=== PATIENT | female | born 1935 | race Caucasian/White ===

== ENCOUNTER 2017-03-23 17:10 | Inpatient (IN) ==
[2017-03-23] MEDS ORDERED: SODIUM CHLORIDE 0.9% 500 ML IV STA (17:29)
[2017-03-23 18:14] LABS: Basophils % 0.4 % (0.0-0.8); Hematocrit 25.7 VOL% (35.7-47.0); Hemoglobin 7.5 GM/DL (12.0-16.0); Immature Granulocytes % 0.4 %; Immature Granulocytes Absolute 0.02 #; Lymphocytes # 0.7 10*3/uL (1.4-4.0); Lymphocytes % 14.5 % (21.3-54.2); Mean Corpuscular HGB Conc 29.2 GM/DL (32-36); Mean Corpuscular Hemoglobin 21 PG (27-34); Mean Corpuscular Volume 70.8 FL (87-102); Mean Platelet Volume 10.4 FL (9.6-12.0); Monocytes # 0.3 10*3/uL (0.11-0.8); Monocytes % 6.7 % (1.7-12.7); Neutrophils # 3.7 10*3/uL (1.4-7.4); Platelet Count 285 T/CUMM (130-400); Red Blood Count 3.63 MC/CUMM (3.8-5.5); Red Cell Distribution Width 17.3 % (9.3-17.3); White Blood Count 4.8 T/CUMM (4-12)
[2017-03-23] MEDS ORDERED: SODIUM CHLORIDE 0.9% 1,000 ML IV PRN (18:24)
[2017-03-23 18:33] LABS: Alanine Aminotransferase 23 U/L (13-56); Albumin 3.9 G/DL (3.4-5.0); Alkaline Phosphatase 86 U/L (45-117); Aspartate Amino Transferase 28 U/L (0-37); Blood Urea Nitrogen 17 MG/DL (7-18); Calcium 9.6 MG/DL (8.5-10.1); Glucose 152 MG/DL (74-106); Osmolality,Calculated 270.4 MOS/KG (273-304); Potassium 3.8 MMOL/L (3.5-5.1); Sodium 133 MMOL/L (136-145); Total Protein 7.3 G/DL (6.4-8.3); Troponin I Only < 0.015 NG/ML (0.00-0.045)
[2017-03-23 18:35] LABS: INR 1.1; PT Patient Result 11.9 SECS
[2017-03-23] MEDS ORDERED: LABETALOL 20 MG/4 ML SYRINGE IV PRN (19:30)
[2017-03-23] MEDS ORDERED: DEXTROSE 50% 25 GM/50 ML VIAL IV PRN ×2 (19:30)
[2017-03-23] MEDS ORDERED: GLUCAGON 1 MG VIAL IM PRN ×2 (19:30)
[2017-03-23 20:29] LABS: Risk Ratio 4.37
[2017-03-23] MEDS: INSULIN REGULAR 100 UNIT/ML SUBCUT SCH (23:02)
[2017-03-23] MEDS: ACETAMINOPHEN 325 MG TABLET PO PRN (23:18)
[2017-03-23] MEDS: ZALEPLON 5 MG CAPSULE PO SCH (23:20)
[2017-03-24 06:01] LABS: Basophils % 0.7 % (0.0-0.8); Eosinophils % 0.3 % (0.00-10.9); Hematocrit 29.3 VOL% (35.7-47.0); Immature Granulocytes % 0.3 %; Immature Granulocytes Absolute 0.02 #; Lymphocytes # 1.7 10*3/uL (1.4-4.0); Lymphocytes % 28.1 % (21.3-54.2); Mean Corpuscular HGB Conc 30.7 GM/DL (32-36); Mean Corpuscular Hemoglobin 22 PG (27-34); Mean Corpuscular Volume 71.5 FL (87-102); Mean Platelet Volume 10.9 FL (9.6-12.0); Monocytes # 0.5 10*3/uL (0.11-0.8); Monocytes % 7.5 % (1.7-12.7); Neutrophils # 3.8 10*3/uL (1.4-7.4); Neutrophils % 63.1 % (38.7-73.9); Platelet Count 286 T/CUMM (130-400); Red Cell Distribution Width 18.5 % (9.3-17.3)
[2017-03-24 06:33] LABS: Albumin 3.6 G/DL (3.4-5.0); Bilirubin,Total 1.7 MG/DL (0.2-1.0); Calcium 9.3 MG/DL (8.5-10.1); Osmolality,Calculated 274.7 MOS/KG (273-304); Potassium 3.2 MMOL/L (3.5-5.1); Total Protein 7.2 G/DL (6.4-8.3)
[2017-03-24 06:50] LABS: Apearance,Urine Slightly Hazy (Clear); Bacteria,Urine Many /HPF (Few); Bilirubin,Urine Negative (Negative); Blood, Urine Small mg/dL (Negative); Glucose,Urine (UA) Negative (Negative); Ketones,Urine 5 mg/dL (Negative); Mucus,Urine Occasional /LPF (Occasional); Nitrite,Urine Positive (Negative); Protein,Urine 30 MG/DL; RBC,Urine 4 /HPF (0-4); Squamous Epithelial Cell,Urine Occasional /HPF (0-10); Urine Color Yellow (Yellow); Urine Specific Gravity 1.008 (1.001-1.035); Urine Urobilinogen < 2.0 EU/DL (0.2-1.0); WBC,Urine 16 /HPF (0-6)
[2017-03-24] MEDS ORDERED: INSULIN NPH/REGULAR 70/30 100 UNIT/ML SUBCUT PRN (07:22)
[2017-03-24] MEDS ORDERED: POTASSIUM CHLORIDE 20 MEQ TABLET PO ONE (07:25)
[2017-03-24] MEDS: NORTRIPTYLINE 25 MG CAPSULE PO SCH ×2 (08:51→20:51)
[2017-03-24] MEDS: PARoxetine 20 MG TABLET PO SCH (08:51)
[2017-03-24] MEDS: CIPROFLOXACIN 500 MG TABLET PO SCH ×2 (08:51→20:51)
[2017-03-24] MEDS: ASPIRIN EC 81 MG TABLET PO SCH (08:51)
[2017-03-24] MEDS: METOPROLOL TARTRATE 50 MG TABLET PO SCH ×2 (08:51→20:51)
[2017-03-24] MEDS: LISINOPRIL 2.5 MG TABLET PO SCH (08:52)
[2017-03-24] MEDS: INSULIN REGULAR 100 UNIT/ML SUBCUT SCH ×4 (08:52→21:12)
[2017-03-24] MEDS: POTASSIUM CHLORIDE 20 MEQ TABLET PO SCH (17:57)
[2017-03-24] MEDS: INSULIN NPH/REGULAR 70/30 100 UNIT/ML SUBCUT SCH (17:57)
[2017-03-24] MEDS: ONDANSETRON 4 MG/2 ML VIAL IV PRN (18:52)
[2017-03-24] MEDS: ATORVASTATIN 40 MG TABLET PO SCH (20:51)
[2017-03-24] MEDS: ZALEPLON 5 MG CAPSULE PO SCH (20:52)
[2017-03-25] MEDS: ACETAMINOPHEN 325 MG TABLET PO PRN ×2 (03:31→17:53)
[2017-03-25] MEDS: hydrALAZINE 20 MG/1 ML VIAL IV PRN (05:29)
[2017-03-25 06:32] LABS: Basophils # 0.1 10*3/uL (0.0-0.2); Basophils % 0.8 % (0.0-0.8); Eosinophils # 0.2 10*3/uL (0.0-0.87); Eosinophils % 2.2 % (0.00-10.9); Hematocrit 30.3 VOL% (35.7-47.0); Hemoglobin 9.2 GM/DL (12.0-16.0); Immature Granulocytes % 0.4 %; Immature Granulocytes Absolute 0.03 #; Lymphocytes # 1.9 10*3/uL (1.4-4.0); Lymphocytes % 25.5 % (21.3-54.2); Mean Corpuscular HGB Conc 30.4 GM/DL (32-36); Mean Corpuscular Hemoglobin 21 PG (27-34); Mean Corpuscular Volume 70.5 FL (87-102); Mean Platelet Volume 10.4 FL (9.6-12.0); Monocytes # 0.6 10*3/uL (0.11-0.8); Monocytes % 8.1 % (1.7-12.7); Neutrophils # 4.7 10*3/uL (1.4-7.4); Platelet Count 286 T/CUMM (130-400); Red Cell Distribution Width 18.8 % (9.3-17.3); White Blood Count 7.4 T/CUMM (4-12)
[2017-03-25 06:59] LABS: Calcium 9.3 MG/DL (8.5-10.1); Magnesium 1.9 MG/DL (1.8-2.4); Potassium 3.4 MMOL/L (3.5-5.1)
[2017-03-25] MEDS: ONDANSETRON 4 MG/2 ML VIAL IV PRN ×2 (08:15→17:53)
[2017-03-25] MEDS: PARoxetine 20 MG TABLET PO SCH (08:17)
[2017-03-25] MEDS: NORTRIPTYLINE 25 MG CAPSULE PO SCH ×2 (08:17→21:43)
[2017-03-25] MEDS: CIPROFLOXACIN 500 MG TABLET PO SCH ×2 (08:17→21:43)
[2017-03-25] MEDS: LISINOPRIL 2.5 MG TABLET PO SCH (08:17)
[2017-03-25] MEDS: ASPIRIN EC 81 MG TABLET PO SCH (08:18)
[2017-03-25] MEDS: INSULIN REGULAR 100 UNIT/ML SUBCUT SCH ×4 (08:18→21:43)
[2017-03-25] MEDS: METOPROLOL TARTRATE 50 MG TABLET PO SCH ×2 (08:18→21:43)
[2017-03-25] MEDS: INSULIN NPH/REGULAR 70/30 100 UNIT/ML SUBCUT SCH (17:45)
[2017-03-25] MEDS: POTASSIUM CHLORIDE 20 MEQ TABLET PO SCH (17:50)
[2017-03-25] MEDS ORDERED: traMADol 50 MG TABLET PO PRN (18:25)
[2017-03-25] MEDS: ATORVASTATIN 40 MG TABLET PO SCH (21:43)
[2017-03-25] MEDS: ZALEPLON 5 MG CAPSULE PO SCH (21:43)
[2017-03-26] MEDS: ONDANSETRON 4 MG/2 ML VIAL IV PRN (09:34)
[2017-03-26] MEDS: CIPROFLOXACIN 500 MG TABLET PO SCH ×2 (09:39→22:03)
[2017-03-26] MEDS: NORTRIPTYLINE 25 MG CAPSULE PO SCH ×2 (09:39→22:03)
[2017-03-26] MEDS: ASPIRIN EC 81 MG TABLET PO SCH (09:39)
[2017-03-26] MEDS: METOPROLOL TARTRATE 50 MG TABLET PO SCH ×2 (09:39→22:02)
[2017-03-26] MEDS: LISINOPRIL 2.5 MG TABLET PO SCH (09:39)
[2017-03-26] MEDS: PARoxetine 20 MG TABLET PO SCH (09:39)
[2017-03-26] MEDS: INSULIN REGULAR 100 UNIT/ML SUBCUT SCH ×4 (09:40→22:04)
[2017-03-26] MEDS ORDERED: POTASSIUM CHLORIDE 20 MEQ TABLET PO ONE (10:51)
[2017-03-26] MEDS: MECLIZINE 25 MG TABLET PO SCH ×2 (17:13→22:02)
[2017-03-26] MEDS: INSULIN NPH/REGULAR 70/30 100 UNIT/ML SUBCUT SCH (17:14)
[2017-03-26] MEDS: POTASSIUM CHLORIDE 20 MEQ TABLET PO SCH (17:16)
[2017-03-26] MEDS: ATORVASTATIN 40 MG TABLET PO SCH (22:03)
[2017-03-26] MEDS: ZALEPLON 5 MG CAPSULE PO SCH (22:03)
[2017-03-27 06:54] LABS: Calcium 9.4 MG/DL (8.5-10.1); Magnesium 1.9 MG/DL (1.8-2.4); Potassium 4.2 MMOL/L (3.5-5.1)
[2017-03-27] MEDS: NORTRIPTYLINE 25 MG CAPSULE PO SCH ×2 (09:51→21:56)
[2017-03-27] MEDS: LISINOPRIL 2.5 MG TABLET PO SCH (09:51)
[2017-03-27] MEDS: MECLIZINE 25 MG TABLET PO SCH ×3 (09:52→21:56)
[2017-03-27] MEDS: CIPROFLOXACIN 500 MG TABLET PO SCH ×2 (09:52→21:56)
[2017-03-27] MEDS: PARoxetine 20 MG TABLET PO SCH (09:52)
[2017-03-27] MEDS: ASPIRIN EC 81 MG TABLET PO SCH (09:52)
[2017-03-27] MEDS: METOPROLOL TARTRATE 50 MG TABLET PO SCH ×2 (09:52→21:55)
[2017-03-27] MEDS: INSULIN REGULAR 100 UNIT/ML SUBCUT SCH ×4 (09:52→22:00)
[2017-03-27] MEDS: PROMETHAZINE INJ 12.5 MG in SODIUM CHLORIDE 0.9% 50 ML IV PRN (13:29)
[2017-03-27] MEDS: INSULIN NPH/REGULAR 70/30 100 UNIT/ML SUBCUT SCH (17:25)
[2017-03-27] MEDS: POTASSIUM CHLORIDE 20 MEQ TABLET PO SCH (17:26)
[2017-03-27] MEDS: ZALEPLON 5 MG CAPSULE PO SCH (21:55)
[2017-03-27] MEDS: ATORVASTATIN 40 MG TABLET PO SCH (21:56)
[2017-03-28] MEDS: INSULIN REGULAR 100 UNIT/ML SUBCUT SCH ×4 (07:13→22:19)
[2017-03-28] MEDS: NORTRIPTYLINE 25 MG CAPSULE PO SCH ×2 (08:28→22:18)
[2017-03-28] MEDS: LISINOPRIL 2.5 MG TABLET PO SCH (08:28)
[2017-03-28] MEDS: ASPIRIN EC 81 MG TABLET PO SCH (08:29)
[2017-03-28] MEDS: METOPROLOL TARTRATE 50 MG TABLET PO SCH ×2 (08:29→22:18)
[2017-03-28] MEDS: PARoxetine 20 MG TABLET PO SCH (08:29)
[2017-03-28] MEDS: MECLIZINE 25 MG TABLET PO SCH ×3 (08:29→22:16)
[2017-03-28] MEDS: CIPROFLOXACIN 500 MG TABLET PO SCH ×2 (08:29→22:17)
[2017-03-28] MEDS ORDERED: DIAZEPAM 5 MG TABLET PO ONE (10:08)
[2017-03-28] MEDS: INSULIN NPH/REGULAR 70/30 100 UNIT/ML SUBCUT SCH (16:39)
[2017-03-28] MEDS: POTASSIUM CHLORIDE 20 MEQ TABLET PO SCH (16:55)
[2017-03-28] MEDS: ZALEPLON 5 MG CAPSULE PO SCH (22:16)
[2017-03-28] MEDS: ATORVASTATIN 40 MG TABLET PO SCH (22:17)
[2017-03-29] MEDS: MORPHINE 2 MG/1 ML SYRINGE IV PRN ×5 (01:08→22:47)
[2017-03-29] MEDS: NORTRIPTYLINE 25 MG CAPSULE PO SCH ×2 (10:41→22:46)
[2017-03-29] MEDS: LISINOPRIL 2.5 MG TABLET PO SCH (10:41)
[2017-03-29] MEDS: PARoxetine 20 MG TABLET PO SCH (10:41)
[2017-03-29] MEDS: MECLIZINE 25 MG TABLET PO SCH ×3 (10:41→22:47)
[2017-03-29] MEDS: CIPROFLOXACIN 500 MG TABLET PO SCH ×2 (10:41→22:46)
[2017-03-29] MEDS: ASPIRIN EC 81 MG TABLET PO SCH (10:41)
[2017-03-29] MEDS: METOPROLOL TARTRATE 50 MG TABLET PO SCH ×2 (10:41→22:46)
[2017-03-29] MEDS: INSULIN REGULAR 100 UNIT/ML SUBCUT SCH ×3 (12:57→22:53)
[2017-03-29] MEDS: PROMETHAZINE INJ 12.5 MG in SODIUM CHLORIDE 0.9% 50 ML IV PRN ×2 (14:19→22:51)
[2017-03-29] MEDS: INSULIN NPH/REGULAR 70/30 100 UNIT/ML SUBCUT SCH (17:53)
[2017-03-29] MEDS: POTASSIUM CHLORIDE 20 MEQ TABLET PO SCH (18:08)
[2017-03-29] MEDS: ZALEPLON 5 MG CAPSULE PO SCH (22:45)
[2017-03-29] MEDS: ATORVASTATIN 40 MG TABLET PO SCH (22:46)
[2017-03-30] MEDS: MORPHINE 2 MG/1 ML SYRINGE IV PRN ×3 (04:01→21:12)
[2017-03-30] MEDS: MECLIZINE 25 MG TABLET PO SCH ×3 (09:10→21:16)
[2017-03-30] MEDS: PARoxetine 20 MG TABLET PO SCH (09:10)
[2017-03-30] MEDS: LISINOPRIL 2.5 MG TABLET PO SCH (09:10)
[2017-03-30] MEDS: CIPROFLOXACIN 500 MG TABLET PO SCH ×2 (09:10→21:16)
[2017-03-30] MEDS: METOPROLOL TARTRATE 50 MG TABLET PO SCH ×2 (09:10→21:16)
[2017-03-30] MEDS: NORTRIPTYLINE 25 MG CAPSULE PO SCH ×2 (09:10→21:16)
[2017-03-30] MEDS: INSULIN REGULAR 100 UNIT/ML SUBCUT SCH ×4 (09:10→21:18)
[2017-03-30] MEDS: ASPIRIN EC 81 MG TABLET PO SCH (09:10)
[2017-03-30] MEDS: PROMETHAZINE INJ 12.5 MG in SODIUM CHLORIDE 0.9% 50 ML IV PRN (15:14)
[2017-03-30] MEDS: POTASSIUM CHLORIDE 20 MEQ TABLET PO SCH (16:42)
[2017-03-30] MEDS: INSULIN NPH/REGULAR 70/30 100 UNIT/ML SUBCUT SCH (16:44)
[2017-03-30] MEDS: ATORVASTATIN 40 MG TABLET PO SCH (21:16)
[2017-03-30] MEDS: ZALEPLON 5 MG CAPSULE PO SCH (21:16)
[2017-03-31] MEDS: MORPHINE 2 MG/1 ML SYRINGE IV PRN ×4 (00:40→22:44)
[2017-03-31] MEDS: hydrALAZINE 20 MG/1 ML VIAL IV PRN (06:17)
[2017-03-31] MEDS: MECLIZINE 25 MG TABLET PO SCH ×3 (09:51→22:00)
[2017-03-31] MEDS: LISINOPRIL 5 MG TABLET PO SCH (09:51)
[2017-03-31] MEDS: ASPIRIN EC 81 MG TABLET PO SCH (09:52)
[2017-03-31] MEDS: NORTRIPTYLINE 25 MG CAPSULE PO SCH ×2 (09:52→22:00)
[2017-03-31] MEDS: PARoxetine 20 MG TABLET PO SCH (09:52)
[2017-03-31] MEDS: METOPROLOL TARTRATE 50 MG TABLET PO SCH ×2 (09:52→22:00)
[2017-03-31] MEDS: INSULIN REGULAR 100 UNIT/ML SUBCUT SCH ×3 (09:52→22:02)
[2017-03-31] MEDS: PROCHLORPERAZINE 5 MG TABLET PO SCH ×2 (10:02→22:00)
[2017-03-31] MEDS: POTASSIUM CHLORIDE 20 MEQ TABLET PO SCH (17:30)
[2017-03-31] MEDS: ATORVASTATIN 40 MG TABLET PO SCH (22:00)
[2017-04-01 05:56] LABS: Calcium 9.3 MG/DL (8.5-10.1); Osmolality,Calculated 275.8 MOS/KG (273-304); Potassium 4.3 MMOL/L (3.5-5.1)
[2017-04-01] MEDS: hydrALAZINE 20 MG/1 ML VIAL IV PRN (09:12)
[2017-04-01] MEDS: PARoxetine 20 MG TABLET PO SCH (09:16)
[2017-04-01] MEDS: METOPROLOL TARTRATE 50 MG TABLET PO SCH ×2 (09:16→20:49)
[2017-04-01] MEDS: NORTRIPTYLINE 25 MG CAPSULE PO SCH ×2 (09:16→20:50)
[2017-04-01] MEDS: ASPIRIN EC 81 MG TABLET PO SCH (09:16)
[2017-04-01] MEDS: MECLIZINE 25 MG TABLET PO SCH ×3 (09:16→20:50)
[2017-04-01] MEDS: LISINOPRIL 5 MG TABLET PO SCH (09:16)
[2017-04-01] MEDS: INSULIN REGULAR 100 UNIT/ML SUBCUT SCH ×4 (09:16→21:04)
[2017-04-01] MEDS: PROCHLORPERAZINE 5 MG TABLET PO SCH ×2 (09:19→20:50)
[2017-04-01] MEDS: MORPHINE 2 MG/1 ML SYRINGE IV PRN ×2 (14:34→20:59)
[2017-04-01] MEDS: POTASSIUM CHLORIDE 20 MEQ TABLET PO SCH (17:59)
[2017-04-01] MEDS: ATORVASTATIN 40 MG TABLET PO SCH (20:50)
[2017-04-02] MEDS: MORPHINE 2 MG/1 ML SYRINGE IV PRN ×4 (04:20→16:53)
[2017-04-02] MEDS: INSULIN REGULAR 100 UNIT/ML SUBCUT SCH ×4 (08:15→20:34)
[2017-04-02] MEDS: MECLIZINE 25 MG TABLET PO SCH ×3 (10:22→20:34)
[2017-04-02] MEDS: ASPIRIN EC 81 MG TABLET PO SCH (10:22)
[2017-04-02] MEDS: PARoxetine 20 MG TABLET PO SCH (10:23)
[2017-04-02] MEDS: METOPROLOL TARTRATE 50 MG TABLET PO SCH ×2 (10:23→20:34)
[2017-04-02] MEDS: LISINOPRIL 5 MG TABLET PO SCH (10:23)
[2017-04-02] MEDS: NORTRIPTYLINE 25 MG CAPSULE PO SCH ×2 (10:23→20:34)
[2017-04-02] MEDS: PROCHLORPERAZINE 5 MG TABLET PO SCH ×2 (10:23→20:34)
[2017-04-02] MEDS: POTASSIUM CHLORIDE 20 MEQ TABLET PO SCH (16:54)
[2017-04-02] MEDS: ZALEPLON 5 MG CAPSULE PO SCH (20:34)
[2017-04-02] MEDS: ATORVASTATIN 40 MG TABLET PO SCH (20:34)
[2017-04-03] MEDS: MORPHINE 2 MG/1 ML SYRINGE IV PRN ×5 (02:48→21:01)
[2017-04-03] MEDS: INSULIN REGULAR 100 UNIT/ML SUBCUT SCH ×4 (08:00→21:11)
[2017-04-03] MEDS: PROCHLORPERAZINE 5 MG TABLET PO SCH ×2 (08:18→21:01)
[2017-04-03] MEDS: MECLIZINE 25 MG TABLET PO SCH ×3 (08:18→21:00)
[2017-04-03] MEDS: ASPIRIN EC 81 MG TABLET PO SCH (08:18)
[2017-04-03] MEDS: METOPROLOL TARTRATE 50 MG TABLET PO SCH ×2 (08:19→21:00)
[2017-04-03] MEDS: NORTRIPTYLINE 25 MG CAPSULE PO SCH ×2 (08:19→21:00)
[2017-04-03] MEDS: LISINOPRIL 5 MG TABLET PO SCH (08:20)
[2017-04-03] MEDS: PARoxetine 20 MG TABLET PO SCH (08:20)
[2017-04-03] MEDS: POTASSIUM CHLORIDE 20 MEQ TABLET PO SCH (16:31)
[2017-04-03] MEDS: ZALEPLON 5 MG CAPSULE PO SCH (21:00)
[2017-04-03] MEDS: ATORVASTATIN 40 MG TABLET PO SCH (21:00)
[2017-04-04] MEDS: INSULIN REGULAR 100 UNIT/ML SUBCUT SCH ×2 (07:57→11:41)
[2017-04-04] MEDS: ASPIRIN EC 81 MG TABLET PO SCH (08:33)
[2017-04-04] MEDS: METOPROLOL TARTRATE 50 MG TABLET PO SCH (08:33)
[2017-04-04] MEDS: MECLIZINE 25 MG TABLET PO SCH (08:33)
[2017-04-04] MEDS: PARoxetine 20 MG TABLET PO SCH (08:33)
[2017-04-04] MEDS: LISINOPRIL 5 MG TABLET PO SCH (08:33)
[2017-04-04] MEDS: NORTRIPTYLINE 25 MG CAPSULE PO SCH (08:33)
[2017-04-04] MEDS: MORPHINE 2 MG/1 ML SYRINGE IV PRN (08:39)
[2017-04-04] MEDS: PROCHLORPERAZINE 5 MG TABLET PO SCH (08:39)
[2017-04-04 12:07] VITALS: BP 141/88
== END 2017-04-04 14:00 | DRG 65 ==
LOC: EDBD → EDUNIT# → N.ED 17:10 → SUATTDRO 19:30 → N.EDINP 19:30 → N.2E 20:45
PROVIDERS: ADMIT Family Medicine; ATTEND Internal Medicine

== ENCOUNTER 2017-04-11 12:00 | Observation (INO) ==
[2017-04-11 12:57] LABS: Basophils % 0.8 % (0.0-0.8); Eosinophils # 0.1 10*3/uL (0.0-0.87); Eosinophils % 2.4 % (0.00-10.9); Hematocrit 27.6 VOL% (35.7-47.0); Hemoglobin 8.1 GM/DL (12.0-16.0); Immature Granulocytes % 0.4 %; Immature Granulocytes Absolute 0.02 #; Lymphocytes # 1.3 10*3/uL (1.4-4.0); Lymphocytes % 26.2 % (21.3-54.2); Mean Corpuscular HGB Conc 29.3 GM/DL (32-36); Mean Corpuscular Hemoglobin 22 PG (27-34); Mean Corpuscular Volume 74.8 FL (87-102); Monocytes # 0.3 10*3/uL (0.11-0.8); Neutrophils # 3.2 10*3/uL (1.4-7.4); Neutrophils % 64.2 % (38.7-73.9); Platelet Count 348 T/CUMM (130-400); Red Blood Count 3.69 MC/CUMM (3.8-5.5); Red Cell Distribution Width 21.7 % (9.3-17.3)
[2017-04-11 13:13] LABS: PT Patient Result 10.9 SECS; Partial Thromboplastin Time 26.5 SECS (0-40)
[2017-04-11 13:18] LABS: Albumin 3.4 G/DL (3.4-5.0); Bilirubin,Total 0.4 MG/DL (0.2-1.0); Calcium 9.4 MG/DL (8.5-10.1); Osmolality,Calculated 273.1 MOS/KG (273-304); Potassium 5.2 MMOL/L (3.5-5.1); Total Protein 6.6 G/DL (6.4-8.3)
[2017-04-11] MEDS ORDERED: DOCUSATE SODIUM 100 MG CAPSULE PO PRN (14:23)
[2017-04-11] MEDS ORDERED: diphenhydrAMINE CAP 25 MG CAPSULE PO PRN (14:23)
[2017-04-11] MEDS ORDERED: guaiFENesin/DM ER 600-30 MG TABLET PO PRN (14:23)
[2017-04-11] MEDS ORDERED: ONDANSETRON 4 MG/2 ML VIAL IV PRN (14:23)
[2017-04-11] MEDS ORDERED: GLUCAGON 1 MG VIAL IM PRN (14:58)
[2017-04-11] MEDS ORDERED: DEXTROSE 50% 25 GM/50 ML VIAL IV PRN (14:58)
[2017-04-11] MEDS: PROCHLORPERAZINE 10 MG TABLET PO SCH ×2 (15:50→22:56)
[2017-04-11] MEDS: METOPROLOL TARTRATE 50 MG TABLET PO SCH ×2 (15:51→22:56)
[2017-04-11] MEDS: ASPIRIN EC 81 MG TABLET PO SCH (15:51)
[2017-04-11] MEDS: LISINOPRIL 5 MG TABLET PO SCH (15:51)
[2017-04-11] MEDS: MECLIZINE 25 MG TABLET PO SCH ×2 (15:51→22:57)
[2017-04-11] MEDS: NORTRIPTYLINE 25 MG CAPSULE PO SCH ×2 (15:51→22:57)
[2017-04-11] MEDS: PANTOPRAZOLE 40 MG TABLET PO SCH (15:51)
[2017-04-11] MEDS: INSULIN LISPRO 100 UNIT/ML SUBCUT SCH (16:29)
[2017-04-11] MEDS: POTASSIUM CHLORIDE 20 MEQ TABLET PO SCH (16:48)
[2017-04-11 16:51] LABS: Troponin I Only < 0.015 NG/ML (0.00-0.045)
[2017-04-11 19:06] LABS: Troponin I Only < 0.015 NG/ML (0.00-0.045)
[2017-04-11] MEDS: ZALEPLON 5 MG CAPSULE PO SCH (22:57)
[2017-04-11] MEDS: ATORVASTATIN 40 MG TABLET PO SCH (22:57)
[2017-04-11] MEDS: ACETAMINOPHEN 325 MG TABLET PO PRN (23:02)
[2017-04-12] MEDS: ACETAMINOPHEN 325 MG TABLET PO PRN (04:14)
[2017-04-12 05:26] LABS: Basophils % 0.6 % (0.0-0.8); Eosinophils # 0.1 10*3/uL (0.0-0.87); Hematocrit 27.7 VOL% (35.7-47.0); Hemoglobin 8.1 GM/DL (12.0-16.0); Immature Granulocytes % 0.4 %; Immature Granulocytes Absolute 0.03 #; Lymphocytes # 1.6 10*3/uL (1.4-4.0); Mean Corpuscular HGB Conc 29.2 GM/DL (32-36); Mean Corpuscular Hemoglobin 22 PG (27-34); Mean Corpuscular Volume 73.7 FL (87-102); Mean Platelet Volume 10.2 FL (9.6-12.0); Monocytes # 0.5 10*3/uL (0.11-0.8); Monocytes % 6.9 % (1.7-12.7); Neutrophils # 4.7 10*3/uL (1.4-7.4); Neutrophils % 67.1 % (38.7-73.9); Platelet Count 331 T/CUMM (130-400); Red Blood Count 3.76 MC/CUMM (3.8-5.5); Red Cell Distribution Width 21.8 % (9.3-17.3)
[2017-04-12 05:55] LABS: Calcium 9.4 MG/DL (8.5-10.1); Magnesium 1.9 MG/DL (1.8-2.4); Osmolality,Calculated 278.7 MOS/KG (273-304); Potassium 4.1 MMOL/L (3.5-5.1)
[2017-04-12] MEDS: INSULIN LISPRO 100 UNIT/ML SUBCUT SCH ×2 (08:13→16:02)
[2017-04-12] MEDS: METOPROLOL TARTRATE 50 MG TABLET PO SCH ×2 (09:15→20:58)
[2017-04-12] MEDS: NORTRIPTYLINE 25 MG CAPSULE PO SCH ×2 (09:15→20:58)
[2017-04-12] MEDS: PROCHLORPERAZINE 10 MG TABLET PO SCH ×2 (09:15→20:58)
[2017-04-12] MEDS: MECLIZINE 25 MG TABLET PO SCH ×3 (09:15→20:58)
[2017-04-12] MEDS: PARoxetine 20 MG TABLET PO SCH (09:16)
[2017-04-12] MEDS: LISINOPRIL 5 MG TABLET PO SCH (09:16)
[2017-04-12] MEDS: PANTOPRAZOLE 40 MG TABLET PO SCH (09:16)
[2017-04-12] MEDS: ASPIRIN EC 81 MG TABLET PO SCH (09:16)
[2017-04-12] MEDS ORDERED: INSULIN NPH/REGULAR 70/30 100 UNIT/ML SUBCUT PRN (10:23)
[2017-04-12] MEDS ORDERED: hydrALAZINE 20 MG/1 ML VIAL IV PRN (10:26)
[2017-04-12] MEDS: INSULIN REGULAR 100 UNIT/ML SUBCUT SCH ×3 (12:30→21:52)
[2017-04-12] MEDS: metFORMIN 850 MG TABLET PO SCH (16:43)
[2017-04-12] MEDS: POTASSIUM CHLORIDE 20 MEQ TABLET PO SCH (16:43)
[2017-04-12] MEDS: INSULIN NPH/REGULAR 70/30 100 UNIT/ML SUBCUT SCH (16:43)
[2017-04-12] MEDS: ATORVASTATIN 40 MG TABLET PO SCH (20:58)
[2017-04-12] MEDS: ZALEPLON 5 MG CAPSULE PO SCH (20:58)
[2017-04-12] MEDS: MORPHINE 2 MG/1 ML SYRINGE IV PRN (20:58)
[2017-04-13] MEDS: MORPHINE 2 MG/1 ML SYRINGE IV PRN ×2 (01:02→08:01)
[2017-04-13] MEDS: metFORMIN 850 MG TABLET PO SCH ×2 (08:47→17:35)
[2017-04-13] MEDS: LISINOPRIL 5 MG TABLET PO SCH (08:47)
[2017-04-13] MEDS: ASPIRIN EC 81 MG TABLET PO SCH (08:47)
[2017-04-13] MEDS: MECLIZINE 25 MG TABLET PO SCH ×3 (08:47→21:52)
[2017-04-13] MEDS: METOPROLOL TARTRATE 50 MG TABLET PO SCH ×2 (08:48→21:53)
[2017-04-13] MEDS: PARoxetine 20 MG TABLET PO SCH (08:48)
[2017-04-13] MEDS: PANTOPRAZOLE 40 MG TABLET PO SCH (08:48)
[2017-04-13] MEDS: PROCHLORPERAZINE 10 MG TABLET PO SCH ×2 (08:48→21:53)
[2017-04-13] MEDS: INSULIN REGULAR 100 UNIT/ML SUBCUT SCH ×4 (08:54→22:52)
[2017-04-13] MEDS: INSULIN LISPRO 100 UNIT/ML SUBCUT SCH ×2 (08:55→17:36)
[2017-04-13] MEDS: NORTRIPTYLINE 25 MG CAPSULE PO SCH ×2 (08:57→21:53)
[2017-04-13] MEDS: oxyCODONE/ACETAMINOPHEN 5-325 MG TABLET PO PRN ×3 (10:58→21:52)
[2017-04-13] MEDS: POTASSIUM CHLORIDE 20 MEQ TABLET PO SCH (17:35)
[2017-04-13] MEDS: INSULIN NPH/REGULAR 70/30 100 UNIT/ML SUBCUT SCH (17:36)
[2017-04-13] MEDS: ZALEPLON 5 MG CAPSULE PO SCH (21:52)
[2017-04-13] MEDS: ATORVASTATIN 40 MG TABLET PO SCH (21:53)
[2017-04-14] MEDS: oxyCODONE/ACETAMINOPHEN 5-325 MG TABLET PO PRN ×2 (04:42→09:10)
[2017-04-14] MEDS: PANTOPRAZOLE 40 MG TABLET PO SCH (09:09)
[2017-04-14] MEDS: PARoxetine 20 MG TABLET PO SCH (09:09)
[2017-04-14] MEDS: metFORMIN 850 MG TABLET PO SCH (09:09)
[2017-04-14] MEDS: ASPIRIN EC 81 MG TABLET PO SCH (09:09)
[2017-04-14] MEDS: MECLIZINE 25 MG TABLET PO SCH (09:10)
[2017-04-14] MEDS: LISINOPRIL 5 MG TABLET PO SCH (09:10)
[2017-04-14] MEDS: METOPROLOL TARTRATE 50 MG TABLET PO SCH (09:11)
[2017-04-14] MEDS: PROCHLORPERAZINE 10 MG TABLET PO SCH (09:21)
[2017-04-14] MEDS: NORTRIPTYLINE 25 MG CAPSULE PO SCH (09:21)
[2017-04-14] MEDS: INSULIN REGULAR 100 UNIT/ML SUBCUT SCH ×2 (09:22→12:44)
[2017-04-14] MEDS: INSULIN LISPRO 100 UNIT/ML SUBCUT SCH (09:22)
[2017-04-14 12:39] VITALS: BP 164/86
== END 2017-04-14 13:25 ==
LOC: EDUNIT# → EDBD → N.ED 12:00 → N.EDINP 12:00 → N.TELES 14:54

== ENCOUNTER 2017-10-21 09:29 | Inpatient (IN) ==
[2017-10-21] MEDS ORDERED: PANTOPRAZOLE 40 MG VIAL IV STA (09:50)
[2017-10-21] MEDS ORDERED: ONDANSETRON 4 MG/2 ML VIAL IV STA (09:50)
[2017-10-21 10:20] LABS: Basophils % 0.6 % (0.0-0.8); Eosinophils # 0.2 10*3/uL (0.0-0.87); Eosinophils % 3.2 % (0.00-10.9); Hematocrit 19.8 VOL% (35.7-47.0); Immature Granulocytes % 0.4 %; Immature Granulocytes Absolute 0.02 #; Lymphocytes # 2.2 10*3/uL (1.4-4.0); Lymphocytes % 43.3 % (21.3-54.2); Mean Corpuscular HGB Conc 29.8 GM/DL (32-36); Mean Corpuscular Hemoglobin 21 PG (27-34); Mean Corpuscular Volume 71.5 FL (87-102); Mean Platelet Volume 10.8 FL (9.6-12.0); Monocytes # 0.5 10*3/uL (0.11-0.8); Monocytes % 10.3 % (1.7-12.7); Neutrophils # 2.1 10*3/uL (1.4-7.4); Neutrophils % 42.2 % (38.7-73.9); Platelet Count 274 T/CUMM (130-400); Red Blood Count 2.77 MC/CUMM (3.8-5.5); Red Cell Distribution Width 17.2 % (9.3-17.3)
[2017-10-21 10:25] LABS: Hemoglobin 5.9 GM/DL (12.0-16.0)
[2017-10-21 10:29] LABS: PT Patient Result 10.7 SECS; Partial Thromboplastin Time 25.1 SECS (0-40)
[2017-10-21 10:44] LABS: Platelet Estimate Normal
[2017-10-21 10:45] LABS: Hypochromasia Slight
[2017-10-21 10:48] LABS: % Iron Saturation 3.6 % (18-50); Alanine Aminotransferase 18 U/L (13-56); Albumin 3.2 G/DL (3.4-5.0); Alkaline Phosphatase 75 U/L (45-117); Aspartate Amino Transferase 17 U/L (0-37); Bilirubin,Total < 0.39 MG/DL (0.2-1.0); Blood Urea Nitrogen 17 MG/DL (7-18); Calcium 9.3 MG/DL (8.5-10.1); Glucose 224 MG/DL (74-106); Iron 15 UG/DL (50-170); Iron Binding Capacity 416 UG/DL (250-450); Osmolality,Calculated 285.5 MOS/KG (273-304); Sodium 139 MMOL/L (136-145); Total Protein 6.7 G/DL (6.4-8.3)
[2017-10-21] MEDS ORDERED: ONDANSETRON 4 MG/2 ML VIAL IV PRN (11:53)
[2017-10-21] MEDS ORDERED: CLORAZEPATE 3.75 MG TABLET PO PRN (14:30)
[2017-10-21] MEDS ORDERED: diphenhydrAMINE 2% CREAM 28 GM TUBE TOP PRN (14:30)
[2017-10-21] MEDS ORDERED: SODIUM CHLORIDE 0.9% 1,000 ML IV PRN (14:41)
[2017-10-21] MEDS: ACETAMINOPHEN 325 MG TABLET PO PRN (21:37)
[2017-10-21] MEDS: ATORVASTATIN 40 MG TABLET PO SCH (21:37)
[2017-10-21] MEDS: LORATADINE 10 MG TABLET PO SCH (21:37)
[2017-10-21] MEDS: LISINOPRIL 20 MG TABLET PO SCH (21:38)
[2017-10-21] MEDS: METOPROLOL TARTRATE 50 MG TABLET PO SCH (21:38)
[2017-10-21] MEDS: ASPIRIN EC 81 MG TABLET PO SCH (21:38)
[2017-10-21] MEDS: GABAPENTIN 100 MG CAPSULE PO SCH (21:38)
[2017-10-21] MEDS: PANTOPRAZOLE 40 MG VIAL IV SCH (21:39)
[2017-10-21 22:00] LABS: Apearance,Urine CLEAR (Clear); Bilirubin,Urine Negative (Negative); Blood, Urine Negative (Negative); Glucose,Urine (UA) Negative (Negative); Ketones,Urine Negative (Negative); Mucus,Urine Occasional /LPF (Occasional); Nitrite,Urine Negative (Negative); Protein,Urine Negative; Urine Color Yellow (Yellow); Urine Specific Gravity 1.005 (1.001-1.035); Urine Urobilinogen < 2.0 EU/DL (0.2-1.0); WBC,Urine 22 /HPF (0-6)
[2017-10-21] MEDS: INSULIN GLARGINE 100 UNIT/ML SUBCUT SCH (23:08)
[2017-10-22 05:57] LABS: Eosinophils # 0.2 10*3/uL (0.0-0.87); Eosinophils % 4.6 % (0.00-10.9); Hematocrit 25.5 VOL% (35.7-47.0); Immature Granulocytes % 0.2 %; Immature Granulocytes Absolute 0.01 #; Lymphocytes # 1.4 10*3/uL (1.4-4.0); Lymphocytes % 33.3 % (21.3-54.2); Mean Corpuscular HGB Conc 30.6 GM/DL (32-36); Mean Corpuscular Hemoglobin 24 PG (27-34); Mean Corpuscular Volume 77.5 FL (87-102); Mean Platelet Volume 10.2 FL (9.6-12.0); Monocytes # 0.4 10*3/uL (0.11-0.8); Monocytes % 9.2 % (1.7-12.7); Neutrophils # 2.1 10*3/uL (1.4-7.4); Neutrophils % 51.7 % (38.7-73.9); Platelet Count 216 T/CUMM (130-400); Red Blood Count 3.29 MC/CUMM (3.8-5.5); Red Cell Distribution Width 18.6 % (9.3-17.3); White Blood Count 4.1 T/CUMM (4-12)
[2017-10-22 05:59] LABS: Hemoglobin 7.8 GM/DL (12.0-16.0)
[2017-10-22 06:37] LABS: Calcium 9.5 MG/DL (8.5-10.1); Potassium 4.5 MMOL/L (3.5-5.1); Risk Ratio 2.72; Thyroid Stimulating Hormone 1.65 uIU/ml (0.358-3.74); VLDL CHOLESTEROL 28.2 MG/DL
[2017-10-22] MEDS: GABAPENTIN 100 MG CAPSULE PO SCH ×2 (09:09→23:01)
[2017-10-22] MEDS: MULTIVITAMIN (CENTRUM) TABLET PO SCH (09:09)
[2017-10-22] MEDS: cefTRIAXone 1,000 MG in SYRINGE 1 EACH IV SCH (09:10)
[2017-10-22] MEDS: PANTOPRAZOLE 40 MG VIAL IV SCH ×2 (09:10→23:01)
[2017-10-22] MEDS: FOLIC ACID 1 MG TABLET PO SCH (09:10)
[2017-10-22] MEDS: METOPROLOL TARTRATE 50 MG TABLET PO SCH ×2 (09:10→23:00)
[2017-10-22] MEDS: DULoxetine 30 MG CAPSULE PO SCH (09:10)
[2017-10-22] MEDS: amLODIPine 5 MG TABLET PO SCH (09:10)
[2017-10-22] MEDS: LORATADINE 10 MG TABLET PO SCH ×2 (09:10→23:00)
[2017-10-22 15:59] LABS: Hematocrit 26.7 VOL% (35.7-47.0); Hemoglobin 8.3 GM/DL (12.0-16.0)
[2017-10-22] MEDS: LISINOPRIL 20 MG TABLET PO SCH (22:59)
[2017-10-22] MEDS: ASPIRIN EC 81 MG TABLET PO SCH (22:59)
[2017-10-22] MEDS: ATORVASTATIN 40 MG TABLET PO SCH (23:00)
[2017-10-22] MEDS: INSULIN GLARGINE 100 UNIT/ML SUBCUT SCH (23:54)
[2017-10-23 03:34] LABS: Basophils # 0.1 10*3/uL (0.0-0.2); Basophils % 0.8 % (0.0-0.8); Eosinophils # 0.2 10*3/uL (0.0-0.87); Eosinophils % 3.2 % (0.00-10.9); Hematocrit 27.3 VOL% (35.7-47.0); Hemoglobin 8.7 GM/DL (12.0-16.0); Immature Granulocytes % 0.3 %; Immature Granulocytes Absolute 0.02 #; Lymphocytes # 2.5 10*3/uL (1.4-4.0); Lymphocytes % 40.1 % (21.3-54.2); Mean Corpuscular HGB Conc 31.9 GM/DL (32-36); Mean Corpuscular Hemoglobin 24 PG (27-34); Mean Platelet Volume 10.6 FL (9.6-12.0); Monocytes # 0.6 10*3/uL (0.11-0.8); Monocytes % 9.8 % (1.7-12.7); NRBC # 0.02 10*3/uL; Neutrophils # 2.9 10*3/uL (1.4-7.4); Neutrophils % 45.8 % (38.7-73.9); Platelet Count 245 T/CUMM (130-400); Red Blood Count 3.64 MC/CUMM (3.8-5.5); White Blood Count 6.3 T/CUMM (4-12)
[2017-10-23 03:58] LABS: Calcium 9.3 MG/DL (8.5-10.1)
[2017-10-23 03:59] LABS: Osmolality,Calculated 280.5 MOS/KG (273-304); Potassium 3.8 MMOL/L (3.5-5.1)
[2017-10-23] MEDS ORDERED: MORPHINE 4 MG/1 ML VIAL IV ONE (05:30)
[2017-10-23] MEDS: PANTOPRAZOLE 40 MG VIAL IV SCH ×2 (10:09→21:50)
[2017-10-23] MEDS: cefTRIAXone 1,000 MG in SYRINGE 1 EACH IV SCH (10:09)
[2017-10-23] MEDS: FOLIC ACID 1 MG TABLET PO SCH (10:10)
[2017-10-23] MEDS: amLODIPine 5 MG TABLET PO SCH (10:10)
[2017-10-23] MEDS: GABAPENTIN 100 MG CAPSULE PO SCH ×2 (10:10→21:50)
[2017-10-23] MEDS: DULoxetine 30 MG CAPSULE PO SCH (10:10)
[2017-10-23] MEDS: LORATADINE 10 MG TABLET PO SCH ×2 (10:10→21:54)
[2017-10-23] MEDS: MULTIVITAMIN (CENTRUM) TABLET PO SCH (10:10)
[2017-10-23] MEDS: METOPROLOL TARTRATE 50 MG TABLET PO SCH ×2 (10:10→21:55)
[2017-10-23] MEDS ORDERED: diphenhydrAMINE CAP 50 MG CAPSULE PO PRN (11:53)
[2017-10-23] MEDS ORDERED: traMADol 50 MG TABLET PO PRN (11:54)
[2017-10-23] MEDS: diphenhydrAMINE CAP 25 MG CAPSULE PO PRN (12:18)
[2017-10-23] MEDS ORDERED: BISACODYL 5 MG TABLET PO ONE (16:10)
[2017-10-23] MEDS ORDERED: POLYETHYLENE GLYCOL POWDER 255 GM BOTTLE PO ONE (17:00)
[2017-10-23] MEDS: ASPIRIN EC 81 MG TABLET PO SCH (21:54)
[2017-10-23] MEDS: INSULIN GLARGINE 100 UNIT/ML SUBCUT SCH (21:54)
[2017-10-23] MEDS: ATORVASTATIN 40 MG TABLET PO SCH (21:55)
[2017-10-23] MEDS: LISINOPRIL 20 MG TABLET PO SCH (21:55)
[2017-10-24 05:51] LABS: Basophils # 0.1 10*3/uL (0.0-0.2); Eosinophils # 0.2 10*3/uL (0.0-0.87); Eosinophils % 3.2 % (0.00-10.9); Hematocrit 30.5 VOL% (35.7-47.0); Hemoglobin 9.2 GM/DL (12.0-16.0); Immature Granulocytes % 0.3 %; Immature Granulocytes Absolute 0.02 #; Lymphocytes # 2.1 10*3/uL (1.4-4.0); Lymphocytes % 30.5 % (21.3-54.2); Mean Corpuscular HGB Conc 30.2 GM/DL (32-36); Mean Corpuscular Hemoglobin 24 PG (27-34); Mean Corpuscular Volume 78.2 FL (87-102); Mean Platelet Volume 10.7 FL (9.6-12.0); Monocytes # 0.9 10*3/uL (0.11-0.8); Monocytes % 12.9 % (1.7-12.7); NRBC # 0.03 10*3/uL; Neutrophils # 3.6 10*3/uL (1.4-7.4); Neutrophils % 52.1 % (38.7-73.9); Platelet Count 275 T/CUMM (130-400); Red Cell Distribution Width 19.2 % (9.3-17.3); White Blood Count 6.9 T/CUMM (4-12)
[2017-10-24] MEDS ORDERED: MAGNESIUM CITRATE 300 ML BOTTLE PO ONE (06:00)
[2017-10-24 06:07] LABS: Calcium 9.4 MG/DL (8.5-10.1); Potassium 3.7 MMOL/L (3.5-5.1)
[2017-10-24] MEDS ORDERED: ERGOCALCIFEROL 50,000 UNIT CAPSULE PO SCH (09:00)
[2017-10-24] MEDS: PANTOPRAZOLE 40 MG VIAL IV SCH ×2 (09:13→21:18)
[2017-10-24] MEDS: cefTRIAXone 1,000 MG in SYRINGE 1 EACH IV SCH (09:16)
[2017-10-24] MEDS: MULTIVITAMIN (CENTRUM) TABLET PO SCH (09:21)
[2017-10-24] MEDS: FOLIC ACID 1 MG TABLET PO SCH (09:21)
[2017-10-24] MEDS: LORATADINE 10 MG TABLET PO SCH ×2 (09:21→21:17)
[2017-10-24] MEDS: amLODIPine 5 MG TABLET PO SCH (09:21)
[2017-10-24] MEDS: METOPROLOL TARTRATE 50 MG TABLET PO SCH ×2 (09:21→21:18)
[2017-10-24] MEDS: GABAPENTIN 100 MG CAPSULE PO SCH ×2 (09:21→21:17)
[2017-10-24] MEDS: DULoxetine 30 MG CAPSULE PO SCH (09:21)
[2017-10-24 09:52] LABS: Hemoglobin A1 (Alkaline) 97.5 % (96.5-98.5); Hemoglobin A2 (Alkaline) 2.5 % (1.5-3.5)
[2017-10-24] MEDS ORDERED: LIDOCAINE 2% 5 ML VIAL ONE (10:00)
[2017-10-24] MEDS ORDERED: PROPOFOL 200 MG/20 ML VIAL IV ONE (10:00)
[2017-10-24] MEDS ORDERED: POLYETHYLENE GLYCOL POWDER 255 GM BOTTLE PO ONE (17:00)
[2017-10-24] MEDS: LISINOPRIL 20 MG TABLET PO SCH (21:17)
[2017-10-24] MEDS: INSULIN GLARGINE 100 UNIT/ML SUBCUT SCH (21:18)
[2017-10-24] MEDS: ATORVASTATIN 40 MG TABLET PO SCH (21:18)
[2017-10-24] MEDS: ASPIRIN EC 81 MG TABLET PO SCH (21:18)
[2017-10-25] MEDS ORDERED: MAGNESIUM CITRATE 300 ML BOTTLE PO ONE (06:00)
[2017-10-25] MEDS ORDERED: LIDOCAINE 2% 5 ML VIAL ONE (10:00)
[2017-10-25] MEDS ORDERED: ETOMIDATE 20 MG/10 ML VIAL IV ONE (10:00)
[2017-10-25] MEDS ORDERED: PROPOFOL 200 MG/20 ML VIAL IV ONE (10:00)
[2017-10-25] MEDS: DULoxetine 30 MG CAPSULE PO SCH (10:24)
[2017-10-25] MEDS: LORATADINE 10 MG TABLET PO SCH ×2 (10:24→21:02)
[2017-10-25] MEDS: FOLIC ACID 1 MG TABLET PO SCH (10:24)
[2017-10-25] MEDS: MULTIVITAMIN (CENTRUM) TABLET PO SCH (10:24)
[2017-10-25] MEDS: GABAPENTIN 100 MG CAPSULE PO SCH ×2 (10:25→21:01)
[2017-10-25] MEDS: amLODIPine 5 MG TABLET PO SCH (10:25)
[2017-10-25] MEDS: METOPROLOL TARTRATE 50 MG TABLET PO SCH ×2 (10:25→21:01)
[2017-10-25] MEDS: cefTRIAXone 1,000 MG in SYRINGE 1 EACH IV SCH (10:25)
[2017-10-25] MEDS: PANTOPRAZOLE 40 MG VIAL IV SCH ×2 (10:28→21:03)
[2017-10-25] MEDS: INSULIN GLARGINE 100 UNIT/ML SUBCUT SCH (21:01)
[2017-10-25] MEDS: ASPIRIN EC 81 MG TABLET PO SCH (21:02)
[2017-10-25] MEDS: LISINOPRIL 20 MG TABLET PO SCH (21:02)
[2017-10-25] MEDS: ATORVASTATIN 40 MG TABLET PO SCH (21:02)
[2017-10-25] MEDS: ACETAMINOPHEN 325 MG TABLET PO PRN (21:13)
[2017-10-25] MEDS: diphenhydrAMINE CAP 25 MG CAPSULE PO PRN (21:14)
[2017-10-26 04:48] LABS: Basophils % 0.8 % (0.0-0.8); Eosinophils # 0.2 10*3/uL (0.0-0.87); Eosinophils % 3.5 % (0.00-10.9); Hematocrit 27.9 VOL% (35.7-47.0); Hemoglobin 8.6 GM/DL (12.0-16.0); Immature Granulocytes % 0.4 %; Immature Granulocytes Absolute 0.02 #; Lymphocytes # 1.9 10*3/uL (1.4-4.0); Lymphocytes % 36.8 % (21.3-54.2); Mean Corpuscular HGB Conc 30.8 GM/DL (32-36); Mean Corpuscular Hemoglobin 23 PG (27-34); Mean Corpuscular Volume 75.2 FL (87-102); Mean Platelet Volume 10.6 FL (9.6-12.0); Monocytes # 0.6 10*3/uL (0.11-0.8); Monocytes % 11.4 % (1.7-12.7); NRBC # 0.03 10*3/uL; Neutrophils # 2.4 10*3/uL (1.4-7.4); Neutrophils % 47.1 % (38.7-73.9); Platelet Count 242 T/CUMM (130-400); Red Blood Count 3.71 MC/CUMM (3.8-5.5); Red Cell Distribution Width 19.9 % (9.3-17.3); White Blood Count 5.1 T/CUMM (4-12)
[2017-10-26 05:03] LABS: Calcium 9.5 MG/DL (8.5-10.1); Osmolality,Calculated 284.1 MOS/KG (273-304); Potassium 3.7 MMOL/L (3.5-5.1)
[2017-10-26] MEDS ORDERED: SODIUM CHLORIDE 0.9% 1,000 ML IV PRN (08:49)
[2017-10-26] MEDS: DULoxetine 30 MG CAPSULE PO SCH (09:31)
[2017-10-26] MEDS: FOLIC ACID 1 MG TABLET PO SCH (09:31)
[2017-10-26] MEDS: PANTOPRAZOLE 40 MG TABLET PO SCH ×2 (09:31→20:56)
[2017-10-26] MEDS: METOPROLOL TARTRATE 50 MG TABLET PO SCH ×2 (09:31→20:56)
[2017-10-26] MEDS: MULTIVITAMIN (CENTRUM) TABLET PO SCH (09:32)
[2017-10-26] MEDS: cefTRIAXone 1,000 MG in SYRINGE 1 EACH IV SCH (09:32)
[2017-10-26] MEDS: LORATADINE 10 MG TABLET PO SCH ×2 (09:32→20:57)
[2017-10-26] MEDS: GABAPENTIN 100 MG CAPSULE PO SCH (09:32)
[2017-10-26] MEDS: amLODIPine 5 MG TABLET PO SCH (09:37)
[2017-10-26] MEDS ORDERED: IRON SUCROSE 200 MG in SODIUM CHLORIDE 0.9% 100 ML IV ONE (10:00)
[2017-10-26] MEDS ORDERED: hydroCHLOROthiazide 25 MG TABLET PO ONE (14:30)
[2017-10-26] MEDS ORDERED: BUTALBITAL/ACETAMIN/CAFFEINE 50-325-40 MG TABLET PO PRN (15:24)
[2017-10-26] MEDS: LISINOPRIL 20 MG TABLET PO SCH (20:55)
[2017-10-26] MEDS: ATORVASTATIN 40 MG TABLET PO SCH (20:56)
[2017-10-26] MEDS: ASPIRIN EC 81 MG TABLET PO SCH (20:57)
[2017-10-26] MEDS: INSULIN GLARGINE 100 UNIT/ML SUBCUT SCH (20:58)
[2017-10-26] MEDS ORDERED: AMITRIPTYLINE 25 MG TABLET PO SCH (21:00)
[2017-10-27 07:35] LABS: Hematocrit 31.2 VOL% (35.7-47.0); Hemoglobin 9.6 GM/DL (12.0-16.0)
[2017-10-27] MEDS: METOPROLOL TARTRATE 50 MG TABLET PO SCH (10:05)
[2017-10-27] MEDS: cefTRIAXone 1,000 MG in SYRINGE 1 EACH IV SCH (10:06)
[2017-10-27] MEDS: amLODIPine 5 MG TABLET PO SCH (10:06)
[2017-10-27] MEDS: DULoxetine 30 MG CAPSULE PO SCH (10:06)
[2017-10-27] MEDS: FOLIC ACID 1 MG TABLET PO SCH (10:06)
[2017-10-27] MEDS: PANTOPRAZOLE 40 MG TABLET PO SCH (10:06)
[2017-10-27] MEDS: MULTIVITAMIN (CENTRUM) TABLET PO SCH (10:06)
[2017-10-27] MEDS: LORATADINE 10 MG TABLET PO SCH (10:06)
[2017-10-27 12:28] VITALS: BP 150/85
== END 2017-10-27 13:42 | disposition home or self-care (01) | DRG 812 ==
LOC: EDBD → EDUNIT# → N.ED 09:29 → N.EDINP 11:25 → SUATTDRO 11:25 → N.EDINP 14:29 → N.2E 14:43
PROVIDERS: ADMIT Family Medicine

== ENCOUNTER 2017-12-15 17:39 | Inpatient (IN) ==
[2017-12-15] MEDS ORDERED: SODIUM CHLORIDE 0.9% 1,000 ML IV STA (18:22)
[2017-12-15 18:32] LABS: Basophils % 0.5 % (0.0-0.8); Eosinophils % 0.3 % (0.00-10.9); Hematocrit 35.5 VOL% (35.7-47.0); Hemoglobin 11.9 GM/DL (12.0-16.0); Immature Granulocytes % 0.3 %; Immature Granulocytes Absolute 0.02 #; Lymphocytes % 33.2 % (21.3-54.2); Mean Corpuscular HGB Conc 33.5 GM/DL (32-36); Mean Corpuscular Hemoglobin 29 PG (27-34); Mean Corpuscular Volume 85.3 FL (87-102); Mean Platelet Volume 10.4 FL (9.6-12.0); Monocytes # 0.5 10*3/uL (0.11-0.8); Monocytes % 8.7 % (1.7-12.7); Neutrophils # 3.5 10*3/uL (1.4-7.4); Platelet Count 322 T/CUMM (130-400); Red Blood Count 4.16 MC/CUMM (3.8-5.5); Red Cell Distribution Width 25.2 % (9.3-17.3); White Blood Count 6.1 T/CUMM (4-12)
[2017-12-15 18:44] LABS: Albumin 3.1 G/DL (3.4-5.0); Bilirubin,Total 0.5 MG/DL (0.2-1.0); Calcium 8.9 MG/DL (8.5-10.1); Potassium 3.2 MMOL/L (3.5-5.1); Total Protein 6.5 G/DL (6.4-8.3)
[2017-12-15] MEDS ORDERED: MORPHINE 4 MG/1 ML VIAL IV STA (18:54)
[2017-12-15] MEDS ORDERED: ONDANSETRON 4 MG/2 ML VIAL IV STA (18:54)
[2017-12-15] MEDS ORDERED: PANTOPRAZOLE 40 MG VIAL IV STA (18:58)
[2017-12-15 19:16] LABS: Anisocytosis 1+; Microcytosis 1+; Platelet Estimate Adequate
[2017-12-15] MEDS ORDERED: HYDROmorphone 2 MG/1 ML VIAL IV STA (20:16)
[2017-12-15] MEDS ORDERED: GLUCAGON 1 MG VIAL IM PRN (22:30)
[2017-12-15] MEDS ORDERED: DEXTROSE 50% 25 GM/50 ML VIAL IV PRN (22:30)
[2017-12-15] MEDS: SODIUM CHLORIDE 0.9% 1,000 ML IV SCH (23:30)
[2017-12-16] MEDS: HYDROmorphone 2 MG/1 ML VIAL IV PRN ×3 (00:50→09:47)
[2017-12-16] MEDS: POTASSIUM CHLORIDE RIDER 10 MEQ in PREMIX 1 EACH IV PRN ×4 (01:30→07:00)
[2017-12-16 06:28] LABS: Apearance,Urine CLOUDY (Clear); Bacteria,Urine Few /HPF (Few); Bilirubin,Urine Negative (Negative); Blood, Urine Small mg/dL (Negative); Glucose,Urine (UA) Negative (Negative); Ketones,Urine Negative (Negative); Mucus,Urine Few /LPF (Occasional); Nitrite,Urine Positive (Negative); Protein,Urine Negative; Squamous Epithelial Cell,Urine Occasional /HPF (0-10); Urine Color Yellow (Yellow); Urine Specific Gravity 1.006 (1.001-1.035); Urine Urobilinogen < 2.0 EU/DL (0.2-1.0); WBC,Urine 75 /HPF (0-6)
[2017-12-16 06:34] LABS: Basophils % 0.5 % (0.0-0.8); Eosinophils % 0.7 % (0.00-10.9); Hematocrit 33.9 VOL% (35.7-47.0); Hemoglobin 10.5 GM/DL (12.0-16.0); Immature Granulocytes % 0.2 %; Immature Granulocytes Absolute 0.01 #; Lymphocytes # 2.1 10*3/uL (1.4-4.0); Lymphocytes % 35.9 % (21.3-54.2); Mean Corpuscular Hemoglobin 27 PG (27-34); Mean Corpuscular Volume 87.4 FL (87-102); Mean Platelet Volume 10.1 FL (9.6-12.0); Monocytes # 0.5 10*3/uL (0.11-0.8); Monocytes % 7.9 % (1.7-12.7); Neutrophils # 3.3 10*3/uL (1.4-7.4); Neutrophils % 54.8 % (38.7-73.9); Platelet Count 258 T/CUMM (130-400); Red Blood Count 3.88 MC/CUMM (3.8-5.5); Red Cell Distribution Width 25.2 % (9.3-17.3); White Blood Count 5.9 T/CUMM (4-12)
[2017-12-16 06:56] LABS: Platelet Estimate Normal
[2017-12-16 07:02] LABS: Calcium 8.9 MG/DL (8.5-10.1); Osmolality,Calculated 276.4 MOS/KG (273-304); Potassium 3.7 MMOL/L (3.5-5.1)
[2017-12-16] MEDS: INSULIN REGULAR 100 UNIT/ML SUBCUT SCH ×2 (07:14→11:00)
[2017-12-16] MEDS ORDERED: PANTOPRAZOLE 40 MG VIAL IV SCH (09:00)
[2017-12-16 11:57] LABS: Cancer Antigen 19-9 22.5 U/ML (0-37); Carcinoembryonic Antigen 0.6 NG/ML (0.0-5.0)
[2017-12-16] MEDS ORDERED: MAGNESIUM SULF RIDER 4 GM in PREMIX 1 EACH IV PRN (13:04)
[2017-12-16] MEDS: MORPHINE 4 MG/1 ML VIAL IV PRN ×2 (13:17→21:22)
[2017-12-16] MEDS: cefTRIAXone 1,000 MG in SYRINGE 1 EACH IV SCH (13:18)
[2017-12-16] MEDS: PHENAZOPYRIDINE 95 MG TABLET PO SCH ×2 (13:19→16:16)
[2017-12-16] MEDS: NEOMYC/POLYMYX/DEXAMETH OPH SUSP 5 ML BOTTLE BOTH EYES SCH ×3 (15:15→21:11)
[2017-12-16] MEDS: SUCRALFATE 1 GM/10 ML UDCUP PO SCH ×2 (16:15→21:11)
[2017-12-16] MEDS: PANTOPRAZOLE 40 MG VIAL IV SCH (21:11)
[2017-12-16] MEDS: SODIUM CHLORIDE 0.9% 1,000 ML IV SCH (21:12)
[2017-12-17 06:03] LABS: Basophils % 0.7 % (0.0-0.8); Eosinophils # 0.2 10*3/uL (0.0-0.87); Eosinophils % 4.7 % (0.00-10.9); Hemoglobin 10.4 GM/DL (12.0-16.0); Immature Granulocytes % 0.2 %; Immature Granulocytes Absolute 0.01 #; Lymphocytes # 1.9 10*3/uL (1.4-4.0); Lymphocytes % 41.3 % (21.3-54.2); Mean Corpuscular HGB Conc 30.6 GM/DL (32-36); Mean Corpuscular Hemoglobin 27 PG (27-34); Mean Corpuscular Volume 88.8 FL (87-102); Mean Platelet Volume 10.1 FL (9.6-12.0); Monocytes # 0.4 10*3/uL (0.11-0.8); Monocytes % 7.8 % (1.7-12.7); Neutrophils % 45.3 % (38.7-73.9); Platelet Count 240 T/CUMM (130-400); Red Blood Count 3.83 MC/CUMM (3.8-5.5); White Blood Count 4.5 T/CUMM (4-12)
[2017-12-17 06:34] LABS: Calcium 9.6 MG/DL (8.5-10.1); Potassium 4.2 MMOL/L (3.5-5.1)
[2017-12-17] MEDS: SUCRALFATE 1 GM/10 ML UDCUP PO SCH ×4 (07:36→20:02)
[2017-12-17] MEDS: MORPHINE 4 MG/1 ML VIAL IV PRN ×4 (07:36→20:01)
[2017-12-17 08:10] LABS: Platelet Estimate Normal
[2017-12-17] MEDS: PANTOPRAZOLE 40 MG VIAL IV SCH ×2 (08:16→20:02)
[2017-12-17] MEDS: PHENAZOPYRIDINE 95 MG TABLET PO SCH ×3 (08:16→17:37)
[2017-12-17] MEDS: NEOMYC/POLYMYX/DEXAMETH OPH SUSP 5 ML BOTTLE BOTH EYES SCH (08:16)
[2017-12-17] MEDS: ONDANSETRON 4 MG/2 ML VIAL IV PRN (11:16)
[2017-12-17] MEDS: cefTRIAXone 1,000 MG in SYRINGE 1 EACH IV SCH (12:33)
[2017-12-17] MEDS: ERYTHROMYCIN 0.5% OPHT OINT 3.5 GM TUBE BOTH EYES SCH ×2 (15:17→20:02)
[2017-12-17] MEDS: SODIUM CHLORIDE 0.9% 1,000 ML IV SCH (16:47)
[2017-12-18] MEDS: PHENAZOPYRIDINE 95 MG TABLET PO SCH ×3 (08:13→17:18)
[2017-12-18] MEDS: SUCRALFATE 1 GM/10 ML UDCUP PO SCH ×4 (08:13→20:38)
[2017-12-18] MEDS: ERYTHROMYCIN 0.5% OPHT OINT 3.5 GM TUBE BOTH EYES SCH ×3 (08:14→20:38)
[2017-12-18] MEDS: PANTOPRAZOLE 40 MG VIAL IV SCH ×2 (08:14→20:38)
[2017-12-18] MEDS: MORPHINE 4 MG/1 ML VIAL IV PRN ×3 (08:23→20:50)
[2017-12-18] MEDS: SODIUM CHLORIDE 0.9% 1,000 ML IV SCH (11:18)
[2017-12-18] MEDS: cefTRIAXone 1,000 MG in SYRINGE 1 EACH IV SCH (12:42)
[2017-12-18] MEDS: ONDANSETRON 4 MG/2 ML VIAL IV PRN (20:51)
[2017-12-19] MEDS: ONDANSETRON 4 MG/2 ML VIAL IV PRN ×2 (05:03→19:18)
[2017-12-19] MEDS: MORPHINE 4 MG/1 ML VIAL IV PRN ×3 (05:32→19:15)
[2017-12-19 09:39] LABS: Calcium 8.7 MG/DL (8.5-10.1); Potassium 3.4 MMOL/L (3.5-5.1)
[2017-12-19] MEDS: PHENAZOPYRIDINE 95 MG TABLET PO SCH ×2 (10:27→16:44)
[2017-12-19] MEDS: SUCRALFATE 1 GM/10 ML UDCUP PO SCH ×4 (10:27→21:30)
[2017-12-19] MEDS: ERYTHROMYCIN 0.5% OPHT OINT 3.5 GM TUBE BOTH EYES SCH ×3 (10:28→21:32)
[2017-12-19] MEDS ORDERED: MAGNESIUM SULF RIDER 4 GM in PREMIX 1 EACH IV ONE (10:52)
[2017-12-19] MEDS: MAGNESIUM SULF RIDER 2 GM in PREMIX 1 EACH IV PRN ×2 (11:58→14:12)
[2017-12-19] MEDS: PANTOPRAZOLE 40 MG VIAL IV SCH ×2 (12:00→21:29)
[2017-12-19] MEDS: LEVOFLOXACIN INJ 500 MG in PREMIX 1 EACH IV SCH (12:04)
[2017-12-19] MEDS: SODIUM CHLORIDE 0.9% 1,000 ML IV SCH ×2 (13:47→21:32)
[2017-12-19] MEDS: POTASSIUM CHLORIDE RIDER 10 MEQ in PREMIX 1 EACH IV PRN ×3 (14:11→16:50)
[2017-12-19] MEDS ORDERED: PHENAZOPYRIDINE 95 MG TABLET PO SCH (16:30)
[2017-12-19] MEDS: PROCHLORPERAZINE 10 MG TABLET PO SCH (21:29)
[2017-12-20 08:19] LABS: Basophils % 0.5 % (0.0-0.8); Eosinophils # 0.1 10*3/uL (0.0-0.87); Eosinophils % 2.9 % (0.00-10.9); Hemoglobin 10.4 GM/DL (12.0-16.0); Immature Granulocytes % 0.5 %; Immature Granulocytes Absolute 0.02 #; Lymphocytes # 0.7 10*3/uL (1.4-4.0); Lymphocytes % 15.8 % (21.3-54.2); Mean Corpuscular HGB Conc 31.5 GM/DL (32-36); Mean Corpuscular Hemoglobin 28 PG (27-34); Mean Corpuscular Volume 87.3 FL (87-102); Mean Platelet Volume 9.8 FL (9.6-12.0); Monocytes # 0.4 10*3/uL (0.11-0.8); Monocytes % 8.4 % (1.7-12.7); Neutrophils % 71.9 % (38.7-73.9); Platelet Count 218 T/CUMM (130-400); Red Blood Count 3.78 MC/CUMM (3.8-5.5); Red Cell Distribution Width 22.9 % (9.3-17.3); White Blood Count 4.2 T/CUMM (4-12)
[2017-12-20 08:40] LABS: Osmolality,Calculated 284.7 MOS/KG (273-304); Potassium 3.1 MMOL/L (3.5-5.1)
[2017-12-20] MEDS ORDERED: LIDOCAINE 100 MG/5 ML SYRINGE ONE (09:00)
[2017-12-20] MEDS ORDERED: PROPOFOL 200 MG/20 ML VIAL IV ONE (09:00)
[2017-12-20 09:13] LABS: Band Neutrophils 2 % (0-10); Eosinophils 1 % (0-10); Lymphocytes 19 % (20-55); Segmented Neutrophils 73 % (50-85); Total Cells Counted 100
[2017-12-20 09:17] LABS: Platelet Estimate Normal
[2017-12-20 09:22] LABS: Hypochromasia Slight; Polychromasia Few
[2017-12-20 09:50] LABS: Anisocytosis 1+
[2017-12-20 09:51] LABS: Macrocytosis Slight
[2017-12-20] MEDS: SUCRALFATE 1 GM/10 ML UDCUP PO SCH ×4 (10:14→20:32)
[2017-12-20] MEDS: ERYTHROMYCIN 0.5% OPHT OINT 3.5 GM TUBE BOTH EYES SCH ×3 (10:15→20:33)
[2017-12-20] MEDS: SODIUM CHLOR 0.9% KCL 20 MEQ 20 MEQ/1,000 ML BAG IV SCH (10:15)
[2017-12-20] MEDS: PANTOPRAZOLE 40 MG VIAL IV SCH ×2 (10:15→20:33)
[2017-12-20] MEDS: PROCHLORPERAZINE 10 MG TABLET PO SCH ×3 (10:15→20:32)
[2017-12-20] MEDS: POTASSIUM CHLORIDE RIDER 10 MEQ in PREMIX 1 EACH IV SCH ×4 (10:16→17:00)
[2017-12-20] MEDS ORDERED: LEVOFLOXACIN INJ 500 MG in PREMIX 1 EACH IV SCH (15:00)
[2017-12-20] MEDS: LEVOFLOXACIN INJ 500 MG in PREMIX 1 EACH IV SCH (15:02)
[2017-12-20] MEDS: SODIUM CHLORIDE 0.9% 1,000 ML IV SCH (15:02)
[2017-12-20] MEDS: CIPROFLOXACIN 0.3% OPH SOLN 2.5 ML BOTTLE RIGHT EYE SCH ×2 (20:08→22:23)
[2017-12-20] MEDS: POTASSIUM CHLORIDE 20 MEQ PACK PO SCH (22:23)
[2017-12-20] MEDS: MORPHINE 4 MG/1 ML VIAL IV PRN (22:50)
[2017-12-21] MEDS: SODIUM CHLOR 0.9% KCL 20 MEQ 20 MEQ/1,000 ML BAG IV SCH ×3 (01:55→20:51)
[2017-12-21] MEDS: CIPROFLOXACIN 0.3% OPH SOLN 2.5 ML BOTTLE RIGHT EYE SCH ×6 (01:55→22:36)
[2017-12-21 08:00] LABS: Basophils % 0.6 % (0.0-0.8); Eosinophils # 0.2 10*3/uL (0.0-0.87); Eosinophils % 5.6 % (0.00-10.9); Hematocrit 32.5 VOL% (35.7-47.0); Hemoglobin 10.4 GM/DL (12.0-16.0); Immature Granulocytes % 0.3 %; Immature Granulocytes Absolute 0.01 #; Lymphocytes # 1.5 10*3/uL (1.4-4.0); Lymphocytes % 46.3 % (21.3-54.2); Mean Corpuscular Hemoglobin 28 PG (27-34); Mean Corpuscular Volume 87.6 FL (87-102); Mean Platelet Volume 9.5 FL (9.6-12.0); Monocytes # 0.4 10*3/uL (0.11-0.8); Monocytes % 13.4 % (1.7-12.7); Neutrophils # 1.1 10*3/uL (1.4-7.4); Neutrophils % 33.8 % (38.7-73.9); Platelet Count 205 T/CUMM (130-400); Red Blood Count 3.71 MC/CUMM (3.8-5.5); Red Cell Distribution Width 23.4 % (9.3-17.3); White Blood Count 3.2 T/CUMM (4-12)
[2017-12-21] MEDS: SUCRALFATE 1 GM/10 ML UDCUP PO SCH ×4 (08:04→20:54)
[2017-12-21] MEDS: POTASSIUM CHLORIDE 20 MEQ PACK PO SCH (08:04)
[2017-12-21] MEDS: ERYTHROMYCIN 0.5% OPHT OINT 3.5 GM TUBE BOTH EYES SCH ×3 (08:05→20:47)
[2017-12-21] MEDS: PANTOPRAZOLE 40 MG VIAL IV SCH (08:05)
[2017-12-21] MEDS: PROCHLORPERAZINE 10 MG TABLET PO SCH ×3 (08:05→20:45)
[2017-12-21 08:17] LABS: Osmolality,Calculated 281.8 MOS/KG (273-304); Potassium 4.2 MMOL/L (3.5-5.1)
[2017-12-21 08:24] LABS: Eosinophils 3 % (0-10); Lymphocytes 40 % (20-55); Segmented Neutrophils 50 % (50-85); Total Cells Counted 100
[2017-12-21 08:30] LABS: Anisocytosis 1+
[2017-12-21 08:31] LABS: Poikilocytosis 1+
[2017-12-21 08:32] LABS: Polychromasia Few
[2017-12-21 08:33] LABS: Microcytosis 1+
[2017-12-21 08:34] LABS: Platelet Estimate Normal
[2017-12-21 08:38] LABS: Hypochromasia Slight
[2017-12-21] MEDS: LACTOBACILLUS ACIDOPHILUS/BULGARICUS CAPLET PO SCH (09:51)
[2017-12-21] MEDS: MORPHINE 4 MG/1 ML VIAL IV PRN ×3 (09:51→18:05)
[2017-12-21] MEDS: VANCOMYCIN 50 MG/ML 60 ML/BOTTLE PO SCH ×2 (10:03→17:49)
[2017-12-21] MEDS ORDERED: LEVOFLOXACIN 500 MG TABLET PO ONE (12:00)
[2017-12-21] MEDS ORDERED: ZALEPLON 5 MG CAPSULE PO PRN (16:42)
[2017-12-21] MEDS: PANTOPRAZOLE 40 MG TABLET PO SCH (20:46)
[2017-12-21] MEDS: METOPROLOL TARTRATE 50 MG TABLET PO SCH (20:46)
[2017-12-21] MEDS: ROSUVASTATIN 20 MG TABLET PO SCH (20:46)
[2017-12-21] MEDS ORDERED: METOPROLOL TARTRATE 50 MG TABLET PO SCH (21:00)
[2017-12-21 21:05] LABS: Troponin I 0.136 NG/ML (0.00-0.045)
[2017-12-22] MEDS: VANCOMYCIN 50 MG/ML 60 ML/BOTTLE PO SCH ×5 (00:12→23:32)
[2017-12-22] MEDS: MORPHINE 4 MG/1 ML VIAL IV PRN (01:03)
[2017-12-22] MEDS: CIPROFLOXACIN 0.3% OPH SOLN 2.5 ML BOTTLE RIGHT EYE SCH ×6 (01:04→21:42)
[2017-12-22] MEDS: SODIUM CHLOR 0.9% KCL 20 MEQ 20 MEQ/1,000 ML BAG IV SCH ×3 (03:29→23:38)
[2017-12-22] MEDS ORDERED: ENOXAPARIN 80 MG/0.8 ML SYRINGE SUBCUT ONE (07:30)
[2017-12-22] MEDS: SUCRALFATE 1 GM/10 ML UDCUP PO SCH ×4 (08:02→21:42)
[2017-12-22] MEDS: LACTOBACILLUS ACIDOPHILUS/BULGARICUS CAPLET PO SCH (08:03)
[2017-12-22] MEDS: PANTOPRAZOLE 40 MG TABLET PO SCH ×2 (08:03→21:42)
[2017-12-22] MEDS: POTASSIUM CHLORIDE 20 MEQ PACK PO SCH (08:03)
[2017-12-22] MEDS: PROCHLORPERAZINE 10 MG TABLET PO SCH ×3 (08:04→21:42)
[2017-12-22] MEDS: ASPIRIN EC 81 MG TABLET PO SCH (08:04)
[2017-12-22] MEDS: METOPROLOL TARTRATE 50 MG TABLET PO SCH ×2 (08:04→21:43)
[2017-12-22] MEDS: ERYTHROMYCIN 0.5% OPHT OINT 3.5 GM TUBE BOTH EYES SCH ×3 (08:11→21:42)
[2017-12-22] MEDS ORDERED: ENOXAPARIN 40 MG/0.4 ML SYRINGE SUBCUT SCH (09:00)
[2017-12-22 09:13] LABS: Basophils % 0.4 % (0.0-0.8); Eosinophils # 0.3 10*3/uL (0.0-0.87); Eosinophils % 5.5 % (0.00-10.9); Hematocrit 38.5 VOL% (35.7-47.0); Hemoglobin 11.9 GM/DL (12.0-16.0); Immature Granulocytes % 0.2 %; Immature Granulocytes Absolute 0.01 #; Lymphocytes # 2.2 10*3/uL (1.4-4.0); Lymphocytes % 46.3 % (21.3-54.2); Mean Corpuscular HGB Conc 30.9 GM/DL (32-36); Mean Corpuscular Hemoglobin 28 PG (27-34); Mean Corpuscular Volume 89.1 FL (87-102); Mean Platelet Volume 10.1 FL (9.6-12.0); Monocytes # 0.3 10*3/uL (0.11-0.8); Monocytes % 7.1 % (1.7-12.7); Neutrophils # 1.9 10*3/uL (1.4-7.4); Neutrophils % 40.5 % (38.7-73.9); Platelet Count 269 T/CUMM (130-400); Red Blood Count 4.32 MC/CUMM (3.8-5.5); Red Cell Distribution Width 23.2 % (9.3-17.3); White Blood Count 4.8 T/CUMM (4-12)
[2017-12-22 09:36] LABS: CKMB % 11.2 %
[2017-12-22 09:41] LABS: Troponin I 4.1 NG/ML (0.00-0.045)
[2017-12-22 09:47] LABS: Albumin 2.9 G/DL (3.4-5.0); Bilirubin,Total 0.5 MG/DL (0.2-1.0); Calcium 9.9 MG/DL (8.5-10.1); Osmolality,Calculated 280.1 MOS/KG (273-304); Potassium 4.1 MMOL/L (3.5-5.1); Total Protein 6.8 G/DL (6.4-8.3)
[2017-12-22 09:48] LABS: Hypochromasia 1+
[2017-12-22 09:49] LABS: Microcytosis 1+; Polychromasia Few
[2017-12-22 10:20] LABS: Risk Ratio 5.1; VLDL CHOLESTEROL 35.4 MG/DL
[2017-12-22] MEDS ORDERED: MAGNESIUM SULF RIDER 2 GM in PREMIX 1 EACH IV ONE (10:54)
[2017-12-22] MEDS: CYANOCOBALAMIN 1000 MCG/1 ML VIAL IM SCH (13:31)
[2017-12-22] MEDS ORDERED: diphenhydrAMINE 50 MG/1 ML VIAL IV ONE (13:41)
[2017-12-22] MEDS: TOBRAMYCIN/DEXAMETHASONE 0.3%-0.1% OPH SUSP 2.5 ML BOTTLE BOTH EYES SCH ×2 (17:47→23:32)
[2017-12-22] MEDS: ROSUVASTATIN 20 MG TABLET PO SCH (21:42)
[2017-12-22] MEDS: MELATONIN 3 MG TABLET PO SCH (21:43)
[2017-12-22] MEDS: traZODone 50 MG TABLET PO SCH (21:43)
[2017-12-23] MEDS: CIPROFLOXACIN 0.3% OPH SOLN 2.5 ML BOTTLE RIGHT EYE SCH ×6 (01:19→23:07)
[2017-12-23] MEDS: TOBRAMYCIN/DEXAMETHASONE 0.3%-0.1% OPH SUSP 2.5 ML BOTTLE BOTH EYES SCH ×4 (06:25→23:07)
[2017-12-23] MEDS: VANCOMYCIN 50 MG/ML 60 ML/BOTTLE PO SCH ×3 (06:32→19:20)
[2017-12-23] MEDS: SODIUM CHLOR 0.9% KCL 20 MEQ 20 MEQ/1,000 ML BAG IV SCH ×4 (07:30→22:00)
[2017-12-23 07:41] LABS: Basophils % 0.8 % (0.0-0.8); Eosinophils # 0.1 10*3/uL (0.0-0.87); Eosinophils % 3.7 % (0.00-10.9); Hematocrit 31.6 VOL% (35.7-47.0); Hemoglobin 10.2 GM/DL (12.0-16.0); Immature Granulocytes % 0.3 %; Immature Granulocytes Absolute 0.01 #; Lymphocytes # 1.7 10*3/uL (1.4-4.0); Lymphocytes % 44.3 % (21.3-54.2); Mean Corpuscular HGB Conc 32.3 GM/DL (32-36); Mean Corpuscular Hemoglobin 29 PG (27-34); Mean Corpuscular Volume 88.3 FL (87-102); Mean Platelet Volume 9.4 FL (9.6-12.0); Monocytes # 0.2 10*3/uL (0.11-0.8); Monocytes % 6.3 % (1.7-12.7); Neutrophils # 1.7 10*3/uL (1.4-7.4); Neutrophils % 44.6 % (38.7-73.9); Platelet Count 238 T/CUMM (130-400); Red Blood Count 3.58 MC/CUMM (3.8-5.5); Red Cell Distribution Width 23.7 % (9.3-17.3); White Blood Count 3.8 T/CUMM (4-12)
[2017-12-23 07:56] LABS: Calcium 8.7 MG/DL (8.5-10.1); Osmolality,Calculated 273.5 MOS/KG (273-304); Potassium 4.1 MMOL/L (3.5-5.1)
[2017-12-23 07:58] LABS: Platelet Estimate Normal
[2017-12-23 07:59] LABS: Anisocytosis 1+
[2017-12-23] MEDS ORDERED: LISINOPRIL 10 MG TABLET PO SCH (09:00)
[2017-12-23] MEDS: SUCRALFATE 1 GM/10 ML UDCUP PO SCH ×4 (09:17→20:41)
[2017-12-23] MEDS: PROCHLORPERAZINE 10 MG TABLET PO SCH ×3 (09:18→20:40)
[2017-12-23] MEDS: ASPIRIN EC 81 MG TABLET PO SCH (09:18)
[2017-12-23] MEDS: LACTOBACILLUS ACIDOPHILUS/BULGARICUS CAPLET PO SCH (09:18)
[2017-12-23] MEDS: METOPROLOL TARTRATE 50 MG TABLET PO SCH ×2 (09:18→20:42)
[2017-12-23] MEDS: POTASSIUM CHLORIDE 20 MEQ PACK PO SCH (09:19)
[2017-12-23] MEDS: LISINOPRIL 10 MG TABLET PO SCH (09:26)
[2017-12-23] MEDS: PANTOPRAZOLE 40 MG TABLET PO SCH ×2 (09:26→20:41)
[2017-12-23] MEDS: CYANOCOBALAMIN 1000 MCG/1 ML VIAL IM SCH (09:26)
[2017-12-23] MEDS: ERYTHROMYCIN 0.5% OPHT OINT 3.5 GM TUBE BOTH EYES SCH ×3 (09:35→20:41)
[2017-12-23] MEDS: diphenhydrAMINE CAP 25 MG CAPSULE PO PRN ×2 (12:05→23:07)
[2017-12-23] MEDS: MORPHINE 4 MG/1 ML VIAL IV PRN (12:05)
[2017-12-23] MEDS ORDERED: diphenhydrAMINE 50 MG/1 ML VIAL IV ONE (15:02)
[2017-12-23] MEDS: ROSUVASTATIN 20 MG TABLET PO SCH (20:41)
[2017-12-23] MEDS: traZODone 50 MG TABLET PO SCH (20:42)
[2017-12-23] MEDS: MELATONIN 3 MG TABLET PO SCH (20:42)
[2017-12-24] MEDS: VANCOMYCIN 50 MG/ML 60 ML/BOTTLE PO SCH ×4 (00:55→18:26)
[2017-12-24] MEDS ORDERED: diphenhydrAMINE 50 MG/1 ML VIAL IV ONE (01:15)
[2017-12-24] MEDS ORDERED: HydrOXYzine PAMOATE 50 MG CAPSULE PO ONE (01:45)
[2017-12-24] MEDS: CIPROFLOXACIN 0.3% OPH SOLN 2.5 ML BOTTLE RIGHT EYE SCH ×4 (02:03→13:36)
[2017-12-24] MEDS: TOBRAMYCIN/DEXAMETHASONE 0.3%-0.1% OPH SUSP 2.5 ML BOTTLE BOTH EYES SCH ×3 (06:15→18:26)
[2017-12-24] MEDS: SUCRALFATE 1 GM/10 ML UDCUP PO SCH ×4 (09:26→20:49)
[2017-12-24] MEDS: ASPIRIN EC 81 MG TABLET PO SCH (09:26)
[2017-12-24] MEDS: LACTOBACILLUS ACIDOPHILUS/BULGARICUS CAPLET PO SCH (09:26)
[2017-12-24] MEDS: PANTOPRAZOLE 40 MG TABLET PO SCH ×2 (09:27→20:49)
[2017-12-24] MEDS: POTASSIUM CHLORIDE 20 MEQ PACK PO SCH (09:27)
[2017-12-24] MEDS: LISINOPRIL 10 MG TABLET PO SCH (09:27)
[2017-12-24] MEDS: METOPROLOL TARTRATE 50 MG TABLET PO SCH ×2 (09:27→20:49)
[2017-12-24] MEDS: ERYTHROMYCIN 0.5% OPHT OINT 3.5 GM TUBE BOTH EYES SCH ×3 (09:27→20:49)
[2017-12-24] MEDS: CYANOCOBALAMIN 1000 MCG/1 ML VIAL IM SCH (09:27)
[2017-12-24] MEDS: PROCHLORPERAZINE 10 MG TABLET PO SCH ×3 (09:28→20:49)
[2017-12-24] MEDS: traZODone 50 MG TABLET PO SCH (20:49)
[2017-12-24] MEDS: MELATONIN 3 MG TABLET PO SCH (20:49)
[2017-12-24] MEDS: diphenhydrAMINE CAP 25 MG CAPSULE PO PRN (20:49)
[2017-12-24] MEDS: ROSUVASTATIN 20 MG TABLET PO SCH (20:49)
[2017-12-24] MEDS: MORPHINE 4 MG/1 ML VIAL IV PRN (21:57)
[2017-12-25] MEDS: VANCOMYCIN 50 MG/ML 60 ML/BOTTLE PO SCH ×5 (00:38→23:14)
[2017-12-25] MEDS: TOBRAMYCIN/DEXAMETHASONE 0.3%-0.1% OPH SUSP 2.5 ML BOTTLE BOTH EYES SCH ×5 (00:38→23:14)
[2017-12-25] MEDS: SODIUM CHLOR 0.9% KCL 20 MEQ 20 MEQ/1,000 ML BAG IV SCH ×2 (01:07→09:58)
[2017-12-25] MEDS ORDERED: CHOLESTYRAMINE 4 GM PACK PO SCH (09:00)
[2017-12-25] MEDS: ASPIRIN EC 81 MG TABLET PO SCH (09:14)
[2017-12-25] MEDS: LACTOBACILLUS ACIDOPHILUS/BULGARICUS CAPLET PO SCH (09:14)
[2017-12-25] MEDS: SUCRALFATE 1 GM/10 ML UDCUP PO SCH ×4 (09:14→20:25)
[2017-12-25] MEDS: ERYTHROMYCIN 0.5% OPHT OINT 3.5 GM TUBE BOTH EYES SCH ×3 (09:15→20:25)
[2017-12-25] MEDS: PROCHLORPERAZINE 10 MG TABLET PO SCH ×2 (09:15→15:40)
[2017-12-25] MEDS: POTASSIUM CHLORIDE 20 MEQ PACK PO SCH (09:15)
[2017-12-25] MEDS: LISINOPRIL 10 MG TABLET PO SCH (09:15)
[2017-12-25] MEDS: PANTOPRAZOLE 40 MG TABLET PO SCH ×2 (09:15→20:25)
[2017-12-25] MEDS: METOPROLOL TARTRATE 50 MG TABLET PO SCH ×2 (09:15→20:25)
[2017-12-25] MEDS: ONDANSETRON 4 MG/2 ML VIAL IV PRN (09:44)
[2017-12-25] MEDS ORDERED: FLUCONAZOLE 150 MG TABLET PO ONE (16:39)
[2017-12-25] MEDS ORDERED: PROCHLORPERAZINE 10 MG TABLET PO PRN (17:12)
[2017-12-25] MEDS: PARoxetine 20 MG TABLET PO SCH (18:05)
[2017-12-25] MEDS: traZODone 50 MG TABLET PO SCH (20:25)
[2017-12-25] MEDS: ROSUVASTATIN 20 MG TABLET PO SCH (20:25)
[2017-12-25] MEDS: MORPHINE 4 MG/1 ML VIAL IV PRN (20:25)
[2017-12-25] MEDS: MELATONIN 3 MG TABLET PO SCH (20:25)
[2017-12-25] MEDS ORDERED: cloNIDine 0.1 MG TABLET PO ONE (20:51)
[2017-12-26] MEDS: SODIUM CHLOR 0.9% KCL 20 MEQ 20 MEQ/1,000 ML BAG IV SCH ×3 (01:42→17:56)
[2017-12-26 03:59] LABS: Basophils % 0.4 % (0.0-0.8); Eosinophils # 0.1 10*3/uL (0.0-0.87); Eosinophils % 2.5 % (0.00-10.9); Hematocrit 31.4 VOL% (35.7-47.0); Hemoglobin 9.6 GM/DL (12.0-16.0); Immature Granulocytes % 0.4 %; Immature Granulocytes Absolute 0.02 #; Lymphocytes % 38.1 % (21.3-54.2); Mean Corpuscular HGB Conc 30.6 GM/DL (32-36); Mean Corpuscular Hemoglobin 28 PG (27-34); Mean Platelet Volume 9.6 FL (9.6-12.0); Monocytes # 0.3 10*3/uL (0.11-0.8); Monocytes % 6.5 % (1.7-12.7); Neutrophils # 2.8 10*3/uL (1.4-7.4); Neutrophils % 52.1 % (38.7-73.9); Platelet Count 253 T/CUMM (130-400); Red Blood Count 3.45 MC/CUMM (3.8-5.5); Red Cell Distribution Width 23.3 % (9.3-17.3); White Blood Count 5.3 T/CUMM (4-12)
[2017-12-26 04:25] LABS: Albumin 2.5 G/DL (3.4-5.0); Bilirubin,Total 0.5 MG/DL (0.2-1.0); Calcium 8.6 MG/DL (8.5-10.1); Potassium 4.1 MMOL/L (3.5-5.1); Total Protein 5.6 G/DL (6.4-8.3)
[2017-12-26] MEDS: VANCOMYCIN 50 MG/ML 60 ML/BOTTLE PO SCH ×3 (05:07→17:56)
[2017-12-26] MEDS: TOBRAMYCIN/DEXAMETHASONE 0.3%-0.1% OPH SUSP 2.5 ML BOTTLE BOTH EYES SCH ×3 (05:07→17:56)
[2017-12-26] MEDS: SUCRALFATE 1 GM/10 ML UDCUP PO SCH ×4 (08:42→21:11)
[2017-12-26] MEDS: POTASSIUM CHLORIDE 20 MEQ PACK PO SCH (08:44)
[2017-12-26] MEDS: CHOLESTYRAMINE 4 GM PACK PO SCH ×2 (08:44→21:11)
[2017-12-26] MEDS: PANTOPRAZOLE 40 MG TABLET PO SCH ×2 (08:49→21:10)
[2017-12-26] MEDS: ASPIRIN EC 81 MG TABLET PO SCH (08:49)
[2017-12-26] MEDS: LACTOBACILLUS ACIDOPHILUS/BULGARICUS CAPLET PO SCH (08:49)
[2017-12-26] MEDS: PARoxetine 20 MG TABLET PO SCH (08:49)
[2017-12-26] MEDS: METOPROLOL TARTRATE 50 MG TABLET PO SCH ×2 (09:01→21:12)
[2017-12-26] MEDS: LISINOPRIL 10 MG TABLET PO SCH (09:01)
[2017-12-26] MEDS: ERYTHROMYCIN 0.5% OPHT OINT 3.5 GM TUBE BOTH EYES SCH ×3 (09:02→21:12)
[2017-12-26] MEDS: ROSUVASTATIN 20 MG TABLET PO SCH (21:10)
[2017-12-26] MEDS: traZODone 50 MG TABLET PO SCH (21:10)
[2017-12-26] MEDS: MELATONIN 3 MG TABLET PO SCH (21:10)
[2017-12-26] MEDS: ONDANSETRON 4 MG/2 ML VIAL IV PRN (21:13)
[2017-12-26] MEDS: MORPHINE 4 MG/1 ML VIAL IV PRN (21:14)
[2017-12-27] MEDS: VANCOMYCIN 50 MG/ML 60 ML/BOTTLE PO SCH ×5 (00:54→23:43)
[2017-12-27] MEDS: TOBRAMYCIN/DEXAMETHASONE 0.3%-0.1% OPH SUSP 2.5 ML BOTTLE BOTH EYES SCH ×5 (00:54→23:43)
[2017-12-27 05:59] LABS: Basophils % 0.5 % (0.0-0.8); Eosinophils # 0.1 10*3/uL (0.0-0.87); Eosinophils % 2.3 % (0.00-10.9); Hematocrit 33.3 VOL% (35.7-47.0); Hemoglobin 10.2 GM/DL (12.0-16.0); Immature Granulocytes % 0.3 %; Immature Granulocytes Absolute 0.02 #; Lymphocytes # 2.4 10*3/uL (1.4-4.0); Mean Corpuscular HGB Conc 30.6 GM/DL (32-36); Mean Corpuscular Hemoglobin 28 PG (27-34); Mean Platelet Volume 9.5 FL (9.6-12.0); Monocytes # 0.4 10*3/uL (0.11-0.8); Monocytes % 6.3 % (1.7-12.7); Neutrophils # 3.2 10*3/uL (1.4-7.4); Neutrophils % 51.6 % (38.7-73.9); Platelet Count 258 T/CUMM (130-400); Red Blood Count 3.66 MC/CUMM (3.8-5.5); White Blood Count 6.2 T/CUMM (4-12)
[2017-12-27 06:17] LABS: Calcium 8.5 MG/DL (8.5-10.1); Potassium 4.4 MMOL/L (3.5-5.1)
[2017-12-27 06:19] LABS: Hypochromasia 1+; Microcytosis 1+
[2017-12-27 06:20] LABS: Platelet Estimate Normal
[2017-12-27] MEDS: SUCRALFATE 1 GM/10 ML UDCUP PO SCH ×4 (08:30→20:04)
[2017-12-27] MEDS: SODIUM CHLOR 0.9% KCL 20 MEQ 20 MEQ/1,000 ML BAG IV SCH ×2 (08:30→21:50)
[2017-12-27] MEDS: MORPHINE 4 MG/1 ML VIAL IV PRN ×2 (09:51→18:37)
[2017-12-27] MEDS: LISINOPRIL 10 MG TABLET PO SCH (09:55)
[2017-12-27] MEDS: ERYTHROMYCIN 0.5% OPHT OINT 3.5 GM TUBE BOTH EYES SCH ×3 (09:55→20:04)
[2017-12-27] MEDS: METOPROLOL TARTRATE 50 MG TABLET PO SCH ×2 (09:55→20:04)
[2017-12-27] MEDS: LACTOBACILLUS ACIDOPHILUS/BULGARICUS CAPLET PO SCH (09:57)
[2017-12-27] MEDS: PANTOPRAZOLE 40 MG TABLET PO SCH ×2 (09:57→20:03)
[2017-12-27] MEDS: PARoxetine 20 MG TABLET PO SCH (09:57)
[2017-12-27] MEDS: ASPIRIN EC 81 MG TABLET PO SCH (09:57)
[2017-12-27] MEDS: CHOLESTYRAMINE 4 GM PACK PO SCH ×2 (09:58→20:03)
[2017-12-27] MEDS: POTASSIUM CHLORIDE 20 MEQ PACK PO SCH (09:58)
[2017-12-27] MEDS: ONDANSETRON 4 MG/2 ML VIAL IV PRN (14:16)
[2017-12-27] MEDS: ROSUVASTATIN 20 MG TABLET PO SCH (20:03)
[2017-12-27] MEDS: traZODone 50 MG TABLET PO SCH (20:03)
[2017-12-27] MEDS: MELATONIN 3 MG TABLET PO SCH (20:10)
[2017-12-28] MEDS: TOBRAMYCIN/DEXAMETHASONE 0.3%-0.1% OPH SUSP 2.5 ML BOTTLE BOTH EYES SCH ×3 (05:37→18:09)
[2017-12-28] MEDS: VANCOMYCIN 50 MG/ML 60 ML/BOTTLE PO SCH ×3 (05:37→18:09)
[2017-12-28 05:46] LABS: Basophils % 0.6 % (0.0-0.8); Eosinophils # 0.1 10*3/uL (0.0-0.87); Eosinophils % 2.1 % (0.00-10.9); Hematocrit 32.7 VOL% (35.7-47.0); Hemoglobin 10.5 GM/DL (12.0-16.0); Immature Granulocytes % 0.2 %; Immature Granulocytes Absolute 0.01 #; Lymphocytes # 1.7 10*3/uL (1.4-4.0); Lymphocytes % 35.5 % (21.3-54.2); Mean Corpuscular HGB Conc 32.1 GM/DL (32-36); Mean Corpuscular Hemoglobin 29 PG (27-34); Mean Corpuscular Volume 89.8 FL (87-102); Mean Platelet Volume 9.8 FL (9.6-12.0); Monocytes # 0.4 10*3/uL (0.11-0.8); Monocytes % 7.6 % (1.7-12.7); Neutrophils # 2.6 10*3/uL (1.4-7.4); Platelet Count 261 T/CUMM (130-400); Red Blood Count 3.64 MC/CUMM (3.8-5.5); Red Cell Distribution Width 22.8 % (9.3-17.3); White Blood Count 4.7 T/CUMM (4-12)
[2017-12-28 06:08] LABS: Hypochromasia Slight; Platelet Estimate Normal; Polychromasia Few
[2017-12-28 06:16] LABS: Osmolality,Calculated 279.1 MOS/KG (273-304); Potassium 4.3 MMOL/L (3.5-5.1)
[2017-12-28] MEDS: SUCRALFATE 1 GM/10 ML UDCUP PO SCH ×4 (09:48→21:33)
[2017-12-28] MEDS: POTASSIUM CHLORIDE 20 MEQ PACK PO SCH (09:49)
[2017-12-28] MEDS: CHOLESTYRAMINE 4 GM PACK PO SCH ×2 (09:49→21:33)
[2017-12-28] MEDS: LACTOBACILLUS ACIDOPHILUS/BULGARICUS CAPLET PO SCH (09:50)
[2017-12-28] MEDS: METOPROLOL TARTRATE 50 MG TABLET PO SCH ×2 (09:50→21:33)
[2017-12-28] MEDS: PANTOPRAZOLE 40 MG TABLET PO SCH ×2 (09:50→21:33)
[2017-12-28] MEDS: LISINOPRIL 10 MG TABLET PO SCH (09:51)
[2017-12-28] MEDS: PARoxetine 20 MG TABLET PO SCH (09:51)
[2017-12-28] MEDS: ASPIRIN EC 81 MG TABLET PO SCH (09:51)
[2017-12-28] MEDS: ERYTHROMYCIN 0.5% OPHT OINT 3.5 GM TUBE BOTH EYES SCH ×3 (09:52→21:33)
[2017-12-28] MEDS: SODIUM CHLOR 0.9% KCL 20 MEQ 20 MEQ/1,000 ML BAG IV SCH (11:15)
[2017-12-28] MEDS: MORPHINE 4 MG/1 ML VIAL IV PRN ×2 (12:29→21:34)
[2017-12-28] MEDS: ROSUVASTATIN 20 MG TABLET PO SCH (21:33)
[2017-12-28] MEDS: traZODone 50 MG TABLET PO SCH (21:33)
[2017-12-28] MEDS: MELATONIN 3 MG TABLET PO SCH (21:33)
[2017-12-29] MEDS: VANCOMYCIN 50 MG/ML 60 ML/BOTTLE PO SCH ×3 (00:09→12:15)
[2017-12-29] MEDS: TOBRAMYCIN/DEXAMETHASONE 0.3%-0.1% OPH SUSP 2.5 ML BOTTLE BOTH EYES SCH ×3 (00:09→12:16)
[2017-12-29] MEDS: SODIUM CHLOR 0.9% KCL 20 MEQ 20 MEQ/1,000 ML BAG IV SCH (00:46)
[2017-12-29 04:46] LABS: Basophils % 0.4 % (0.0-0.8); Eosinophils # 0.1 10*3/uL (0.0-0.87); Eosinophils % 2.6 % (0.00-10.9); Hematocrit 32.5 VOL% (35.7-47.0); Hemoglobin 10.3 GM/DL (12.0-16.0); Immature Granulocytes % 0.2 %; Immature Granulocytes Absolute 0.01 #; Lymphocytes # 1.9 10*3/uL (1.4-4.0); Lymphocytes % 40.9 % (21.3-54.2); Mean Corpuscular HGB Conc 31.7 GM/DL (32-36); Mean Corpuscular Hemoglobin 29 PG (27-34); Mean Platelet Volume 9.6 FL (9.6-12.0); Monocytes # 0.4 10*3/uL (0.11-0.8); Monocytes % 8.3 % (1.7-12.7); Neutrophils # 2.2 10*3/uL (1.4-7.4); Neutrophils % 47.6 % (38.7-73.9); Platelet Count 259 T/CUMM (130-400); Red Blood Count 3.57 MC/CUMM (3.8-5.5); Red Cell Distribution Width 22.8 % (9.3-17.3); White Blood Count 4.6 T/CUMM (4-12)
[2017-12-29 05:06] LABS: Calcium 9.1 MG/DL (8.5-10.1); Potassium 4.4 MMOL/L (3.5-5.1)
[2017-12-29 05:21] LABS: Platelet Estimate Adequate; Polychromasia Few
[2017-12-29] MEDS: MAGNESIUM SULF RIDER 2 GM in PREMIX 1 EACH IV PRN (09:26)
[2017-12-29] MEDS: SUCRALFATE 1 GM/10 ML UDCUP PO SCH ×2 (09:30→12:14)
[2017-12-29] MEDS: CHOLESTYRAMINE 4 GM PACK PO SCH (09:30)
[2017-12-29] MEDS: POTASSIUM CHLORIDE 20 MEQ PACK PO SCH (09:30)
[2017-12-29] MEDS: PANTOPRAZOLE 40 MG TABLET PO SCH (09:31)
[2017-12-29] MEDS: LACTOBACILLUS ACIDOPHILUS/BULGARICUS CAPLET PO SCH (09:31)
[2017-12-29] MEDS: ASPIRIN EC 81 MG TABLET PO SCH (09:31)
[2017-12-29] MEDS: PARoxetine 20 MG TABLET PO SCH (09:32)
[2017-12-29] MEDS: METOPROLOL TARTRATE 50 MG TABLET PO SCH (09:32)
[2017-12-29] MEDS: ERYTHROMYCIN 0.5% OPHT OINT 3.5 GM TUBE BOTH EYES SCH (09:33)
[2017-12-29] MEDS: LISINOPRIL 10 MG TABLET PO SCH (09:34)
[2017-12-29] MEDS: MORPHINE 4 MG/1 ML VIAL IV PRN (09:40)
[2017-12-29 11:12] VITALS: BP 147/66
== END 2017-12-29 14:00 | disposition swing bed (61) | DRG 391 ==
LOC: EDUNIT# → N.ED 17:39 → SUATTDRO 19:22 → N.EDINP 19:22 → N.3E 20:23
PROVIDERS: ADMIT Internal Medicine; ATTEND Hospitalist

== ENCOUNTER 2018-01-22 00:42 | Inpatient (IN) ==
[2018-01-22] MEDS ORDERED: SODIUM CHLORIDE 0.9% 1,000 ML IV STA ×2 (01:35→05:17)
[2018-01-22 02:30] LABS: Basophils % 0.7 % (0.0-0.8); Eosinophils # 0.1 10*3/uL (0.0-0.87); Eosinophils % 1.7 % (0.00-10.9); Hematocrit 38.4 VOL% (35.7-47.0); Hemoglobin 12.5 GM/DL (12.0-16.0); Immature Granulocytes % 0.2 %; Immature Granulocytes Absolute 0.01 #; Lymphocytes # 1.5 10*3/uL (1.4-4.0); Lymphocytes % 36.8 % (21.3-54.2); Mean Corpuscular HGB Conc 32.6 GM/DL (32-36); Mean Corpuscular Hemoglobin 31 PG (27-34); Mean Corpuscular Volume 94.3 FL (87-102); Mean Platelet Volume 9.8 FL (9.6-12.0); Monocytes # 0.3 10*3/uL (0.11-0.8); Monocytes % 7.9 % (1.7-12.7); Neutrophils # 2.2 10*3/uL (1.4-7.4); Neutrophils % 52.7 % (38.7-73.9); Platelet Count 175 T/CUMM (130-400); Red Blood Count 4.07 MC/CUMM (3.8-5.5); Red Cell Distribution Width 17.5 % (9.3-17.3); White Blood Count 4.2 T/CUMM (4-12)
[2018-01-22 02:51] LABS: Alanine Aminotransferase 26 U/L (13-56); Albumin 3.6 G/DL (3.4-5.0); Alkaline Phosphatase 74 U/L (45-117); Aspartate Amino Transferase 28 U/L (0-37); Bilirubin,Total < 0.39 MG/DL (0.2-1.0); Blood Urea Nitrogen 13 MG/DL (7-18); Calcium 9.7 MG/DL (8.5-10.1); Glucose 110 MG/DL (74-106); Lactic Acid 1.2 MMOL/L (0.4-2.0); Osmolality,Calculated 275.7 MOS/KG (273-304); Potassium 4.8 MMOL/L (3.5-5.1); Sodium 138 MMOL/L (136-145); Total Protein 7.1 G/DL (6.4-8.3)
[2018-01-22 03:43] LABS: Apearance,Urine Slightly Hazy (Clear); Bacteria,Urine Occasional /HPF (Few); Bilirubin,Urine Negative (Negative); Blood, Urine Negative (Negative); Glucose,Urine (UA) Negative (Negative); Hyaline Casts,Urine 13 /LPF (0-3); Ketones,Urine Negative (Negative); Mucus,Urine Occasional /LPF (Occasional); Nitrite,Urine Negative (Negative); Protein,Urine Negative; RBC,Urine 1 /HPF (0-4); Squamous Epithelial Cell,Urine Occasional /HPF (0-10); Urine Color Yellow (Yellow); Urine Specific Gravity 1.005 (1.001-1.035); Urine Urobilinogen < 2.0 EU/DL (0.2-1.0); WBC,Urine 13 /HPF (0-6)
[2018-01-22] MEDS ORDERED: SULFAMETHOX/TRIMETHOPRIM 800-160 MG TABLET PO STA (04:11)
[2018-01-22 05:39] LABS: ABG Base Excess -4.8 MMOL/L (-2.5-2.5); ABG HCO3 20.4 MMOL/L (20-26); ABG Oxygen Saturation 96.8 % (95-100); ABG PCO2 40.8 MM HG (35-48); ABG PH 7.319 (7.35-7.45); ABG PO2 91.9 MM HG (80-95); Allen Test Positive
[2018-01-22] MEDS ORDERED: cefTRIAXone 250 MG VIAL IV STA (05:45)
[2018-01-22] MEDS ORDERED: SODIUM CHLORIDE 0.9% 1,000 ML IV SCH (07:48)
[2018-01-22] MEDS ORDERED: cefTRIAXone 1,000 MG VIAL IM SCH (07:48)
[2018-01-22] MEDS ORDERED: DEXTROSE 50% 25 GM/50 ML VIAL IV PRN ×2 (07:48→15:18)
[2018-01-22] MEDS ORDERED: GLUCAGON 1 MG VIAL IM PRN (07:48)
[2018-01-22 09:14] LABS: CKMB % 4.9 %; Thyroid Stimulating Hormone 1.73 uIU/ml (0.358-3.74)
[2018-01-22 09:21] LABS: Troponin I 0.081 NG/ML (0.00-0.045)
[2018-01-22 14:13] LABS: Troponin I 0.077 NG/ML (0.00-0.045)
[2018-01-22] MEDS ORDERED: ONDANSETRON 4 MG/2 ML VIAL IV PRN (15:58)
[2018-01-22] MEDS: traMADol 50 MG TABLET PO PRN (16:08)
[2018-01-22] MEDS: SUCRALFATE 1 GM/10 ML UDCUP PO SCH ×2 (16:10→21:38)
[2018-01-22] MEDS: TOBRAMYCIN/DEXAMETHASONE 0.3%-0.1% OPH SUSP 2.5 ML BOTTLE BOTH EYES SCH (17:16)
[2018-01-22 20:09] LABS: Troponin I 0.068 NG/ML (0.00-0.045)
[2018-01-22] MEDS: PANTOPRAZOLE 40 MG TABLET PO SCH (21:38)
[2018-01-22] MEDS: ROSUVASTATIN 20 MG TABLET PO SCH (21:38)
[2018-01-22] MEDS: CHOLESTYRAMINE 4 GM PACK PO SCH (21:47)
[2018-01-22] MEDS: ERYTHROMYCIN 0.5% OPHT OINT 3.5 GM TUBE BOTH EYES SCH (21:47)
[2018-01-23] MEDS: TOBRAMYCIN/DEXAMETHASONE 0.3%-0.1% OPH SUSP 2.5 ML BOTTLE BOTH EYES SCH ×4 (01:05→17:23)
[2018-01-23] MEDS: traMADol 50 MG TABLET PO PRN ×3 (02:36→12:43)
[2018-01-23 05:19] LABS: Basophils % 0.5 % (0.0-0.8); Eosinophils # 0.1 10*3/uL (0.0-0.87); Eosinophils % 2.5 % (0.00-10.9); Hematocrit 33.2 VOL% (35.7-47.0); Hemoglobin 10.4 GM/DL (12.0-16.0); Immature Granulocytes % 0.2 %; Immature Granulocytes Absolute 0.01 #; Lymphocytes # 1.6 10*3/uL (1.4-4.0); Lymphocytes % 35.6 % (21.3-54.2); Mean Corpuscular HGB Conc 31.3 GM/DL (32-36); Mean Corpuscular Hemoglobin 30 PG (27-34); Mean Corpuscular Volume 95.7 FL (87-102); Mean Platelet Volume 10.5 FL (9.6-12.0); Monocytes # 0.3 10*3/uL (0.11-0.8); Monocytes % 7.7 % (1.7-12.7); Neutrophils # 2.4 10*3/uL (1.4-7.4); Neutrophils % 53.5 % (38.7-73.9); Platelet Count 143 T/CUMM (130-400); Red Blood Count 3.47 MC/CUMM (3.8-5.5); Red Cell Distribution Width 17.5 % (9.3-17.3); White Blood Count 4.4 T/CUMM (4-12)
[2018-01-23 05:45] LABS: Bilirubin,Total 0.4 MG/DL (0.2-1.0); Calcium 9.2 MG/DL (8.5-10.1); Osmolality,Calculated 279.1 MOS/KG (273-304)
[2018-01-23] MEDS: PANTOPRAZOLE 40 MG TABLET PO SCH ×2 (09:05→21:04)
[2018-01-23] MEDS: SUCRALFATE 1 GM/10 ML UDCUP PO SCH ×4 (09:06→21:04)
[2018-01-23] MEDS: ASPIRIN EC 81 MG TABLET PO SCH (09:06)
[2018-01-23] MEDS: cefTRIAXone 1,000 MG in SYRINGE 1 EACH IV SCH (09:06)
[2018-01-23] MEDS: CHOLESTYRAMINE 4 GM PACK PO SCH ×2 (09:09→21:04)
[2018-01-23] MEDS: ERYTHROMYCIN 0.5% OPHT OINT 3.5 GM TUBE BOTH EYES SCH ×3 (09:10→21:04)
[2018-01-23] MEDS: MELOXICAM 7.5 MG TABLET PO SCH (17:26)
[2018-01-23] MEDS: ROSUVASTATIN 20 MG TABLET PO SCH (21:04)
[2018-01-24] MEDS: TOBRAMYCIN/DEXAMETHASONE 0.3%-0.1% OPH SUSP 2.5 ML BOTTLE BOTH EYES SCH ×4 (00:02→18:05)
[2018-01-24 08:09] LABS: Basophils % 0.4 % (0.0-0.8); Eosinophils # 0.2 10*3/uL (0.0-0.87); Eosinophils % 4.1 % (0.00-10.9); Hematocrit 36.5 VOL% (35.7-47.0); Hemoglobin 11.7 GM/DL (12.0-16.0); Immature Granulocytes % 0.2 %; Immature Granulocytes Absolute 0.01 #; Lymphocytes # 1.2 10*3/uL (1.4-4.0); Lymphocytes % 23.6 % (21.3-54.2); Mean Corpuscular HGB Conc 32.1 GM/DL (32-36); Mean Corpuscular Hemoglobin 31 PG (27-34); Mean Corpuscular Volume 95.8 FL (87-102); Monocytes # 0.3 10*3/uL (0.11-0.8); Monocytes % 5.1 % (1.7-12.7); Neutrophils # 3.2 10*3/uL (1.4-7.4); Neutrophils % 66.6 % (38.7-73.9); Platelet Count 136 T/CUMM (130-400); Red Blood Count 3.81 MC/CUMM (3.8-5.5); White Blood Count 4.9 T/CUMM (4-12)
[2018-01-24 08:43] LABS: Calcium 9.4 MG/DL (8.5-10.1); Potassium 3.9 MMOL/L (3.5-5.1)
[2018-01-24] MEDS ORDERED: MAGNESIUM SULF RIDER 2 GM in PREMIX 1 EACH IV PRN (08:56)
[2018-01-24] MEDS ORDERED: MAGNESIUM SULF RIDER 4 GM in PREMIX 1 EACH IV PRN (08:56)
[2018-01-24] MEDS: ASPIRIN EC 81 MG TABLET PO SCH (09:24)
[2018-01-24] MEDS: ERYTHROMYCIN 0.5% OPHT OINT 3.5 GM TUBE BOTH EYES SCH ×3 (09:24→21:05)
[2018-01-24] MEDS: PANTOPRAZOLE 40 MG TABLET PO SCH ×2 (09:24→20:59)
[2018-01-24] MEDS: CHOLESTYRAMINE 4 GM PACK PO SCH ×2 (09:25→21:06)
[2018-01-24] MEDS: SUCRALFATE 1 GM/10 ML UDCUP PO SCH ×4 (09:25→21:05)
[2018-01-24] MEDS: cefTRIAXone 1,000 MG in SYRINGE 1 EACH IV SCH (09:26)
[2018-01-24] MEDS: ROSUVASTATIN 20 MG TABLET PO SCH (20:59)
[2018-01-25] MEDS: TOBRAMYCIN/DEXAMETHASONE 0.3%-0.1% OPH SUSP 2.5 ML BOTTLE BOTH EYES SCH ×4 (00:05→17:34)
[2018-01-25 04:16] LABS: Basophils % 0.5 % (0.0-0.8); Eosinophils # 0.2 10*3/uL (0.0-0.87); Eosinophils % 5.5 % (0.00-10.9); Hematocrit 34.1 VOL% (35.7-47.0); Hemoglobin 11.2 GM/DL (12.0-16.0); Immature Granulocytes % 0.2 %; Immature Granulocytes Absolute 0.01 #; Lymphocytes # 1.5 10*3/uL (1.4-4.0); Lymphocytes % 33.5 % (21.3-54.2); Mean Corpuscular HGB Conc 32.8 GM/DL (32-36); Mean Corpuscular Hemoglobin 31 PG (27-34); Mean Corpuscular Volume 93.7 FL (87-102); Monocytes # 0.3 10*3/uL (0.11-0.8); Monocytes % 7.5 % (1.7-12.7); Neutrophils # 2.3 10*3/uL (1.4-7.4); Neutrophils % 52.8 % (38.7-73.9); Platelet Count 110 T/CUMM (130-400); Red Blood Count 3.64 MC/CUMM (3.8-5.5); Red Cell Distribution Width 16.5 % (9.3-17.3); White Blood Count 4.4 T/CUMM (4-12)
[2018-01-25 04:36] LABS: Calcium 9.1 MG/DL (8.5-10.1); Osmolality,Calculated 275.4 MOS/KG (273-304); Potassium 3.9 MMOL/L (3.5-5.1)
[2018-01-25 04:47] LABS: Hypochromasia 1+; Platelet Estimate Decreased
[2018-01-25] MEDS: MELOXICAM 7.5 MG TABLET PO SCH (08:31)
[2018-01-25] MEDS: PANTOPRAZOLE 40 MG TABLET PO SCH ×2 (08:31→20:37)
[2018-01-25] MEDS: ASPIRIN EC 81 MG TABLET PO SCH (08:31)
[2018-01-25] MEDS: SUCRALFATE 1 GM/10 ML UDCUP PO SCH ×4 (08:32→20:37)
[2018-01-25] MEDS: CHOLESTYRAMINE 4 GM PACK PO SCH ×2 (08:32→20:36)
[2018-01-25] MEDS: ERYTHROMYCIN 0.5% OPHT OINT 3.5 GM TUBE BOTH EYES SCH ×3 (08:32→20:44)
[2018-01-25] MEDS: cefTRIAXone 1,000 MG in SYRINGE 1 EACH IV SCH (08:32)
[2018-01-25] MEDS ORDERED: NITROGLYCERIN SL 0.4 MG TABLET SL ONE (16:11)
[2018-01-25] MEDS ORDERED: MORPHINE 4 MG/1 ML VIAL IV ONE (16:14)
[2018-01-25] MEDS ORDERED: ALUM/MAG/SIMETH/LIDO VISC 1:1 30 ML BOTTLE PO ONE (16:14)
[2018-01-25] MEDS ORDERED: MORPHINE 4 MG/1 ML VIAL ONE (16:16)
[2018-01-25] MEDS: METOPROLOL TARTRATE 50 MG TABLET PO SCH (16:21)
[2018-01-25] MEDS: ROSUVASTATIN 20 MG TABLET PO SCH (20:36)
[2018-01-25] MEDS ORDERED: METOPROLOL TARTRATE 25 MG TABLET PO SCH (21:00)
[2018-01-25] MEDS ORDERED: METOPROLOL TARTRATE 50 MG TABLET PO SCH (21:00)
[2018-01-25] MEDS ORDERED: ZALEPLON 5 MG CAPSULE PO ONE (22:30)
[2018-01-26] MEDS: TOBRAMYCIN/DEXAMETHASONE 0.3%-0.1% OPH SUSP 2.5 ML BOTTLE BOTH EYES SCH ×5 (01:11→23:31)
[2018-01-26 05:02] LABS: Basophils % 0.8 % (0.0-0.8); Eosinophils # 0.2 10*3/uL (0.0-0.87); Eosinophils % 4.8 % (0.00-10.9); Hematocrit 33.9 VOL% (35.7-47.0); Hemoglobin 11.2 GM/DL (12.0-16.0); Immature Granulocytes % 0.3 %; Immature Granulocytes Absolute 0.01 #; Lymphocytes # 1.7 10*3/uL (1.4-4.0); Lymphocytes % 41.7 % (21.3-54.2); Mean Corpuscular Hemoglobin 31 PG (27-34); Mean Corpuscular Volume 93.4 FL (87-102); Mean Platelet Volume 10.5 FL (9.6-12.0); Monocytes # 0.3 10*3/uL (0.11-0.8); Monocytes % 7.3 % (1.7-12.7); Neutrophils # 1.8 10*3/uL (1.4-7.4); Neutrophils % 45.1 % (38.7-73.9); Platelet Count 158 T/CUMM (130-400); Red Blood Count 3.63 MC/CUMM (3.8-5.5); Red Cell Distribution Width 16.2 % (9.3-17.3)
[2018-01-26 05:19] LABS: Calcium 9.3 MG/DL (8.5-10.1); Osmolality,Calculated 280.1 MOS/KG (273-304); Potassium 3.7 MMOL/L (3.5-5.1)
[2018-01-26] MEDS: PANTOPRAZOLE 40 MG TABLET PO SCH ×2 (08:24→20:54)
[2018-01-26] MEDS: CHOLESTYRAMINE 4 GM PACK PO SCH ×2 (08:24→20:55)
[2018-01-26] MEDS: ASPIRIN EC 81 MG TABLET PO SCH (08:24)
[2018-01-26] MEDS: cefTRIAXone 1,000 MG in SYRINGE 1 EACH IV SCH (08:25)
[2018-01-26] MEDS: METOPROLOL TARTRATE 50 MG TABLET PO SCH ×2 (08:25→20:54)
[2018-01-26] MEDS: SUCRALFATE 1 GM/10 ML UDCUP PO SCH ×4 (08:25→20:55)
[2018-01-26] MEDS: ERYTHROMYCIN 0.5% OPHT OINT 3.5 GM TUBE BOTH EYES SCH ×3 (08:27→20:55)
[2018-01-26 10:27] LABS: Troponin I 0.017 NG/ML (0.00-0.045)
[2018-01-26] MEDS: ROSUVASTATIN 20 MG TABLET PO SCH (20:54)
[2018-01-26] MEDS: ZINC OXIDE PASTE 113 GM TUBE TOP SCH (20:55)
[2018-01-26] MEDS ORDERED: ZALEPLON 5 MG CAPSULE PO ONE (23:30)
[2018-01-27] MEDS: TOBRAMYCIN/DEXAMETHASONE 0.3%-0.1% OPH SUSP 2.5 ML BOTTLE BOTH EYES SCH (06:12)
[2018-01-27 07:47] VITALS: BP 141/88
[2018-01-27] MEDS: cefTRIAXone 1,000 MG in SYRINGE 1 EACH IV SCH (08:44)
[2018-01-27] MEDS: SUCRALFATE 1 GM/10 ML UDCUP PO SCH (08:44)
[2018-01-27] MEDS: CHOLESTYRAMINE 4 GM PACK PO SCH (08:44)
[2018-01-27] MEDS: METOPROLOL TARTRATE 50 MG TABLET PO SCH (08:44)
[2018-01-27] MEDS: ASPIRIN EC 81 MG TABLET PO SCH (08:44)
[2018-01-27] MEDS: PANTOPRAZOLE 40 MG TABLET PO SCH (08:44)
[2018-01-27] MEDS: MELOXICAM 7.5 MG TABLET PO SCH (08:44)
[2018-01-27] MEDS: ERYTHROMYCIN 0.5% OPHT OINT 3.5 GM TUBE BOTH EYES SCH (08:45)
[2018-01-27] MEDS: ZINC OXIDE PASTE 113 GM TUBE TOP SCH (08:47)
== END 2018-01-27 12:04 | disposition home health service (06) | DRG 689 ==
LOC: EDUNIT# → EDBD → N.ED 00:42 → SUATTDRO 06:40 → N.EDINP 06:40 → N.TELEN 07:18
PROVIDERS: ADMIT Internal Medicine; ATTEND Internal Medicine

== ENCOUNTER 2018-06-14 19:22 | Inpatient (IN) ==
[2018-06-14 22:27] LABS: Basophils % 0.5 % (0.0-0.8); Eosinophils # 0.1 10*3/uL (0.0-0.87); Eosinophils % 1.1 % (0.00-10.9); Hematocrit 39.8 VOL% (35.7-47.0); Hemoglobin 12.9 GM/DL (12.0-16.0); Immature Granulocytes % 0.4 %; Immature Granulocytes Absolute 0.02 #; Lymphocytes # 2.1 10*3/uL (1.4-4.0); Lymphocytes % 37.5 % (21.3-54.2); Mean Corpuscular HGB Conc 32.4 GM/DL (32-36); Mean Corpuscular Hemoglobin 32 PG (27-34); Monocytes # 0.5 10*3/uL (0.11-0.8); Monocytes % 8.7 % (1.7-12.7); Neutrophils # 2.8 10*3/uL (1.4-7.4); Neutrophils % 51.8 % (38.7-73.9); Platelet Count 148 T/CUMM (130-400); Red Blood Count 4.02 MC/CUMM (3.8-5.5); Red Cell Distribution Width 14.2 % (9.3-17.3); White Blood Count 5.5 T/CUMM (4-12)
[2018-06-14 23:05] LABS: Albumin 3.6 G/DL (3.4-5.0); Bilirubin,Total 0.5 MG/DL (0.2-1.0); Calcium 9.1 MG/DL (8.5-10.1); Osmolality,Calculated 282.1 MOS/KG (273-304); Total Protein 6.7 G/DL (6.4-8.3)
[2018-06-15] MEDS ORDERED: MORPHINE 4 MG/1 ML VIAL IV STA (00:29)
[2018-06-15] MEDS ORDERED: ONDANSETRON 4 MG/2 ML VIAL IV STA (00:29)
[2018-06-15] MEDS ORDERED: DICLOFENAC 1% GEL 100 GM TUBE TOP PRN (01:23)
[2018-06-15] MEDS: MORPHINE 4 MG/1 ML VIAL IV PRN ×3 (04:03→13:15)
[2018-06-15 07:00] LABS: Basophils % 0.4 % (0.0-0.8); Eosinophils # 0.1 10*3/uL (0.0-0.87); Hemoglobin 12.3 GM/DL (12.0-16.0); Immature Granulocytes % 0.2 %; Immature Granulocytes Absolute 0.01 #; Lymphocytes # 1.7 10*3/uL (1.4-4.0); Lymphocytes % 32.4 % (21.3-54.2); Mean Corpuscular HGB Conc 32.4 GM/DL (32-36); Mean Corpuscular Hemoglobin 32 PG (27-34); Mean Corpuscular Volume 99.5 FL (87-102); Mean Platelet Volume 10.3 FL (9.6-12.0); Monocytes # 0.4 10*3/uL (0.11-0.8); Monocytes % 8.6 % (1.7-12.7); Neutrophils # 2.9 10*3/uL (1.4-7.4); Neutrophils % 57.4 % (38.7-73.9); Platelet Count 136 T/CUMM (130-400); Red Blood Count 3.82 MC/CUMM (3.8-5.5); Red Cell Distribution Width 14.5 % (9.3-17.3); White Blood Count 5.1 T/CUMM (4-12)
[2018-06-15] MEDS: PANTOPRAZOLE 40 MG TABLET PO SCH (09:23)
[2018-06-15] MEDS: ASPIRIN EC 81 MG TABLET PO SCH (09:23)
[2018-06-15] MEDS ORDERED: traMADol 50 MG TABLET PO PRN (12:59)
[2018-06-15] MEDS: ONDANSETRON 4 MG/2 ML VIAL IV PRN (13:16)
[2018-06-15] MEDS ORDERED: diphenhydrAMINE CAP 25 MG CAPSULE PO PRN (18:07)
[2018-06-15] MEDS ORDERED: SODIUM CHLORIDE 0.9% 500 ML IV ONE (18:32)
[2018-06-16] MEDS: MORPHINE 4 MG/1 ML VIAL IV PRN ×3 (00:23→22:51)
[2018-06-16] MEDS ORDERED: oxyCODONE IR 5 MG TABLET PO PRN (07:45)
[2018-06-16] MEDS ORDERED: MORPHINE 4 MG/1 ML VIAL IV PRN (07:50)
[2018-06-16] MEDS: oxyCODONE IR 5 MG TABLET PO PRN ×2 (08:29→15:00)
[2018-06-16] MEDS: ASPIRIN EC 81 MG TABLET PO SCH (08:30)
[2018-06-16] MEDS: PANTOPRAZOLE 40 MG TABLET PO SCH (08:30)
[2018-06-17] MEDS: PANTOPRAZOLE 40 MG TABLET PO SCH (08:35)
[2018-06-17] MEDS: ASPIRIN EC 81 MG TABLET PO SCH (08:35)
[2018-06-17] MEDS: MORPHINE 4 MG/1 ML VIAL IV PRN ×3 (11:40→23:59)
[2018-06-17] MEDS: ONDANSETRON 4 MG/2 ML VIAL IV PRN (20:06)
[2018-06-18] MEDS: PANTOPRAZOLE 40 MG TABLET PO SCH (08:06)
[2018-06-18] MEDS: ASPIRIN EC 81 MG TABLET PO SCH (08:06)
[2018-06-18] MEDS: MORPHINE 4 MG/1 ML VIAL IV PRN ×2 (11:55→20:09)
[2018-06-19 08:10] VITALS: BP 133/77
[2018-06-19] MEDS: oxyCODONE IR 5 MG TABLET PO PRN (08:28)
[2018-06-19] MEDS: PANTOPRAZOLE 40 MG TABLET PO SCH (08:28)
[2018-06-19] MEDS: ASPIRIN EC 81 MG TABLET PO SCH (08:28)
[2018-06-19] MEDS: MORPHINE 4 MG/1 ML VIAL IV PRN (08:34)
== END 2018-06-19 12:49 | DRG 536 ==
LOC: EDUNIT# → N.ED 19:22 → N.EDINP 06-15 01:14 → N.3E 06-15 01:44
PROVIDERS: ADMIT Internal Medicine; ATTEND Internal Medicine

== ENCOUNTER 2018-09-25 10:12 | Observation (INO) ==
[2018-09-25] MEDS ORDERED: ASPIRIN 325 MG TABLET PO STA (10:35)
[2018-09-25] MEDS ORDERED: SODIUM CHLORIDE 0.9% 1,000 ML IV STA (10:35)
[2018-09-25] MEDS ORDERED: ONDANSETRON 4 MG/2 ML VIAL IV STA (10:35)
[2018-09-25] MEDS ORDERED: METOPROLOL TARTRATE 5 MG/5 ML VIAL IV STA (10:38)
[2018-09-25 10:44] LABS: Basophils % 0.5 % (0.0-0.8); Eosinophils % 0.7 % (0.00-10.9); Hematocrit 38.2 VOL% (35.7-47.0); Hemoglobin 12.4 GM/DL (12.0-16.0); Immature Granulocytes % 0.2 %; Immature Granulocytes Absolute 0.01 #; Lymphocytes # 1.9 10*3/uL (1.4-4.0); Lymphocytes % 33.3 % (21.3-54.2); Mean Corpuscular HGB Conc 32.5 GM/DL (32-36); Neutrophils % 55.3 % (38.7-73.9); Platelet Count 193 T/CUMM (130-400); Red Blood Count 4.02 MC/CUMM (3.8-5.5); Red Cell Distribution Width 14.6 % (9.3-17.3); White Blood Count 5.8 T/CUMM (4-12)
[2018-09-25 10:53] LABS: INR 1.1; PT Patient Result 11.9 SECS; Partial Thromboplastin Time 27.7 SECS (0-40)
[2018-09-25 11:12] LABS: Alanine Aminotransferase 16 U/L (13-56); Albumin 3.6 G/DL (3.4-5.0); Alkaline Phosphatase 79 U/L (45-117); Aspartate Amino Transferase 15 U/L (0-37); Bilirubin,Total < 0.39 MG/DL (0.2-1.0); Blood Urea Nitrogen 46 MG/DL (7-18); Calcium 9.6 MG/DL (8.5-10.1); Glucose 139 MG/DL (74-106); Total Protein 6.3 G/DL (6.4-8.3)
[2018-09-25] MEDS ORDERED: MORPHINE 4 MG/1 ML VIAL ONE ×2 (11:19→12:54)
[2018-09-25] MEDS ORDERED: MORPHINE 4 MG/1 ML VIAL IV STA ×2 (11:30→12:58)
[2018-09-25] MEDS ORDERED: ALUM/MAG/SIMETH/LIDO VISC 1:1 30 ML BOTTLE PO ONE (11:57)
[2018-09-25] MEDS ORDERED: ALUM/MAG/SIMETH/LIDO VISC 1:1 30 ML BOTTLE PO STA (11:57)
[2018-09-25 13:06] LABS: Apearance,Urine CLEAR (Clear); Bilirubin,Urine Negative (Negative); Blood, Urine Negative (Negative); Glucose,Urine (UA) Negative (Negative); Ketones,Urine 5 mg/dL (Negative); Nitrite,Urine Negative (Negative); Protein,Urine Negative; RBC,Urine 1 /HPF (0-4); Squamous Epithelial Cell,Urine Occasional /HPF (0-10); Urine Color Yellow (Yellow); Urine Specific Gravity 1.016 (1.001-1.035); Urine Urobilinogen < 2.0 EU/DL (0.2-1.0); WBC,Urine <1 /HPF (0-6)
[2018-09-25] MEDS ORDERED: ONDANSETRON 4 MG/2 ML VIAL IV PRN (13:35)
[2018-09-25] MEDS ORDERED: FLUCONAZOLE 200 MG TABLET PO ONE (13:40)
[2018-09-25] MEDS ORDERED: MECLIZINE 12.5 MG TABLET PO PRN (13:44)
[2018-09-25] MEDS ORDERED: ENOXAPARIN 30 MG/0.3 ML SYRINGE SUBCUT SCH (14:00)
[2018-09-25] MEDS: METOPROLOL TARTRATE 50 MG TABLET PO SCH (16:46)
[2018-09-25] MEDS ORDERED: NITROGLYCERIN SL 0.4 MG TABLET SL PRN (17:37)
[2018-09-25] MEDS ORDERED: POTASSIUM CHLORIDE 20 MEQ TABLET PO PRN (18:04)
[2018-09-25] MEDS ORDERED: MAGNESIUM SULF RIDER 4 GM in PREMIX 1 EACH IV PRN (18:05)
[2018-09-25] MEDS ORDERED: MAGNESIUM SULF RIDER 2 GM in PREMIX 1 EACH IV PRN (18:05)
[2018-09-25] MEDS: NITROGLYCERIN 2% OINT 1 INCH/GM PACK TOP SCH (18:50)
[2018-09-25] MEDS: ISOSORBIDE MONONITRATE 30 MG TABLET PO SCH (20:53)
[2018-09-25] MEDS: traZODone 50 MG TABLET PO SCH (20:55)
[2018-09-25] MEDS: PANTOPRAZOLE 40 MG TABLET PO SCH (20:55)
[2018-09-26] MEDS: NITROGLYCERIN 2% OINT 1 INCH/GM PACK TOP SCH ×2 (00:30→06:37)
[2018-09-26] MEDS: MORPHINE 4 MG/1 ML VIAL IV PRN ×3 (04:18→18:00)
[2018-09-26 05:17] LABS: Basophils % 0.2 % (0.0-0.8); Eosinophils # 0.1 10*3/uL (0.0-0.87); Eosinophils % 1.4 % (0.00-10.9); Hematocrit 26.9 VOL% (35.7-47.0); Hemoglobin 8.7 GM/DL (12.0-16.0); Immature Granulocytes % 0.2 %; Immature Granulocytes Absolute 0.01 #; Lymphocytes # 2.2 10*3/uL (1.4-4.0); Lymphocytes % 52.2 % (21.3-54.2); Mean Corpuscular HGB Conc 32.3 GM/DL (32-36); Mean Corpuscular Volume 98.2 FL (87-102); Mean Platelet Volume 11.2 FL (9.6-12.0); Monocytes % 8.2 % (1.7-12.7); Neutrophils % 37.8 % (38.7-73.9); Platelet Count 150 T/CUMM (130-400); Red Blood Count 2.74 MC/CUMM (3.8-5.5); Red Cell Distribution Width 15.3 % (9.3-17.3); White Blood Count 4.2 T/CUMM (4-12)
[2018-09-26 05:52] LABS: Anisocytosis Slight; Calcium 8.6 MG/DL (8.5-10.1); Lymphocytes 56 % (20-55); Microcytosis 1+; Osmolality,Calculated 300.8 MOS/KG (273-304); Segmented Neutrophils 43 % (50-85); Total Cells Counted 100
[2018-09-26 05:53] LABS: Platelet Estimate Normal
[2018-09-26 05:56] LABS: Risk Ratio 3.92; VLDL CHOLESTEROL 23.2 MG/DL
[2018-09-26] MEDS ORDERED: MORPHINE 4 MG/1 ML VIAL IV ONE ×2 (06:09→20:30)
[2018-09-26] MEDS ORDERED: PANTOPRAZOLE 40 MG TABLET PO SCH (09:00)
[2018-09-26] MEDS: METOPROLOL TARTRATE 50 MG TABLET PO SCH ×2 (10:03→16:21)
[2018-09-26] MEDS: LISINOPRIL 10 MG TABLET PO SCH (10:03)
[2018-09-26 10:20] LABS: Hematocrit 29.3 VOL% (35.7-47.0); Hemoglobin 9.2 GM/DL (12.0-16.0)
[2018-09-26] MEDS: PANTOPRAZOLE 40 MG TABLET PO SCH ×2 (11:14→21:03)
[2018-09-26] MEDS: PARoxetine 20 MG TABLET PO SCH (11:14)
[2018-09-26] MEDS: ASPIRIN EC 81 MG TABLET PO SCH (11:14)
[2018-09-26] MEDS ORDERED: ALUM/MAG/SIMETH/LIDO VISC 1:1 30 ML BOTTLE PO ONE (19:54)
[2018-09-26] MEDS ORDERED: KETOROLAC 15 MG/1 ML VIAL IV PRN (20:11)
[2018-09-26] MEDS: ISOSORBIDE MONONITRATE 30 MG TABLET PO SCH (21:03)
[2018-09-26] MEDS: MUPIROCIN 2% OINT 22 GM TUBE TOP SCH (21:04)
[2018-09-26] MEDS: traZODone 50 MG TABLET PO SCH (21:04)
[2018-09-26] MEDS: ENOXAPARIN 40 MG/0.4 ML SYRINGE SUBCUT SCH (21:10)
[2018-09-27 05:57] LABS: Basophils % 0.3 % (0.0-0.8); Eosinophils # 0.1 10*3/uL (0.0-0.87); Eosinophils % 2.9 % (0.00-10.9); Hematocrit 26.7 VOL% (35.7-47.0); Hemoglobin 8.2 GM/DL (12.0-16.0); Immature Granulocytes % 0.3 %; Immature Granulocytes Absolute 0.01 #; Lymphocytes # 1.6 10*3/uL (1.4-4.0); Lymphocytes % 43.7 % (21.3-54.2); Mean Corpuscular HGB Conc 30.7 GM/DL (32-36); Mean Corpuscular Volume 101.5 FL (87-102); Mean Platelet Volume 10.9 FL (9.6-12.0); Monocytes % 6.2 % (1.7-12.7); Neutrophils % 46.6 % (38.7-73.9); Platelet Count 128 T/CUMM (130-400); Red Blood Count 2.63 MC/CUMM (3.8-5.5); Red Cell Distribution Width 15.3 % (9.3-17.3); White Blood Count 3.7 T/CUMM (4-12)
[2018-09-27 06:06] LABS: Calcium 8.8 MG/DL (8.5-10.1); Osmolality,Calculated 296.8 MOS/KG (273-304)
[2018-09-27] MEDS ORDERED: FLUCONAZOLE 200 MG TABLET PO ONE (08:14)
[2018-09-27] MEDS: SODIUM CHLORIDE 0.9% 1,000 ML IV SCH ×2 (09:08→21:37)
[2018-09-27] MEDS: PANTOPRAZOLE 40 MG TABLET PO SCH ×2 (09:09→21:34)
[2018-09-27] MEDS: ASPIRIN EC 81 MG TABLET PO SCH (09:09)
[2018-09-27] MEDS: LISINOPRIL 10 MG TABLET PO SCH (09:10)
[2018-09-27] MEDS: METOPROLOL TARTRATE 50 MG TABLET PO SCH ×2 (09:10→17:42)
[2018-09-27] MEDS: KETOROLAC 15 MG/1 ML VIAL IV SCH ×3 (09:14→21:36)
[2018-09-27] MEDS: PARoxetine 20 MG TABLET PO SCH (09:14)
[2018-09-27] MEDS: MUPIROCIN 2% OINT 22 GM TUBE TOP SCH ×2 (09:14→21:35)
[2018-09-27] MEDS: MORPHINE 4 MG/1 ML VIAL IV PRN (10:38)
[2018-09-27 11:39] LABS: % Iron Saturation 6.7 % (18-50); Ferritin 14.3 ng/ml (8-252)
[2018-09-27] MEDS ORDERED: MORPHINE 4 MG/1 ML VIAL IV PRN (12:55)
[2018-09-27] MEDS: METAXALONE 800 MG TABLET PO SCH ×2 (14:09→21:31)
[2018-09-27] MEDS ORDERED: DOCUSATE SODIUM 100 MG CAPSULE PO PRN (17:15)
[2018-09-27] MEDS ORDERED: BISACODYL 5 MG TABLET PO ONE (20:00)
[2018-09-27] MEDS: ISOSORBIDE MONONITRATE 30 MG TABLET PO SCH (21:34)
[2018-09-27] MEDS: ENOXAPARIN 40 MG/0.4 ML SYRINGE SUBCUT SCH (21:35)
[2018-09-27] MEDS: traZODone 50 MG TABLET PO SCH (21:35)
[2018-09-28] MEDS: KETOROLAC 15 MG/1 ML VIAL IV SCH ×4 (03:43→20:59)
[2018-09-28 05:27] LABS: Basophils % 0.4 % (0.0-0.8); Eosinophils # 0.1 10*3/uL (0.0-0.87); Eosinophils % 3.5 % (0.00-10.9); Hemoglobin 7.4 GM/DL (12.0-16.0); Lymphocytes # 1.5 10*3/uL (1.4-4.0); Lymphocytes % 51.4 % (21.3-54.2); Mean Corpuscular HGB Conc 32.2 GM/DL (32-36); Mean Corpuscular Volume 98.7 FL (87-102); Mean Platelet Volume 11.1 FL (9.6-12.0); Monocytes % 7.7 % (1.7-12.7); Platelet Count 124 T/CUMM (130-400); Red Blood Count 2.33 MC/CUMM (3.8-5.5); Red Cell Distribution Width 15.2 % (9.3-17.3); White Blood Count 2.8 T/CUMM (4-12)
[2018-09-28 05:35] LABS: Calcium 8.4 MG/DL (8.5-10.1); Osmolality,Calculated 294.6 MOS/KG (273-304)
[2018-09-28 05:52] LABS: Atypical Lymphocytes Few; Eosinophils 3 % (0-10); Hypochromasia Slight; Lymphocytes 51 % (20-55); Segmented Neutrophils 45 % (50-85); Total Cells Counted 100
[2018-09-28 05:54] LABS: Microcytosis 1+; Platelet Estimate Adequate
[2018-09-28] MEDS: METOPROLOL TARTRATE 50 MG TABLET PO SCH ×2 (09:22→17:54)
[2018-09-28] MEDS: METAXALONE 800 MG TABLET PO SCH ×3 (09:22→20:59)
[2018-09-28] MEDS: LISINOPRIL 10 MG TABLET PO SCH (09:22)
[2018-09-28] MEDS: PANTOPRAZOLE 40 MG TABLET PO SCH ×2 (09:22→21:00)
[2018-09-28] MEDS: PARoxetine 20 MG TABLET PO SCH (09:22)
[2018-09-28] MEDS: ASPIRIN EC 81 MG TABLET PO SCH (09:22)
[2018-09-28] MEDS ORDERED: SODIUM CHLORIDE 0.9% 1,000 ML IV PRN (09:31)
[2018-09-28] MEDS ORDERED: MAGNESIUM CITRATE 300 ML BOTTLE PO ONE (09:31)
[2018-09-28] MEDS: MUPIROCIN 2% OINT 22 GM TUBE TOP SCH ×2 (10:14→20:59)
[2018-09-28] MEDS: IRON SUCROSE 200 MG in SODIUM CHLORIDE 0.9% 100 ML IV SCH (10:44)
[2018-09-28] MEDS: ISOSORBIDE MONONITRATE 30 MG TABLET PO SCH (20:59)
[2018-09-28] MEDS: traZODone 50 MG TABLET PO SCH (20:59)
[2018-09-28 22:56] LABS: Hemoglobin 10.5 GM/DL (12.0-16.0)
[2018-09-29] MEDS ORDERED: SODIUM CHLORIDE 0.9% 500 ML IV ONE (00:56)
[2018-09-29] MEDS: KETOROLAC 15 MG/1 ML VIAL IV SCH (07:19)
[2018-09-29 07:58] VITALS: BP 95/44
[2018-09-29] MEDS: METOPROLOL TARTRATE 50 MG TABLET PO SCH (08:18)
[2018-09-29] MEDS: LISINOPRIL 10 MG TABLET PO SCH (08:19)
[2018-09-29] MEDS: METAXALONE 800 MG TABLET PO SCH (08:28)
[2018-09-29] MEDS: IRON SUCROSE 200 MG in SODIUM CHLORIDE 0.9% 100 ML IV SCH (08:28)
[2018-09-29] MEDS: PANTOPRAZOLE 40 MG TABLET PO SCH (08:28)
[2018-09-29] MEDS: MUPIROCIN 2% OINT 22 GM TUBE TOP SCH (08:28)
[2018-09-29] MEDS: ASPIRIN EC 81 MG TABLET PO SCH (08:28)
[2018-09-29] MEDS: PARoxetine 20 MG TABLET PO SCH (08:28)
== END 2018-09-29 12:10 | disposition home health service (06) ==
LOC: EDBD → EDUNIT# → N.2E 10:12 → N.ED 10:12 → SUATTDRO 12:33 → N.2E 15:08
PROVIDERS: ADMIT Internal Medicine; ATTEND Internal Medicine Cardiovascular Disease

== ENCOUNTER 2019-10-31 12:24 | Observation (INO) ==
[2019-10-31 13:07] LABS: Basophils % 0.2 % (0.0-0.8); Hematocrit 40.9 VOL% (35.7-47.0); Hemoglobin 13.3 GM/DL (12.0-16.0); Immature Granulocytes % 0.6 %; Immature Granulocytes Absolute 0.05 #; Lymphocytes # 1.6 10*3/uL (1.4-4.0); Lymphocytes % 19.4 % (21.3-54.2); Mean Corpuscular HGB Conc 32.5 GM/DL (32-36); Mean Corpuscular Volume 85.9 FL (87-102); Mean Platelet Volume 9.5 FL (9.6-12.0); Monocytes % 7.6 % (1.7-12.7); Neutrophils % 72.2 % (38.7-73.9); Platelet Count 261 T/CUMM (130-400); Red Blood Count 4.76 MC/CUMM (3.8-5.5); Red Cell Distribution Width 16.9 % (9.3-17.3); White Blood Count 8.5 T/CUMM (4-12)
[2019-10-31 13:32] LABS: Albumin 3.4 G/DL (3.4-5.0); Bilirubin,Total 0.4 MG/DL (0.2-1.0); Calcium 9.7 MG/DL (8.5-10.1); Osmolality,Calculated 273.7 MOS/KG (273-304); Total Protein 7.8 G/DL (6.4-8.3)
[2019-10-31 14:27] LABS: Apearance,Urine CLEAR (Clear); Bacteria,Urine Moderate /HPF (Few); Bilirubin,Urine Negative (Negative); Blood, Urine Negative (Negative); Glucose,Urine (UA) Negative (Negative); Ketones,Urine Negative (Negative); Nitrite,Urine Negative (Negative); Protein,Urine Negative; RBC,Urine 1 /HPF (0-4); Squamous Epithelial Cell,Urine Occasional /HPF (0-10); Urine Color Yellow (Yellow); Urine Specific Gravity 1.008 (1.001-1.035); Urine Urobilinogen < 2.0 EU/DL (0.2-1.0); WBC,Urine 2 /HPF (0-6)
[2019-10-31] MEDS ORDERED: LACTULOSE 20 GM/30 ML UDCUP PO PRN (14:46)
[2019-10-31] MEDS ORDERED: GLUCAGON 1 MG VIAL IM PRN (14:46)
[2019-10-31] MEDS ORDERED: DOCUSATE SODIUM 100 MG CAPSULE PO PRN (14:46)
[2019-10-31] MEDS ORDERED: hydrALAZINE 20 MG/1 ML VIAL IV PRN (14:46)
[2019-10-31] MEDS ORDERED: DEXTROSE 50% 25 GM/50 ML VIAL IV PRN (14:46)
[2019-10-31] MEDS ORDERED: LABETALOL 20 MG/4 ML SYRINGE IV PRN (14:46)
[2019-10-31] MEDS ORDERED: ENOXAPARIN 40 MG/0.4 ML SYRINGE ONE (15:15)
[2019-10-31] MEDS: SODIUM CHLORIDE 0.9% 1,000 ML IV SCH (15:20)
[2019-10-31] MEDS: ENOXAPARIN 40 MG/0.4 ML SYRINGE SUBCUT SCH (15:21)
[2019-10-31 15:41] LABS: Barbiturates Screen,Urine Negative (Negative); Benzodiazepines Screen,Urine Negative (Negative); Cannabinoid Screen,Urine Negative (Negative); Opiate Screen,Urine Negative (Negative); Phencyclidine Screen,Urine Negative (Negative)
[2019-10-31] MEDS ORDERED: ACETAMINOPHEN 325 MG TABLET PO PRN (18:24)
[2019-10-31] MEDS: ATORVASTATIN 80 MG TABLET PO SCH (20:27)
[2019-10-31] MEDS: AMITRIPTYLINE 50 MG TABLET PO SCH (20:27)
[2019-11-01] MEDS: SODIUM CHLORIDE 0.9% 1,000 ML IV SCH ×3 (00:08→18:22)
[2019-11-01 06:12] LABS: Basophils # 0.1 10*3/uL (0.0-0.2); Basophils % 0.7 % (0.0-0.8); Eosinophils % 0.6 % (0.00-10.9); Hematocrit 39.1 VOL% (35.7-47.0); Hemoglobin 12.5 GM/DL (12.0-16.0); Immature Granulocytes % 0.3 %; Immature Granulocytes Absolute 0.02 #; Lymphocytes # 2.7 10*3/uL (1.4-4.0); Mean Corpuscular Volume 86.9 FL (87-102); Monocytes % 8.4 % (1.7-12.7); Platelet Count 265 T/CUMM (130-400); Red Cell Distribution Width 17.2 % (9.3-17.3); White Blood Count 6.8 T/CUMM (4-12)
[2019-11-01 06:47] LABS: Bilirubin,Total 0.6 MG/DL (0.2-1.0); Calcium 9.1 MG/DL (8.5-10.1); Osmolality,Calculated 279.3 MOS/KG (273-304); Risk Ratio 7.26; Thyroid Stimulating Hormone 0.679 uIU/ml (0.358-3.74); Total Protein 6.9 G/DL (6.4-8.3); VLDL CHOLESTEROL 48.4 MG/DL
[2019-11-01] MEDS: POTASSIUM CHLORIDE 20 MEQ TABLET PO PRN ×4 (09:41→19:13)
[2019-11-01] MEDS: PANTOPRAZOLE 40 MG TABLET PO SCH (09:41)
[2019-11-01] MEDS: ASPIRIN EC 81 MG TABLET PO SCH (09:41)
[2019-11-01] MEDS: traMADol 50 MG TABLET PO PRN (15:05)
[2019-11-01] MEDS: ONDANSETRON 4 MG/2 ML VIAL IV PRN (15:06)
[2019-11-01] MEDS: ENOXAPARIN 40 MG/0.4 ML SYRINGE SUBCUT SCH (15:06)
[2019-11-01] MEDS: AMITRIPTYLINE 50 MG TABLET PO SCH (20:40)
[2019-11-01] MEDS: ATORVASTATIN 80 MG TABLET PO SCH (20:40)
[2019-11-02] MEDS: SODIUM CHLORIDE 0.9% 1,000 ML IV SCH ×2 (04:44→05:30)
[2019-11-02 05:15] LABS: Basophils % 0.6 % (0.0-0.8); Eosinophils # 0.1 10*3/uL (0.0-0.87); Eosinophils % 1.6 % (0.00-10.9); Hematocrit 38.9 VOL% (35.7-47.0); Hemoglobin 12.5 GM/DL (12.0-16.0); Immature Granulocytes % 0.2 %; Immature Granulocytes Absolute 0.01 #; Lymphocytes # 2.3 10*3/uL (1.4-4.0); Lymphocytes % 37.1 % (21.3-54.2); Mean Corpuscular HGB Conc 32.1 GM/DL (32-36); Mean Corpuscular Volume 86.3 FL (87-102); Monocytes % 10.3 % (1.7-12.7); Neutrophils % 50.2 % (38.7-73.9); Platelet Count 208 T/CUMM (130-400); Red Blood Count 4.51 MC/CUMM (3.8-5.5); Red Cell Distribution Width 16.9 % (9.3-17.3); White Blood Count 6.3 T/CUMM (4-12)
[2019-11-02 05:37] LABS: Bilirubin,Total 1.2 MG/DL (0.2-1.0); Calcium 9.5 MG/DL (8.5-10.1); Osmolality,Calculated 277.5 MOS/KG (273-304); Total Protein 6.7 G/DL (6.4-8.3)
[2019-11-02 05:57] LABS: Atypical Lymphocytes Few; Hypochromasia 1+; Lymphocytes 42 % (20-55); Segmented Neutrophils 51 % (50-85); Total Cells Counted 100
[2019-11-02 05:58] LABS: Microcytosis 1+; Platelet Estimate Normal
[2019-11-02] MEDS: PANTOPRAZOLE 40 MG TABLET PO SCH (08:10)
[2019-11-02] MEDS: ASPIRIN EC 81 MG TABLET PO SCH (08:10)
[2019-11-02] MEDS: traMADol 50 MG TABLET PO PRN (08:14)
[2019-11-02] MEDS: ONDANSETRON 4 MG/2 ML VIAL IV PRN (08:14)
[2019-11-02] MEDS ORDERED: lisinopriL 20 MG TABLET PO SCH (09:15)
[2019-11-02] MEDS: AMITRIPTYLINE 50 MG TABLET PO SCH ×2 (10:38→20:37)
[2019-11-02] MEDS: BUTALBITAL/ACETAMIN/CAFFEINE 50-325-40 MG TABLET PO PRN (10:38)
[2019-11-02] MEDS: GABAPENTIN 100 MG CAPSULE PO SCH ×2 (15:10→20:37)
[2019-11-02] MEDS: ENOXAPARIN 40 MG/0.4 ML SYRINGE SUBCUT SCH (15:17)
[2019-11-02] MEDS: METOPROLOL TARTRATE 100 MG TABLET PO SCH (20:34)
[2019-11-02] MEDS: busPIRone 10 MG TABLET PO SCH (20:37)
[2019-11-02] MEDS: ATORVASTATIN 80 MG TABLET PO SCH (20:37)
[2019-11-03 06:55] LABS: Basophils # 0.1 10*3/uL (0.0-0.2); Basophils % 0.8 % (0.0-0.8); Eosinophils # 0.2 10*3/uL (0.0-0.87); Eosinophils % 2.5 % (0.00-10.9); Hematocrit 41.6 VOL% (35.7-47.0); Hemoglobin 13.3 GM/DL (12.0-16.0); Immature Granulocytes % 0.5 %; Immature Granulocytes Absolute 0.03 #; Lymphocytes # 2.3 10*3/uL (1.4-4.0); Mean Corpuscular Volume 88.5 FL (87-102); Mean Platelet Volume 10.7 FL (9.6-12.0); Monocytes % 10.9 % (1.7-12.7); Neutrophils % 47.3 % (38.7-73.9); Platelet Count 230 T/CUMM (130-400); Red Cell Distribution Width 17.2 % (9.3-17.3)
[2019-11-03] MEDS: BUTALBITAL/ACETAMIN/CAFFEINE 50-325-40 MG TABLET PO PRN (07:03)
[2019-11-03 07:07] LABS: Bilirubin,Total 0.4 MG/DL (0.2-1.0); Calcium 9.9 MG/DL (8.5-10.1); Osmolality,Calculated 279.5 MOS/KG (273-304); Total Protein 6.8 G/DL (6.4-8.3)
[2019-11-03 07:11] LABS: Hypochromasia Slight; Microcytosis 1+; Platelet Estimate Adequate
[2019-11-03] MEDS: ASPIRIN EC 81 MG TABLET PO SCH (09:08)
[2019-11-03] MEDS: AMITRIPTYLINE 50 MG TABLET PO SCH (09:08)
[2019-11-03] MEDS: GABAPENTIN 100 MG CAPSULE PO SCH (09:08)
[2019-11-03] MEDS: METOPROLOL TARTRATE 100 MG TABLET PO SCH (09:08)
[2019-11-03] MEDS: busPIRone 10 MG TABLET PO SCH (09:08)
[2019-11-03] MEDS: PANTOPRAZOLE 40 MG TABLET PO SCH (09:09)
[2019-11-03 11:33] VITALS: BP 116/63
== END 2019-11-03 15:00 | disposition home or self-care (01) | DRG 312 ==
LOC: EDBD → EDUNIT# → N.ED 12:24 → N.EDINP 12:24 → SUATTDRO 14:57 → N.5E 15:43
PROVIDERS: ADMIT Physician Assistant; ATTEND Internal Medicine

== ENCOUNTER 2020-12-24 15:12 | Inpatient (IN) ==
[2020-12-24 15:55] LABS: Basophils # 0.1 10*3/uL (0.0-0.2); Basophils % 0.7 % (0.0-0.8); Eosinophils # 0.4 10*3/uL (0.0-0.87); Eosinophils % 3.5 % (0.00-10.9); Hematocrit 41.7 VOL% (35.7-47.0); Hemoglobin 13.8 GM/DL (12.0-16.0); Immature Granulocytes % 0.8 %; Immature Granulocytes Absolute 0.08 #; Lymphocytes # 2.1 10*3/uL (1.4-4.0); Lymphocytes % 19.6 % (21.3-54.2); Mean Corpuscular HGB Conc 33.1 GM/DL (32-36); Mean Corpuscular Volume 94.1 FL (87-102); Monocytes % 7.1 % (1.7-12.7); Neutrophils % 68.3 % (38.7-73.9); Platelet Count 328 T/CUMM (130-400); Red Blood Count 4.43 MC/CUMM (3.8-5.5); Red Cell Distribution Width 13.8 % (9.3-17.3); White Blood Count 10.6 T/CUMM (4-12)
[2020-12-24 16:13] LABS: Albumin 2.5 G/DL (3.4-5.0); Bilirubin,Total 0.7 MG/DL (0.20-1.00); Calcium 9.5 MG/DL (8.5-10.1); Osmolality,Calculated 289.1 MOS/KG (273-304); Total Protein 7.2 G/DL (6.4-8.2)
[2020-12-24 16:14] LABS: Potassium 5.8 MMOL/L (3.5-5.1)
[2020-12-24] MEDS ORDERED: DEXTROSE 50% 25 GM/50 ML VIAL IV PRN (17:05)
[2020-12-24] MEDS ORDERED: GLUCAGON 1 MG VIAL IM PRN (17:05)
[2020-12-24] MEDS: ENOXAPARIN 30 MG/0.3 ML SYRINGE SUBCUT SCH (17:42)
[2020-12-24] MEDS: SODIUM CHLORIDE 0.9% 1,000 ML IV SCH (17:43)
[2020-12-24] MEDS: INSULIN LISPRO 100 UNIT/ML SUBCUT SCH (19:10)
[2020-12-24 19:32] LABS: Risk Ratio 7.14; Thyroid Stimulating Hormone 1.56 uIU/ml (0.358-3.74); VLDL Cholesterol 38.4 MG/DL
[2020-12-25] MEDS: INSULIN LISPRO 100 UNIT/ML SUBCUT SCH ×5 (01:03→18:48)
[2020-12-25 04:38] LABS: Basophils # 0.1 10*3/uL (0.0-0.2); Basophils % 0.7 % (0.0-0.8); Eosinophils # 0.6 10*3/uL (0.0-0.87); Eosinophils % 7.6 % (0.00-10.9); Hematocrit 38.5 VOL% (35.7-47.0); Hemoglobin 12.5 GM/DL (12.0-16.0); Immature Granulocytes % 0.7 %; Immature Granulocytes Absolute 0.05 #; Lymphocytes # 1.7 10*3/uL (1.4-4.0); Lymphocytes % 23.5 % (21.3-54.2); Mean Corpuscular HGB Conc 32.5 GM/DL (32-36); Mean Corpuscular Volume 95.5 FL (87-102); Mean Platelet Volume 9.7 FL (9.6-12.0); Monocytes % 7.3 % (1.7-12.7); Neutrophils % 60.2 % (38.7-73.9); Platelet Count 273 T/CUMM (130-400); Red Blood Count 4.03 MC/CUMM (3.8-5.5); Red Cell Distribution Width 13.8 % (9.3-17.3); White Blood Count 7.2 T/CUMM (4-12)
[2020-12-25] MEDS: SODIUM CHLORIDE 0.9% 1,000 ML IV SCH (04:57)
[2020-12-25 05:01] LABS: Calcium 8.8 MG/DL (8.5-10.1); Osmolality,Calculated 296.3 MOS/KG (273-304); Potassium 3.9 MMOL/L (3.5-5.1)
[2020-12-25] MEDS: ASPIRIN CHEW 81 MG TABLET PO SCH (09:58)
[2020-12-25] MEDS ORDERED: SODIUM CHLORIDE 0.9% 1,000 ML IV SCH (11:00)
[2020-12-25] MEDS: CLOPIDOGREL 75 MG TABLET PO SCH (12:47)
[2020-12-25] MEDS: POLYVINYL ALCOHOL 1.4% OPH SOLN 15 ML BOTTLE BOTH EYES SCH ×3 (12:52→21:41)
[2020-12-25] MEDS: SODIUM CHLORIDE 0.45% 1,000 ML IV SCH (17:47)
[2020-12-25] MEDS: PILOCARPINE 5 MG TABLET PO SCH ×2 (17:48→21:42)
[2020-12-25] MEDS: ENOXAPARIN 30 MG/0.3 ML SYRINGE SUBCUT SCH (17:49)
[2020-12-25] MEDS: busPIRone 5 MG TABLET PO SCH (21:41)
[2020-12-25] MEDS: METOPROLOL TARTRATE 25 MG TABLET PO SCH (21:41)
[2020-12-25] MEDS: ATORVASTATIN 40 MG TABLET PO SCH (21:41)
[2020-12-25] MEDS: AMITRIPTYLINE 25 MG TABLET PO SCH (21:41)
[2020-12-25] MEDS: traMADol 50 MG TABLET PO SCH (21:42)
[2020-12-25] MEDS: GABAPENTIN 100 MG CAPSULE PO SCH (21:42)
[2020-12-26] MEDS ORDERED: METOPROLOL TARTRATE 50 MG TABLET PO ONE (00:17)
[2020-12-26] MEDS: INSULIN LISPRO 100 UNIT/ML SUBCUT SCH ×4 (00:47→18:11)
[2020-12-26] MEDS ORDERED: ALUMINUM/MAGNES/SIMETH MAX STR 30 ML UDCUP PO PRN (02:07)
[2020-12-26] MEDS ORDERED: SODIUM CHLORIDE 0.9% 250 ML IV ONE (06:00)
[2020-12-26] MEDS ORDERED: METOPROLOL TARTRATE 25 MG TABLET PO ONE (06:00)
[2020-12-26 06:13] LABS: Basophils # 0.1 10*3/uL (0.0-0.2); Basophils % 0.5 % (0.0-0.8); Eosinophils % 0.2 % (0.00-10.9); Hematocrit 36.6 VOL% (35.7-47.0); Immature Granulocytes % 0.9 %; Lymphocytes # 1.2 10*3/uL (1.4-4.0); Lymphocytes % 10.6 % (21.3-54.2); Mean Corpuscular HGB Conc 32.8 GM/DL (32-36); Mean Corpuscular Volume 94.3 FL (87-102); Mean Platelet Volume 10.3 FL (9.6-12.0); Monocytes % 5.9 % (1.7-12.7); Neutrophils % 81.9 % (38.7-73.9); Platelet Count 319 T/CUMM (130-400); Red Blood Count 3.88 MC/CUMM (3.8-5.5); Red Cell Distribution Width 13.6 % (9.3-17.3); White Blood Count 10.8 T/CUMM (4-12)
[2020-12-26 07:03] LABS: Calcium 8.9 MG/DL (8.5-10.1); Osmolality,Calculated 294.4 MOS/KG (273-304); Potassium 3.8 MMOL/L (3.5-5.1)
[2020-12-26] MEDS ORDERED: METOPROLOL TARTRATE 5 MG/5 ML VIAL IV ONE (07:26)
[2020-12-26] MEDS: ONDANSETRON 4 MG/2 ML VIAL IV PRN ×2 (07:33→09:37)
[2020-12-26] MEDS ORDERED: NITROGLYCERIN SL 0.4 MG TABLET SL PRN (07:38)
[2020-12-26] MEDS ORDERED: ASPIRIN CHEW 81 MG TABLET PO ONE ×2 (07:41→08:26)
[2020-12-26] MEDS ORDERED: SODIUM CHLORIDE 0.9% 500 ML IV ONE ×2 (07:41→17:19)
[2020-12-26] MEDS ORDERED: ASPIRIN 325 MG TABLET ONE (07:42)
[2020-12-26] MEDS ORDERED: ENOXAPARIN 80 MG/0.8 ML SYRINGE SUBCUT ONE (07:48)
[2020-12-26] MEDS ORDERED: DIAZEPAM 5 MG TABLET PO ONE (07:58)
[2020-12-26] MEDS ORDERED: diphenhydrAMINE CAP 25 MG CAPSULE PO ONE (07:58)
[2020-12-26] MEDS ORDERED: LIDOCAINE 1% 20 ML VIAL ONE (08:03)
[2020-12-26] MEDS ORDERED: HEPARIN/NACL 0.9% 2 UNITS/ML 2,000 UNIT/1,000 ML BAG IV ONE (08:03)
[2020-12-26] MEDS ORDERED: NITROGLYCERIN DRIP 50 MG/250 ML BOTTLE IV ONE (08:11)
[2020-12-26] MEDS ORDERED: VERAPAMIL 5 MG/2 ML VIAL ONE (08:11)
[2020-12-26] MEDS ORDERED: MIDAZOLAM 2 MG/2 ML VIAL ONE (08:26)
[2020-12-26 10:32] LABS: Hematocrit 35.4 VOL% (35.7-47.0)
[2020-12-26] MEDS: PANTOPRAZOLE INJ 200 MG in SODIUM CHLORIDE 0.9% 250 ML IV SCH (11:24)
[2020-12-26] MEDS: SODIUM CHLORIDE 0.45% 1,000 ML IV SCH ×2 (11:24→14:16)
[2020-12-26] MEDS: POLYVINYL ALCOHOL 1.4% OPH SOLN 15 ML BOTTLE BOTH EYES SCH ×4 (11:26→20:47)
[2020-12-26] MEDS: GABAPENTIN 100 MG CAPSULE PO SCH ×3 (11:29→20:47)
[2020-12-26] MEDS: busPIRone 5 MG TABLET PO SCH ×2 (11:50→20:47)
[2020-12-26] MEDS: PARoxetine 10 MG TABLET PO SCH (11:51)
[2020-12-26] MEDS: traMADol 50 MG TABLET PO SCH ×3 (11:51→16:58)
[2020-12-26] MEDS: PILOCARPINE 5 MG TABLET PO SCH ×3 (11:51→20:47)
[2020-12-26] MEDS: METOPROLOL TARTRATE 25 MG TABLET PO SCH ×2 (12:50→21:30)
[2020-12-26] MEDS: CLOPIDOGREL 75 MG TABLET PO SCH (14:16)
[2020-12-26] MEDS: ASPIRIN CHEW 81 MG TABLET PO SCH (14:16)
[2020-12-26 17:47] LABS: Hematocrit 29.4 VOL% (35.7-47.0)
[2020-12-26] MEDS: ATORVASTATIN 40 MG TABLET PO SCH (20:47)
[2020-12-26] MEDS: AMITRIPTYLINE 25 MG TABLET PO SCH (20:47)
[2020-12-26 22:04] LABS: Hematocrit 29.8 VOL% (35.7-47.0); Hemoglobin 9.9 GM/DL (12.0-16.0)
[2020-12-27] MEDS: INSULIN LISPRO 100 UNIT/ML SUBCUT SCH ×4 (00:04→18:00)
[2020-12-27] MEDS: SODIUM CHLORIDE 0.45% 1,000 ML IV SCH ×3 (00:21→12:00)
[2020-12-27 05:05] LABS: Basophils # 0.1 10*3/uL (0.0-0.2); Basophils % 0.7 % (0.0-0.8); Eosinophils # 0.2 10*3/uL (0.0-0.87); Eosinophils % 2.1 % (0.00-10.9); Hematocrit 29.1 VOL% (35.7-47.0); Hemoglobin 9.5 GM/DL (12.0-16.0); Immature Granulocytes % 0.9 %; Immature Granulocytes Absolute 0.08 #; Lymphocytes # 2.6 10*3/uL (1.4-4.0); Lymphocytes % 29.5 % (21.3-54.2); Mean Corpuscular HGB Conc 32.6 GM/DL (32-36); Mean Corpuscular Volume 95.7 FL (87-102); Mean Platelet Volume 9.9 FL (9.6-12.0); Monocytes % 7.2 % (1.7-12.7); Neutrophils % 59.6 % (38.7-73.9); Platelet Count 260 T/CUMM (130-400); Red Blood Count 3.04 MC/CUMM (3.8-5.5); White Blood Count 8.7 T/CUMM (4-12)
[2020-12-27 05:35] LABS: Alanine Aminotransferase 28 U/L (13-56); Albumin 2.1 G/DL (3.4-5.0); Alkaline Phosphatase 90 U/L (45-117); Aspartate Amino Transferase 62 U/L (0-37); Bilirubin,Total < 0.39 MG/DL (0.20-1.00); Blood Urea Nitrogen 41 MG/DL (7-18); Carbon Dioxide 23 MMOL/L (21-32); Estimated Glom Filtration Rate 87 ML/MIN; Glucose 148 MG/DL (74-106); Osmolality,Calculated 289.5 MOS/KG (273-304); Potassium 3.7 MMOL/L (3.5-5.1); Sodium 139 MMOL/L (136-145)
[2020-12-27] MEDS ORDERED: SODIUM CHLORIDE 0.9% 500 ML IV ONE ×2 (06:31→09:19)
[2020-12-27] MEDS ORDERED: traMADol 50 MG TABLET PO ONE (06:33)
[2020-12-27] MEDS: POLYVINYL ALCOHOL 1.4% OPH SOLN 15 ML BOTTLE BOTH EYES SCH ×4 (09:00→20:19)
[2020-12-27] MEDS: traMADol 50 MG TABLET PO SCH ×5 (09:00→22:51)
[2020-12-27] MEDS: PHENYLEPHRINE DRIP 40 MG/250 ML PREMIX IV PRN ×2 (09:20→19:30)
[2020-12-27 09:34] LABS: Hematocrit 27.4 VOL% (35.7-47.0)
[2020-12-27] MEDS: busPIRone 5 MG TABLET PO SCH ×2 (10:25→20:19)
[2020-12-27] MEDS: PARoxetine 10 MG TABLET PO SCH (10:25)
[2020-12-27] MEDS: MIRTAZAPINE 15 MG TABLET PO SCH (10:25)
[2020-12-27] MEDS: PILOCARPINE 5 MG TABLET PO SCH ×3 (10:26→20:19)
[2020-12-27] MEDS: GABAPENTIN 100 MG CAPSULE PO SCH ×3 (10:26→21:46)
[2020-12-27] MEDS: METOPROLOL TARTRATE 25 MG TABLET PO SCH (12:58)
[2020-12-27] MEDS: PANTOPRAZOLE INJ 200 MG in SODIUM CHLORIDE 0.9% 250 ML IV SCH (14:00)
[2020-12-27] MEDS: AMITRIPTYLINE 25 MG TABLET PO SCH (20:19)
[2020-12-27] MEDS: ATORVASTATIN 40 MG TABLET PO SCH (20:19)
[2020-12-27 21:17] LABS: Bacteria,Urine Many /HPF (Few); Bilirubin,Urine Negative (Negative); Blood, Urine Moderate mg/dL (Negative); Glucose,Urine (UA) Negative (Negative); Ketones,Urine Negative (Negative); Mucus,Urine Occasional /LPF (Occasional); Nitrite,Urine Negative (Negative); Protein,Urine 100 MG/DL; RBC,Urine 51 /HPF (0-4); Squamous Epithelial Cell,Urine Occasional /HPF (0-10); Urine Appearance CLOUDY (Clear); Urine Color Yellow (Yellow); Urine Specific Gravity 1.018 (1.001-1.035); Urine Urobilinogen < 2.0 EU/DL (0.2-1.0)
[2020-12-28] MEDS: INSULIN LISPRO 100 UNIT/ML SUBCUT SCH ×4 (01:17→17:40)
[2020-12-28] MEDS: PHENYLEPHRINE DRIP 40 MG/250 ML PREMIX IV PRN ×3 (01:38→07:30)
[2020-12-28] MEDS: SODIUM CHLORIDE 0.45% 1,000 ML IV SCH ×2 (01:45→15:03)
[2020-12-28 04:40] LABS: Basophils # 0.1 10*3/uL (0.0-0.2); Basophils % 0.6 % (0.0-0.8); Eosinophils # 0.4 10*3/uL (0.0-0.87); Eosinophils % 4.5 % (0.00-10.9); Hematocrit 28.1 VOL% (35.7-47.0); Hemoglobin 9.2 GM/DL (12.0-16.0); Immature Granulocytes % 0.6 %; Immature Granulocytes Absolute 0.06 #; Lymphocytes # 2.8 10*3/uL (1.4-4.0); Lymphocytes % 28.3 % (21.3-54.2); Mean Corpuscular HGB Conc 32.7 GM/DL (32-36); Mean Corpuscular Volume 97.2 FL (87-102); Monocytes % 7.5 % (1.7-12.7); Neutrophils % 58.5 % (38.7-73.9); Platelet Count 312 T/CUMM (130-400); Red Blood Count 2.89 MC/CUMM (3.8-5.5); Red Cell Distribution Width 14.3 % (9.3-17.3); White Blood Count 9.9 T/CUMM (4-12)
[2020-12-28 05:03] LABS: Alanine Aminotransferase 23 U/L (13-56); Albumin 2.1 G/DL (3.4-5.0); Alkaline Phosphatase 81 U/L (45-117); Aspartate Amino Transferase 41 U/L (0-37); Bilirubin,Total < 0.39 MG/DL (0.20-1.00); Blood Urea Nitrogen 24 MG/DL (7-18); Calcium 8.2 MG/DL (8.5-10.1); Carbon Dioxide 23 MMOL/L (21-32); Estimated Glom Filtration Rate 87 ML/MIN; Glucose 131 MG/DL (74-106); Osmolality,Calculated 293.7 MOS/KG (273-304); Potassium 3.2 MMOL/L (3.5-5.1); Sodium 145 MMOL/L (136-145); Total Protein 5.2 G/DL (6.4-8.2)
[2020-12-28] MEDS: POTASSIUM BICARB EFFERVESCENT 20 MEQ TAB.EFF PO PRN ×4 (05:58→12:01)
[2020-12-28] MEDS ORDERED: PHENYLEPHRINE INJ 160 MG in SODIUM CHLORIDE 0.9% 234 ML IV PRN (07:09)
[2020-12-28] MEDS ORDERED: traMADol 50 MG TABLET PO PRN (07:48)
[2020-12-28] MEDS: PILOCARPINE 5 MG TABLET PO SCH ×3 (08:20→20:09)
[2020-12-28] MEDS: PARoxetine 10 MG TABLET PO SCH (08:20)
[2020-12-28] MEDS: busPIRone 5 MG TABLET PO SCH ×2 (08:21→20:09)
[2020-12-28] MEDS: CIPROFLOXACIN 500 MG TABLET PO SCH ×2 (08:21→20:09)
[2020-12-28] MEDS: GABAPENTIN 100 MG CAPSULE PO SCH ×3 (08:21→20:30)
[2020-12-28] MEDS: POLYVINYL ALCOHOL 1.4% OPH SOLN 15 ML BOTTLE BOTH EYES SCH ×4 (09:43→20:09)
[2020-12-28] MEDS: PHENOL 1.4% THROAT SPRAY 177 ML BOTTLE PO PRN ×2 (17:25→20:12)
[2020-12-28] MEDS: ATORVASTATIN 40 MG TABLET PO SCH (20:09)
[2020-12-28] MEDS: PANTOPRAZOLE 40 MG VIAL IV SCH (20:09)
[2020-12-28] MEDS: AMITRIPTYLINE 25 MG TABLET PO SCH (20:09)
[2020-12-29] MEDS: INSULIN LISPRO 100 UNIT/ML SUBCUT SCH ×4 (00:12→17:56)
[2020-12-29] MEDS: SODIUM CHLORIDE 0.45% 1,000 ML IV SCH ×3 (02:45→16:01)
[2020-12-29 04:08] LABS: Basophils % 0.5 % (0.0-0.8); Eosinophils # 0.4 10*3/uL (0.0-0.87); Eosinophils % 5.5 % (0.00-10.9); Hematocrit 25.6 VOL% (35.7-47.0); Hemoglobin 8.4 GM/DL (12.0-16.0); Immature Granulocytes % 0.7 %; Immature Granulocytes Absolute 0.05 #; Lymphocytes # 2.3 10*3/uL (1.4-4.0); Lymphocytes % 30.8 % (21.3-54.2); Mean Corpuscular HGB Conc 32.8 GM/DL (32-36); Mean Corpuscular Volume 98.5 FL (87-102); Mean Platelet Volume 9.7 FL (9.6-12.0); Neutrophils % 55.5 % (38.7-73.9); Platelet Count 226 T/CUMM (130-400); Red Cell Distribution Width 14.6 % (9.3-17.3); White Blood Count 7.4 T/CUMM (4-12)
[2020-12-29 04:54] LABS: Bilirubin,Total 0.4 MG/DL (0.20-1.00); Osmolality,Calculated 285.8 MOS/KG (273-304); Potassium 3.8 MMOL/L (3.5-5.1); Total Protein 4.9 G/DL (6.4-8.2)
[2020-12-29] MEDS: POLYVINYL ALCOHOL 1.4% OPH SOLN 15 ML BOTTLE BOTH EYES SCH ×4 (08:50→20:13)
[2020-12-29] MEDS: PANTOPRAZOLE 40 MG VIAL IV SCH ×2 (08:50→20:13)
[2020-12-29] MEDS: GABAPENTIN 100 MG CAPSULE PO SCH ×5 (11:12→21:06)
[2020-12-29] MEDS: PILOCARPINE 5 MG TABLET PO SCH ×3 (11:13→20:12)
[2020-12-29] MEDS: busPIRone 5 MG TABLET PO SCH ×2 (11:13→20:13)
[2020-12-29] MEDS: CIPROFLOXACIN 500 MG TABLET PO SCH ×2 (12:26→20:12)
[2020-12-29] MEDS ORDERED: propofoL 200 MG/20 ML VIAL IV ONE (15:32)
[2020-12-29] MEDS ORDERED: ETOMIDATE 40 MG/20 ML VIAL IV ONE (15:32)
[2020-12-29] MEDS ORDERED: LIDOCAINE 2% 5 ML VIAL ONE (15:32)
[2020-12-29] MEDS: ASPIRIN CHEW 81 MG TABLET PO SCH (15:59)
[2020-12-29] MEDS: POTASSIUM BICARB EFFERVESCENT 20 MEQ TAB.EFF PO PRN (16:00)
[2020-12-29] MEDS: MIRTAZAPINE 15 MG TABLET PO SCH (16:00)
[2020-12-29] MEDS: PARoxetine 10 MG TABLET PO SCH (16:00)
[2020-12-29] MEDS ORDERED: LACTATED RINGERS 500 ML IV ONE (17:29)
[2020-12-29] MEDS ORDERED: DIGOXIN 0.5 MG/2 ML AMP IV ONE ×2 (18:44→19:45)
[2020-12-29] MEDS: ATORVASTATIN 40 MG TABLET PO SCH (20:12)
[2020-12-29] MEDS: AMITRIPTYLINE 25 MG TABLET PO SCH (20:12)
[2020-12-29] MEDS: PHENOL 1.4% THROAT SPRAY 177 ML BOTTLE PO PRN (20:15)
[2020-12-30] MEDS: INSULIN LISPRO 100 UNIT/ML SUBCUT SCH ×4 (01:01→17:53)
[2020-12-30 04:03] LABS: Basophils % 0.4 % (0.0-0.8); Eosinophils # 0.3 10*3/uL (0.0-0.87); Eosinophils % 6.1 % (0.00-10.9); Hematocrit 25.3 VOL% (35.7-47.0); Hemoglobin 8.1 GM/DL (12.0-16.0); Immature Granulocytes % 0.4 %; Immature Granulocytes Absolute 0.02 #; Lymphocytes # 1.7 10*3/uL (1.4-4.0); Lymphocytes % 33.7 % (21.3-54.2); Mean Corpuscular Volume 98.8 FL (87-102); Monocytes % 6.7 % (1.7-12.7); Neutrophils % 52.7 % (38.7-73.9); Platelet Count 189 T/CUMM (130-400); Red Blood Count 2.56 MC/CUMM (3.8-5.5); Red Cell Distribution Width 14.7 % (9.3-17.3); White Blood Count 5.1 T/CUMM (4-12)
[2020-12-30 04:08] LABS: Calcium 8.3 MG/DL (8.5-10.1); Osmolality,Calculated 281.1 MOS/KG (273-304); Potassium 3.8 MMOL/L (3.5-5.1)
[2020-12-30] MEDS: POTASSIUM BICARB EFFERVESCENT 20 MEQ TAB.EFF PO PRN (06:29)
[2020-12-30] MEDS: POLYVINYL ALCOHOL 1.4% OPH SOLN 15 ML BOTTLE BOTH EYES SCH ×4 (08:19→21:05)
[2020-12-30] MEDS: GABAPENTIN 100 MG CAPSULE PO SCH ×3 (08:19→21:03)
[2020-12-30] MEDS: ASPIRIN CHEW 81 MG TABLET PO SCH (08:19)
[2020-12-30] MEDS: CIPROFLOXACIN 500 MG TABLET PO SCH ×2 (08:19→21:03)
[2020-12-30] MEDS: PARoxetine 10 MG TABLET PO SCH (08:19)
[2020-12-30] MEDS: busPIRone 5 MG TABLET PO SCH ×2 (08:19→21:03)
[2020-12-30] MEDS: PILOCARPINE 5 MG TABLET PO SCH ×3 (08:19→21:04)
[2020-12-30] MEDS: PANTOPRAZOLE 40 MG VIAL IV SCH (08:20)
[2020-12-30] MEDS: PANTOPRAZOLE 40 MG TABLET PO SCH (08:32)
[2020-12-30] MEDS: APIXABAN 2.5 MG TABLET PO SCH ×2 (08:33→21:04)
[2020-12-30] MEDS: AMITRIPTYLINE 25 MG TABLET PO SCH (21:03)
[2020-12-30] MEDS: ATORVASTATIN 40 MG TABLET PO SCH (21:04)
[2020-12-31] MEDS: INSULIN LISPRO 100 UNIT/ML SUBCUT SCH ×4 (02:17→18:32)
[2020-12-31 06:23] LABS: Basophils % 0.5 % (0.0-0.8); Eosinophils # 0.5 10*3/uL (0.0-0.87); Eosinophils % 7.7 % (0.00-10.9); Hematocrit 28.5 VOL% (35.7-47.0); Hemoglobin 8.9 GM/DL (12.0-16.0); Immature Granulocytes % 0.5 %; Immature Granulocytes Absolute 0.03 #; Lymphocytes % 32.2 % (21.3-54.2); Mean Corpuscular HGB Conc 31.2 GM/DL (32-36); Mean Corpuscular Volume 99.7 FL (87-102); Mean Platelet Volume 10.4 FL (9.6-12.0); Monocytes % 6.9 % (1.7-12.7); Neutrophils % 52.2 % (38.7-73.9); Platelet Count 230 T/CUMM (130-400); Red Blood Count 2.86 MC/CUMM (3.8-5.5); Red Cell Distribution Width 14.9 % (9.3-17.3); White Blood Count 6.3 T/CUMM (4-12)
[2020-12-31 07:19] LABS: Calcium 8.5 MG/DL (8.5-10.1); Osmolality,Calculated 286.7 MOS/KG (273-304); Potassium 3.9 MMOL/L (3.5-5.1)
[2020-12-31] MEDS: busPIRone 5 MG TABLET PO SCH ×2 (08:18→20:30)
[2020-12-31] MEDS: APIXABAN 2.5 MG TABLET PO SCH ×2 (08:18→20:31)
[2020-12-31] MEDS: PANTOPRAZOLE 40 MG TABLET PO SCH (08:18)
[2020-12-31] MEDS: ASPIRIN CHEW 81 MG TABLET PO SCH (08:18)
[2020-12-31] MEDS: POLYVINYL ALCOHOL 1.4% OPH SOLN 15 ML BOTTLE BOTH EYES SCH ×4 (08:18→20:39)
[2020-12-31] MEDS: PILOCARPINE 5 MG TABLET PO SCH ×3 (08:18→20:31)
[2020-12-31] MEDS: PARoxetine 10 MG TABLET PO SCH (08:18)
[2020-12-31] MEDS: GABAPENTIN 100 MG CAPSULE PO SCH ×3 (08:18→20:31)
[2020-12-31] MEDS: MIRTAZAPINE 15 MG TABLET PO SCH (08:19)
[2020-12-31] MEDS: CIPROFLOXACIN 500 MG TABLET PO SCH ×2 (08:21→20:30)
[2020-12-31] MEDS ORDERED: MELATONIN 3 MG TABLET PO PRN (09:35)
[2020-12-31] MEDS: ATORVASTATIN 40 MG TABLET PO SCH (20:31)
[2020-12-31] MEDS: AMITRIPTYLINE 25 MG TABLET PO SCH (20:31)
[2021-01-01] MEDS: INSULIN LISPRO 100 UNIT/ML SUBCUT SCH ×3 (00:12→11:54)
[2021-01-01 06:04] LABS: Basophils % 0.5 % (0.0-0.8); Eosinophils # 0.4 10*3/uL (0.0-0.87); Eosinophils % 7.2 % (0.00-10.9); Hematocrit 27.9 VOL% (35.7-47.0); Hemoglobin 8.9 GM/DL (12.0-16.0); Immature Granulocytes % 0.7 %; Immature Granulocytes Absolute 0.04 #; Lymphocytes # 1.6 10*3/uL (1.4-4.0); Lymphocytes % 26.2 % (21.3-54.2); Mean Corpuscular HGB Conc 31.9 GM/DL (32-36); Mean Corpuscular Volume 97.9 FL (87-102); Mean Platelet Volume 10.4 FL (9.6-12.0); Monocytes % 6.6 % (1.7-12.7); Neutrophils % 58.8 % (38.7-73.9); Platelet Count 213 T/CUMM (130-400); Red Blood Count 2.85 MC/CUMM (3.8-5.5); Red Cell Distribution Width 15.1 % (9.3-17.3); White Blood Count 6.1 T/CUMM (4-12)
[2021-01-01 06:15] LABS: Calcium 8.3 MG/DL (8.5-10.1); Potassium 3.4 MMOL/L (3.5-5.1)
[2021-01-01] MEDS: CIPROFLOXACIN 500 MG TABLET PO SCH (08:00)
[2021-01-01] MEDS: APIXABAN 2.5 MG TABLET PO SCH (08:00)
[2021-01-01] MEDS: PILOCARPINE 5 MG TABLET PO SCH (08:00)
[2021-01-01] MEDS: busPIRone 5 MG TABLET PO SCH (08:01)
[2021-01-01] MEDS: PARoxetine 10 MG TABLET PO SCH (08:01)
[2021-01-01] MEDS: POTASSIUM BICARB EFFERVESCENT 20 MEQ TAB.EFF PO PRN (08:01)
[2021-01-01] MEDS: GABAPENTIN 100 MG CAPSULE PO SCH (08:01)
[2021-01-01] MEDS: ASPIRIN CHEW 81 MG TABLET PO SCH (08:01)
[2021-01-01] MEDS: PANTOPRAZOLE 40 MG TABLET PO SCH (08:01)
[2021-01-01] MEDS: POLYVINYL ALCOHOL 1.4% OPH SOLN 15 ML BOTTLE BOTH EYES SCH ×2 (08:02→12:06)
[2021-01-01] MEDS ORDERED: POTASSIUM CHLORIDE 20 MEQ TABLET PO ONE (08:17)
[2021-01-01] MEDS ORDERED: INFLUENZA VIRUS VACCINE 0.5 ML SYRINGE IM ONE (11:06)
[2021-01-01 11:08] VITALS: BP 102/64
== END 2021-01-01 12:17 | DRG 65 ==
LOC: EDUNIT# → EDBD → N.ED 15:12 → N.EDINP 15:12 → SUATTDRO 17:05 → N.2W 18:21 → SUATTDRO 12-25 12:22 → N.ICU 12-26 08:51
PROVIDERS: ADMIT Internal Medicine; ATTEND Internal Medicine
PROC: CLCCHCL (ICD-10-PCS; 2020-12-26 08:15)

== ENCOUNTER 2021-05-29 10:35 | Inpatient (IN) ==
[2021-05-29] MEDS ORDERED: PANTOPRAZOLE 40 MG VIAL IV STA (10:59)
[2021-05-29 11:35] LABS: INR 1.1; PT Patient Result 11.8 SECS (10.5-12.0)
[2021-05-29 11:47] LABS: Albumin 3.3 G/DL (3.4-5.0); Bilirubin,Total 0.6 MG/DL (0.20-1.00); Calcium 9.3 MG/DL (8.5-10.1); Osmolality,Calculated 277.7 MOS/KG (273-304); Potassium 3.6 MMOL/L (3.5-5.1)
[2021-05-29 11:52] LABS: Basophils # 0.1 10*3/uL (0.0-0.2); Basophils % 0.9 % (0.0-0.8); Eosinophils # 0.3 10*3/uL (0.0-0.87); Eosinophils % 4.3 % (0.00-10.9); Hematocrit 28.4 VOL% (35.7-47.0); Hemoglobin 7.5 GM/DL (12.0-16.0); Immature Granulocytes % 0.5 %; Immature Granulocytes Absolute 0.03 #; Lymphocytes % 33.7 % (21.3-54.2); Mean Corpuscular HGB Conc 26.4 GM/DL (32-36); Mean Corpuscular Volume 64.1 FL (87-102); Mean Platelet Volume 10.1 FL (9.6-12.0); Monocytes % 10.3 % (1.7-12.7); Neutrophils % 50.3 % (38.7-73.9); Platelet Count 402 T/CUMM (130-400); Red Blood Count 4.43 MC/CUMM (3.8-5.5); Red Cell Distribution Width 21.3 % (9.3-17.3); White Blood Count 5.8 T/CUMM (4-12)
[2021-05-29 12:02] LABS: Hypochromia 2+
[2021-05-29 12:03] LABS: Platelet Estimate Adequate
[2021-05-29] MEDS ORDERED: GLUCAGON 1 MG VIAL IM PRN (12:42)
[2021-05-29] MEDS ORDERED: SODIUM CHLORIDE 0.9% 1,000 ML IV PRN (12:48)
[2021-05-29] MEDS ORDERED: DEXTROSE 10% 250 ML BAG IV PRN (12:59)
[2021-05-29] MEDS: ACETAMINOPHEN 325 MG TABLET PO PRN (14:14)
[2021-05-29] MEDS: FERRIC GLUCONATE COMPLEX 125 MG in SODIUM CHLORIDE 0.9% 100 ML IV SCH (18:56)
[2021-05-29] MEDS: ASPIRIN EC 81 MG TABLET PO SCH (19:04)
[2021-05-29] MEDS ORDERED: MELATONIN 3 MG TABLET PO ONE (20:54)
[2021-05-29] MEDS: PANTOPRAZOLE 40 MG TABLET PO SCH (21:09)
[2021-05-30] MEDS ORDERED: HYDROCORTISONE 100 MG VIAL IV ONE (01:31)
[2021-05-30 02:52] LABS: % Iron Saturation 92.9 % (18-50); Ferritin 8.7 ng/mL (8-252)
[2021-05-30 03:02] LABS: Folate 12.82 NG/ML (5.38-24.0); Vitamin B12 332 PG/ML (211-911)
[2021-05-30 03:20] LABS: Calcium 8.4 MG/DL (8.5-10.1); Osmolality,Calculated 277.8 MOS/KG (273-304); Potassium 3.6 MMOL/L (3.5-5.1); Thyroid Stimulating Hormone 1.21 uIU/ml (0.358-3.74)
[2021-05-30] MEDS: ACETAMINOPHEN 325 MG TABLET PO PRN (03:51)
[2021-05-30 05:30] LABS: Basophils # 0.1 10*3/uL (0.0-0.2); Basophils % 0.5 % (0.0-0.8); Eosinophils % 0.1 % (0.00-10.9); Hematocrit 31.5 VOL% (35.7-47.0); Immature Granulocytes % 0.6 %; Lymphocytes # 0.3 10*3/uL (1.4-4.0); Lymphocytes % 1.8 % (21.3-54.2); Mean Corpuscular HGB Conc 29.2 GM/DL (32-36); Mean Corpuscular Volume 67.7 FL (87-102); Mean Platelet Volume 9.6 FL (9.6-12.0); Monocytes % 2.8 % (1.7-12.7); NRBC # 0.06 10*3/uL; Neutrophils % 94.2 % (38.7-73.9); Platelet Count 289 T/CUMM (130-400); Red Blood Count 4.65 MC/CUMM (3.8-5.5); Red Cell Distribution Width 26.2 % (9.3-17.3); White Blood Count 15.5 T/CUMM (4-12)
[2021-05-30 05:33] LABS: Hemoglobin 9.2 GM/DL (12.0-16.0)
[2021-05-30 06:04] LABS: Band Neutrophils 2 % (0-10); Hypochromia 1+; Lymphocytes 4 % (20-55); Microcytosis 2+; Platelet Estimate Normal; Segmented Neutrophils 93 % (50-85); Total Cells Counted 100
[2021-05-30 06:50] LABS: Sedimentation Rate-Westergren 31 MM/HR (0-30)
[2021-05-30] MEDS: FERRIC GLUCONATE COMPLEX 125 MG in SODIUM CHLORIDE 0.9% 100 ML IV SCH (09:37)
[2021-05-30] MEDS: ASPIRIN EC 81 MG TABLET PO SCH (09:37)
[2021-05-30] MEDS: PANTOPRAZOLE 40 MG TABLET PO SCH ×2 (09:37→21:26)
[2021-05-30] MEDS: cefTRIAXone 2,000 MG in SODIUM CHLORIDE 0.9% 100 ML IV SCH (09:38)
[2021-05-30] MEDS: DESITIN 4OZ/NYSTATIN 15 GRAM MIXTURE PASTE TOP SCH ×2 (09:41→21:27)
[2021-05-30 10:58] LABS: Bacteria,Urine Many /HPF (Few); Squamous Epithelial Cell,Urine Many /HPF (0-10)
[2021-05-30 11:08] LABS: Protein,Urine 30 mg/dL (Negative); Urine Appearance Turbid (Clear); Urine Color Yellow (Yellow)
[2021-05-30 11:09] LABS: Bilirubin,Urine Negative (Negative); Blood, Urine Moderate mg/dL (Negative); Glucose,Urine (UA) Negative (Negative); Ketones,Urine Negative (Negative); Nitrite,Urine Negative (Negative); Urine Urobilinogen 0.2 eU/dL (<2.0)
[2021-05-30] MEDS: busPIRone 5 MG TABLET PO SCH ×2 (11:29→21:26)
[2021-05-30] MEDS: MIRTAZAPINE 15 MG TABLET PO SCH (11:33)
[2021-05-30] MEDS: PHENAZOPYRIDINE 95 MG TABLET PO SCH ×2 (11:33→16:06)
[2021-05-30] MEDS: GABAPENTIN 100 MG CAPSULE PO SCH ×2 (16:03→21:26)
[2021-05-30] MEDS: MELATONIN 3 MG TABLET PO PRN (21:26)
[2021-05-31 05:45] LABS: Basophils # 0.1 10*3/uL (0.0-0.2); Basophils % 1.2 % (0.0-0.8); Eosinophils # 0.3 10*3/uL (0.0-0.87); Eosinophils % 5.9 % (0.00-10.9); Hematocrit 29.6 VOL% (35.7-47.0); Immature Granulocytes % 0.6 %; Immature Granulocytes Absolute 0.03 #; Lymphocytes # 1.4 10*3/uL (1.4-4.0); Lymphocytes % 26.6 % (21.3-54.2); Mean Corpuscular Volume 69.2 FL (87-102); Mean Platelet Volume 10.1 FL (9.6-12.0); Monocytes % 10.9 % (1.7-12.7); Neutrophils % 54.8 % (38.7-73.9); Platelet Count 283 T/CUMM (130-400); Red Blood Count 4.28 MC/CUMM (3.8-5.5); Red Cell Distribution Width 26.2 % (9.3-17.3); White Blood Count 5.1 T/CUMM (4-12)
[2021-05-31 05:48] LABS: Osmolality,Calculated 289.8 MOS/KG (273-304); Potassium 3.1 MMOL/L (3.5-5.1)
[2021-05-31 05:49] LABS: Hemoglobin 8.3 GM/DL (12.0-16.0)
[2021-05-31] MEDS: PHENAZOPYRIDINE 95 MG TABLET PO SCH ×3 (09:10→16:35)
[2021-05-31] MEDS: GABAPENTIN 100 MG CAPSULE PO SCH ×3 (09:11→20:54)
[2021-05-31] MEDS: POTASSIUM CHLORIDE 20 MEQ TABLET PO SCH ×3 (10:13→16:35)
[2021-05-31] MEDS: ASPIRIN EC 81 MG TABLET PO SCH (12:10)
[2021-05-31] MEDS: PANTOPRAZOLE 40 MG TABLET PO SCH ×2 (12:11→20:54)
[2021-05-31] MEDS: busPIRone 5 MG TABLET PO SCH ×2 (12:11→20:54)
[2021-05-31] MEDS: cefTRIAXone 2,000 MG in SODIUM CHLORIDE 0.9% 100 ML IV SCH (12:12)
[2021-05-31] MEDS: DESITIN 4OZ/NYSTATIN 15 GRAM MIXTURE PASTE TOP SCH ×2 (12:13→20:57)
[2021-05-31] MEDS ORDERED: POTASSIUM CHLORIDE 20 MEQ TABLET PO ONE (15:49)
[2021-05-31] MEDS ORDERED: FERRIC GLUCONATE COMPLEX 125 MG in SODIUM CHLORIDE 0.9% 100 ML IV ONE (15:54)
[2021-05-31] MEDS: MELATONIN 3 MG TABLET PO PRN (20:54)
[2021-05-31] MEDS: ACETAMINOPHEN 325 MG TABLET PO PRN (20:56)
[2021-06-01 05:49] LABS: Calcium 9.2 MG/DL (8.5-10.1); Potassium 5.1 MMOL/L (3.5-5.1)
[2021-06-01 05:50] LABS: Basophils # 0.1 10*3/uL (0.0-0.2); Basophils % 0.8 % (0.0-0.8); Eosinophils # 0.5 10*3/uL (0.0-0.87); Eosinophils % 6.3 % (0.00-10.9); Hematocrit 30.4 VOL% (35.7-47.0); Immature Granulocytes % 0.7 %; Immature Granulocytes Absolute 0.05 #; Lymphocytes # 2.6 10*3/uL (1.4-4.0); Lymphocytes % 35.6 % (21.3-54.2); Mean Corpuscular Volume 70.4 FL (87-102); Mean Platelet Volume 9.7 FL (9.6-12.0); Monocytes % 10.8 % (1.7-12.7); NRBC # 0.04 10*3/uL; Neutrophils % 45.8 % (38.7-73.9); Platelet Count 289 T/CUMM (130-400); Red Blood Count 4.32 MC/CUMM (3.8-5.5); Red Cell Distribution Width 27.3 % (9.3-17.3); White Blood Count 7.2 T/CUMM (4-12)
[2021-06-01 05:51] LABS: Hemoglobin 8.5 GM/DL (12.0-16.0)
[2021-06-01 05:56] LABS: Eosinophils 6 % (0-10); Hypochromia 1+; Lymphocytes 31 % (20-55); Microcytosis 1+; Platelet Estimate Adequate; Segmented Neutrophils 56 % (50-85); Total Cells Counted 100
[2021-06-01] MEDS: traMADol 50 MG TABLET PO PRN ×3 (07:13→21:37)
[2021-06-01] MEDS: PANTOPRAZOLE 40 MG TABLET PO SCH ×2 (09:59→21:37)
[2021-06-01] MEDS: MIRTAZAPINE 15 MG TABLET PO SCH (09:59)
[2021-06-01] MEDS: busPIRone 5 MG TABLET PO SCH ×2 (09:59→21:37)
[2021-06-01] MEDS: GABAPENTIN 100 MG CAPSULE PO SCH ×3 (09:59→21:37)
[2021-06-01] MEDS: ASPIRIN EC 81 MG TABLET PO SCH (10:00)
[2021-06-01] MEDS: PHENAZOPYRIDINE 95 MG TABLET PO SCH ×3 (10:00→17:14)
[2021-06-01] MEDS: cefTRIAXone 2,000 MG in SODIUM CHLORIDE 0.9% 100 ML IV SCH (10:01)
[2021-06-01] MEDS: DESITIN 4OZ/NYSTATIN 15 GRAM MIXTURE PASTE TOP SCH ×2 (10:12→21:39)
[2021-06-01 11:01] LABS: Hemoglobin A1 (Alkaline) 98.2 % (96.5-98.5); Hemoglobin A2 (Alkaline) 1.8 % (1.5-3.5)
[2021-06-01] MEDS: MELATONIN 3 MG TABLET PO PRN (21:37)
[2021-06-02] MEDS: ACETAMINOPHEN 325 MG TABLET PO PRN (02:37)
[2021-06-02 06:04] LABS: Basophils # 0.1 10*3/uL (0.0-0.2); Basophils % 0.8 % (0.0-0.8); Eosinophils # 0.5 10*3/uL (0.0-0.87); Eosinophils % 6.8 % (0.00-10.9); Hemoglobin 8.7 GM/DL (12.0-16.0); Immature Granulocytes % 0.8 %; Immature Granulocytes Absolute 0.06 #; Lymphocytes # 2.1 10*3/uL (1.4-4.0); Lymphocytes % 28.7 % (21.3-54.2); Mean Corpuscular HGB Conc 28.5 GM/DL (32-36); Mean Corpuscular Volume 71.1 FL (87-102); Mean Platelet Volume 9.8 FL (9.6-12.0); Monocytes % 9.3 % (1.7-12.7); Neutrophils % 53.6 % (38.7-73.9); Platelet Count 290 T/CUMM (130-400); Red Blood Count 4.29 MC/CUMM (3.8-5.5); Red Cell Distribution Width 28.6 % (9.3-17.3); White Blood Count 7.4 T/CUMM (4-12)
[2021-06-02 06:05] LABS: Hematocrit 30.5 VOL% (35.7-47.0)
[2021-06-02 06:09] LABS: Calcium 9.3 MG/DL (8.5-10.1); Osmolality,Calculated 279.5 MOS/KG (273-304); Potassium 4.4 MMOL/L (3.5-5.1)
[2021-06-02] MEDS: busPIRone 5 MG TABLET PO SCH ×2 (09:50→20:52)
[2021-06-02] MEDS: PHENAZOPYRIDINE 95 MG TABLET PO SCH ×3 (09:50→17:09)
[2021-06-02] MEDS: PANTOPRAZOLE 40 MG TABLET PO SCH ×2 (09:51→20:52)
[2021-06-02] MEDS: CHOLECALCIFEROL 5,000 UNIT TABLET PO SCH (09:51)
[2021-06-02] MEDS: GABAPENTIN 100 MG CAPSULE PO SCH ×3 (09:51→20:52)
[2021-06-02] MEDS: ASPIRIN EC 81 MG TABLET PO SCH (09:52)
[2021-06-02] MEDS: cefTRIAXone 2,000 MG in SODIUM CHLORIDE 0.9% 100 ML IV SCH (09:52)
[2021-06-02] MEDS: DESITIN 4OZ/NYSTATIN 15 GRAM MIXTURE PASTE TOP SCH ×2 (09:54→20:53)
[2021-06-02] MEDS: traMADol 50 MG TABLET PO PRN ×2 (10:40→20:52)
[2021-06-03 05:21] LABS: Calcium 9.1 MG/DL (8.5-10.1); Osmolality,Calculated 280.5 MOS/KG (273-304); Potassium 4.2 MMOL/L (3.5-5.1)
[2021-06-03 05:36] LABS: Basophils # 0.1 10*3/uL (0.0-0.2); Eosinophils # 0.4 10*3/uL (0.0-0.87); Eosinophils % 6.6 % (0.00-10.9); Hemoglobin 9.1 GM/DL (12.0-16.0); Immature Granulocytes % 0.8 %; Immature Granulocytes Absolute 0.05 #; Lymphocytes # 1.6 10*3/uL (1.4-4.0); Lymphocytes % 26.6 % (21.3-54.2); Mean Corpuscular HGB Conc 28.3 GM/DL (32-36); Mean Platelet Volume 10.1 FL (9.6-12.0); Monocytes % 8.9 % (1.7-12.7); Neutrophils % 56.1 % (38.7-73.9); Platelet Count 293 T/CUMM (130-400); Red Blood Count 4.52 MC/CUMM (3.8-5.5); Red Cell Distribution Width 29.9 % (9.3-17.3); White Blood Count 6.1 T/CUMM (4-12)
[2021-06-03 05:40] LABS: Hematocrit 32.1 VOL% (35.7-47.0)
[2021-06-03 05:57] LABS: Hypochromia 2+; Microcytosis 2+
[2021-06-03 05:58] LABS: Platelet Estimate Normal; Polychromasia Slight
[2021-06-03] MEDS: PHENAZOPYRIDINE 95 MG TABLET PO SCH ×3 (08:27→16:34)
[2021-06-03] MEDS: CHOLECALCIFEROL 5,000 UNIT TABLET PO SCH (08:27)
[2021-06-03] MEDS: PANTOPRAZOLE 40 MG TABLET PO SCH ×2 (08:27→21:07)
[2021-06-03] MEDS: MIRTAZAPINE 15 MG TABLET PO SCH (08:27)
[2021-06-03] MEDS: busPIRone 5 MG TABLET PO SCH ×2 (08:27→21:07)
[2021-06-03] MEDS: GABAPENTIN 100 MG CAPSULE PO SCH ×3 (08:27→21:07)
[2021-06-03] MEDS: ASPIRIN EC 81 MG TABLET PO SCH (08:27)
[2021-06-03] MEDS: DESITIN 4OZ/NYSTATIN 15 GRAM MIXTURE PASTE TOP SCH ×2 (08:28→21:08)
[2021-06-03] MEDS: traMADol 50 MG TABLET PO PRN (08:36)
[2021-06-03] MEDS: cefTRIAXone 2,000 MG in SODIUM CHLORIDE 0.9% 100 ML IV SCH (08:40)
[2021-06-03] MEDS: POLYETHYLENE GLYCOL POWDER 17 GM PACK PO SCH (11:28)
[2021-06-03] MEDS: BETHANECHOL 10 MG TABLET PO SCH ×2 (11:28→11:48)
[2021-06-03] MEDS: MORPHINE 2 MG/1 ML SYRINGE IV PRN ×2 (13:02→18:57)
[2021-06-03] MEDS: MELATONIN 3 MG TABLET PO PRN (21:07)
[2021-06-04 05:33] LABS: Calcium 9.2 MG/DL (8.5-10.1); Osmolality,Calculated 283.5 MOS/KG (273-304); Potassium 3.9 MMOL/L (3.5-5.1)
[2021-06-04 05:45] LABS: Basophils # 0.1 10*3/uL (0.0-0.2); Basophils % 0.8 % (0.0-0.8); Eosinophils # 0.4 10*3/uL (0.0-0.87); Eosinophils % 6.1 % (0.00-10.9); Hemoglobin 9.4 GM/DL (12.0-16.0); Immature Granulocytes % 0.5 %; Immature Granulocytes Absolute 0.03 #; Lymphocytes # 1.5 10*3/uL (1.4-4.0); Lymphocytes % 23.3 % (21.3-54.2); Mean Corpuscular HGB Conc 27.9 GM/DL (32-36); Mean Corpuscular Volume 72.9 FL (87-102); Mean Platelet Volume 9.7 FL (9.6-12.0); Monocytes % 8.2 % (1.7-12.7); Neutrophils % 61.1 % (38.7-73.9); Platelet Count 281 T/CUMM (130-400); Red Blood Count 4.62 MC/CUMM (3.8-5.5); Red Cell Distribution Width 30.6 % (9.3-17.3); White Blood Count 6.4 T/CUMM (4-12)
[2021-06-04 05:46] LABS: Hematocrit 33.7 VOL% (35.7-47.0)
[2021-06-04 06:06] LABS: Hypochromia 1+
[2021-06-04 06:07] LABS: Microcytosis 2+; Platelet Estimate Normal; Polychromasia Slight
[2021-06-04] MEDS: BETHANECHOL 10 MG TABLET PO SCH ×2 (08:48→23:01)
[2021-06-04] MEDS: PANTOPRAZOLE 40 MG TABLET PO SCH ×2 (08:48→22:08)
[2021-06-04] MEDS: PHENAZOPYRIDINE 95 MG TABLET PO SCH ×3 (08:48→16:02)
[2021-06-04] MEDS: ASPIRIN EC 81 MG TABLET PO SCH (08:49)
[2021-06-04] MEDS: busPIRone 5 MG TABLET PO SCH ×2 (08:49→22:08)
[2021-06-04] MEDS: GABAPENTIN 100 MG CAPSULE PO SCH ×3 (08:49→22:08)
[2021-06-04] MEDS: CHOLECALCIFEROL 5,000 UNIT TABLET PO SCH (08:49)
[2021-06-04] MEDS: MORPHINE 2 MG/1 ML SYRINGE IV PRN ×2 (08:50→22:08)
[2021-06-04] MEDS: POLYETHYLENE GLYCOL POWDER 17 GM PACK PO SCH (08:50)
[2021-06-04] MEDS: DESITIN 4OZ/NYSTATIN 15 GRAM MIXTURE PASTE TOP SCH ×2 (08:51→23:01)
[2021-06-04] MEDS: cefTRIAXone 2,000 MG in SODIUM CHLORIDE 0.9% 100 ML IV SCH (08:59)
[2021-06-04] MEDS: MELATONIN 3 MG TABLET PO PRN (22:09)
[2021-06-05] MEDS: ASPIRIN EC 81 MG TABLET PO SCH (09:25)
[2021-06-05] MEDS: CHOLECALCIFEROL 5,000 UNIT TABLET PO SCH (09:25)
[2021-06-05] MEDS: traMADol 50 MG TABLET PO PRN (09:25)
[2021-06-05] MEDS: GABAPENTIN 100 MG CAPSULE PO SCH ×3 (09:25→21:35)
[2021-06-05] MEDS: busPIRone 5 MG TABLET PO SCH ×2 (09:25→21:36)
[2021-06-05] MEDS: PANTOPRAZOLE 40 MG TABLET PO SCH ×2 (09:25→21:35)
[2021-06-05] MEDS: PHENAZOPYRIDINE 95 MG TABLET PO SCH ×3 (09:25→17:17)
[2021-06-05] MEDS: BETHANECHOL 10 MG TABLET PO SCH ×2 (09:25→21:37)
[2021-06-05] MEDS: POLYETHYLENE GLYCOL POWDER 17 GM PACK PO SCH (09:26)
[2021-06-05] MEDS: DESITIN 4OZ/NYSTATIN 15 GRAM MIXTURE PASTE TOP SCH ×2 (09:26→21:36)
[2021-06-05] MEDS: cefTRIAXone 2,000 MG in SODIUM CHLORIDE 0.9% 100 ML IV SCH (09:26)
[2021-06-05] MEDS: MIRTAZAPINE 15 MG TABLET PO SCH (09:28)
[2021-06-05] MEDS: INSULIN LISPRO 100 UNIT/ML SUBCUT SCH ×3 (12:58→21:37)
[2021-06-05] MEDS: PARoxetine 10 MG TABLET PO SCH (12:59)
[2021-06-05 14:11] LABS: Alanine Aminotransferase 14 U/L (13-56); Albumin 3.1 G/DL (3.4-5.0); Alkaline Phosphatase 103 U/L (45-117); Aspartate Amino Transferase 25 U/L (0-37); Bilirubin,Total < 0.39 MG/DL (0.20-1.00); Blood Urea Nitrogen 10 MG/DL (7-18); Calcium 9.7 MG/DL (8.5-10.1); Carbon Dioxide 25 MMOL/L (21-32); Estimated Glom Filtration Rate 60 ML/MIN; Glucose 224 MG/DL (74-106); Osmolality,Calculated 286.3 MOS/KG (273-304); Potassium 3.9 MMOL/L (3.5-5.1); Sodium 141 MMOL/L (136-145); Total Protein 7.2 G/DL (6.4-8.2)
[2021-06-05 14:37] LABS: Basophils # 0.1 10*3/uL (0.0-0.2); Basophils % 1.1 % (0.0-0.8); Eosinophils # 0.3 10*3/uL (0.0-0.87); Eosinophils % 5.1 % (0.00-10.9); Hematocrit 35.9 VOL% (35.7-47.0); Hemoglobin 10.1 GM/DL (12.0-16.0); Immature Granulocytes % 0.4 %; Immature Granulocytes Absolute 0.02 #; Lymphocytes # 1.6 10*3/uL (1.4-4.0); Lymphocytes % 29.6 % (21.3-54.2); Mean Corpuscular HGB Conc 28.1 GM/DL (32-36); Mean Corpuscular Volume 72.7 FL (87-102); Mean Platelet Volume 10.5 FL (9.6-12.0); Monocytes % 9.4 % (1.7-12.7); Neutrophils % 54.4 % (38.7-73.9); Platelet Count 334 T/CUMM (130-400); Red Blood Count 4.94 MC/CUMM (3.8-5.5); Red Cell Distribution Width 31.2 % (9.3-17.3); White Blood Count 5.3 T/CUMM (4-12)
[2021-06-05] MEDS ORDERED: AMITRIPTYLINE 25 MG TABLET PO SCH (21:00)
[2021-06-05] MEDS: MELATONIN 3 MG TABLET PO PRN (21:35)
[2021-06-05] MEDS: MORPHINE 2 MG/1 ML SYRINGE IV PRN (21:46)
[2021-06-06 07:43] VITALS: BP 124/51
[2021-06-06] MEDS: BETHANECHOL 10 MG TABLET PO SCH (09:15)
[2021-06-06] MEDS: ASPIRIN EC 81 MG TABLET PO SCH (09:15)
[2021-06-06] MEDS: PHENAZOPYRIDINE 95 MG TABLET PO SCH (09:15)
[2021-06-06] MEDS: PARoxetine 10 MG TABLET PO SCH (09:15)
[2021-06-06] MEDS: CHOLECALCIFEROL 5,000 UNIT TABLET PO SCH (09:15)
[2021-06-06] MEDS: GABAPENTIN 100 MG CAPSULE PO SCH (09:16)
[2021-06-06] MEDS: PANTOPRAZOLE 40 MG TABLET PO SCH (09:16)
[2021-06-06] MEDS: busPIRone 5 MG TABLET PO SCH (09:16)
[2021-06-06] MEDS: INSULIN LISPRO 100 UNIT/ML SUBCUT SCH (09:19)
[2021-06-06] MEDS: POLYETHYLENE GLYCOL POWDER 17 GM PACK PO SCH (09:20)
[2021-06-06] MEDS: DESITIN 4OZ/NYSTATIN 15 GRAM MIXTURE PASTE TOP SCH (09:22)
[2021-06-06] MEDS: cefTRIAXone 2,000 MG in SODIUM CHLORIDE 0.9% 100 ML IV SCH (09:22)
== END 2021-06-06 11:30 | DRG 812 ==
LOC: N.ED 10:35 → N.5E 10:35 → SUATTDRO 12:22 → N.5E 14:35 → SUATTDRO 05-30 08:44
PROVIDERS: ADMIT Hospitalist; ATTEND Internal Medicine

== ENCOUNTER 2021-09-29 12:10 | Inpatient (IN) ==
[2021-09-29 13:43] LABS: INR 1.1; PT Patient Result 11.9 SECS (10.5-12.0); Partial Thromboplastin Time 29.9 SECS (23.7-32.9)
[2021-09-29 13:52] LABS: Basophils # 0.1 10*3/uL (0.0-0.2); Basophils % 0.7 % (0.0-0.8); Eosinophils % 0.4 % (0.00-10.9); Hematocrit 42.1 VOL% (35.7-47.0); Hemoglobin 12.4 GM/DL (12.0-16.0); Immature Granulocytes % 0.5 %; Immature Granulocytes Absolute 0.05 #; Lymphocytes # 1.6 10*3/uL (1.4-4.0); Lymphocytes % 15.6 % (21.3-54.2); Mean Corpuscular HGB Conc 29.5 GM/DL (32-36); Mean Corpuscular Volume 73.1 FL (87-102); Mean Platelet Volume 10.2 FL (9.6-12.0); Monocytes # 0.8 10*3/uL (0.11-0.8); Monocytes % 7.2 % (1.7-12.7); Neutrophils % 75.6 % (38.7-73.9); Platelet Count 446 T/CUMM (130-400); Red Blood Count 5.76 MC/CUMM (3.8-5.5); Red Cell Distribution Width 23.1 % (9.3-17.3); White Blood Count 10.4 T/CUMM (4-12)
[2021-09-29] MEDS ORDERED: cefTRIAXone 1,000 MG in SODIUM CHLORIDE 0.9% 100 ML IV STA (14:01)
[2021-09-29] MEDS ORDERED: LACTATED RINGERS 1,000 ML IV ONE (14:02)
[2021-09-29 14:04] LABS: Albumin 3.7 G/DL (3.4-5.0); Bilirubin,Total 0.4 MG/DL (0.20-1.00); Calcium 10.6 MG/DL (8.5-10.1); Potassium 3.7 MMOL/L (3.5-5.1); Total Protein 7.6 G/DL (6.4-8.2)
[2021-09-29 14:18] LABS: Anisocytosis 2+; Hypochromia 2+; Microcytosis 1+
[2021-09-29 14:19] LABS: Platelet Estimate Increased
[2021-09-29] MEDS ORDERED: SODIUM CHLORIDE 0.9% 1,000 ML IV STA (15:27)
[2021-09-29] MEDS ORDERED: ONDANSETRON 4 MG/2 ML VIAL IV PRN (15:40)
[2021-09-29] MEDS ORDERED: ACETAMINOPHEN 325 MG TABLET PO PRN (15:40)
[2021-09-29] MEDS ORDERED: GLUCAGON 1 MG VIAL IM PRN (15:40)
[2021-09-29] MEDS ORDERED: DEXTROSE 50% 25 GM/50 ML VIAL IV PRN (15:40)
[2021-09-29 15:41] LABS: RBC,Urine 14 /HPF (0-4)
[2021-09-29 15:42] LABS: Bilirubin,Urine Negative (Negative); Blood, Urine Moderate mg/dL (Negative); Glucose,Urine (UA) Negative (Negative); Ketones,Urine Negative (Negative); Nitrite,Urine Negative (Negative); Protein,Urine Trace mg/dL (Negative); Urine Appearance Cloudy (Clear); Urine Color Yellow (Yellow); Urine Specific Gravity 1.015 (1.001-1.035); Urine Urobilinogen 0.2 eU/dL (<2.0)
[2021-09-29] MEDS ORDERED: MAGNESIUM SULF RIDER 2 GM/50 ML PREMIX IV ONE (15:43)
[2021-09-29] MEDS ORDERED: DEXTROSE 10% 250 ML BAG IV PRN (15:45)
[2021-09-29] MEDS ORDERED: MAGNESIUM HYDROXIDE SUSP 30 ML UDCUP PO PRN (16:15)
[2021-09-29] MEDS ORDERED: guaiFENesin 200 MG/10 ML UDCUP PO PRN (16:15)
[2021-09-29] MEDS ORDERED: CARBOXYMETHYLCELLULOSE 1% OPH SOLN BOTH EYES PRN (16:28)
[2021-09-29] MEDS ORDERED: LOPERAMIDE 2 MG CAPSULE PO PRN (16:31)
[2021-09-29] MEDS: CARBOXYMETHYLCELLULOSE 1% OPH SOLN BOTH EYES SCH ×2 (18:17→21:10)
[2021-09-29] MEDS: traMADol 50 MG TABLET PO SCH ×2 (18:17→21:06)
[2021-09-29] MEDS: INSULIN REGULAR 100 UNIT/ML SUBCUT SCH ×2 (18:17→21:02)
[2021-09-29] MEDS: ALBUTEROL 2.5 MG/3 ML NEB RESP TX SCH (19:26)
[2021-09-29] MEDS: ENOXAPARIN 30 MG/0.3 ML SYRINGE SUBCUT SCH (21:03)
[2021-09-29] MEDS: MIRTAZAPINE 15 MG TABLET PO SCH (21:04)
[2021-09-29] MEDS: MULTIVITAMIN (OCUVITE) TABLET PO SCH (21:05)
[2021-09-29] MEDS: PILOCARPINE 5 MG TABLET PO SCH (21:05)
[2021-09-29] MEDS: MONTELUKAST 10 MG TABLET PO SCH (21:05)
[2021-09-29] MEDS: GABAPENTIN 100 MG CAPSULE PO SCH (21:05)
[2021-09-29] MEDS: METHENAMINE HIPPURATE 1 GM TABLET PO SCH (21:05)
[2021-09-29] MEDS: AMITRIPTYLINE 25 MG TABLET PO SCH (21:08)
[2021-09-29] MEDS: busPIRone 5 MG TABLET PO SCH (21:08)
[2021-09-29] MEDS: BETHANECHOL 10 MG TABLET PO SCH (21:13)
[2021-09-29] MEDS: ZINC OXIDE 16% PASTE 57 GM TUBE TOP SCH (21:17)
[2021-09-29] MEDS: MELATONIN 3 MG TABLET PO SCH (21:17)
[2021-09-30] MEDS: ALBUTEROL 2.5 MG/3 ML NEB RESP TX SCH ×4 (00:36→19:23)
[2021-09-30 01:00] LABS: Basophils # 0.1 10*3/uL (0.0-0.2); Basophils % 0.6 % (0.0-0.8); Eosinophils # 0.1 10*3/uL (0.0-0.87); Eosinophils % 0.7 % (0.00-10.9); Hematocrit 33.5 VOL% (35.7-47.0); Hemoglobin 10.1 GM/DL (12.0-16.0); Immature Granulocytes % 0.2 %; Immature Granulocytes Absolute 0.02 #; Lymphocytes # 2.6 10*3/uL (1.4-4.0); Lymphocytes % 25.1 % (21.3-54.2); Mean Corpuscular HGB Conc 30.1 GM/DL (32-36); Mean Corpuscular Volume 71.4 FL (87-102); Mean Platelet Volume 9.2 FL (9.6-12.0); Monocytes # 0.8 10*3/uL (0.11-0.8); Neutrophils % 65.4 % (38.7-73.9); Platelet Count 327 T/CUMM (130-400); Red Blood Count 4.69 MC/CUMM (3.8-5.5); Red Cell Distribution Width 22.1 % (9.3-17.3); White Blood Count 10.4 T/CUMM (4-12)
[2021-09-30 01:25] LABS: Alanine Aminotransferase 14 U/L (13-56); Alkaline Phosphatase 82 U/L (45-117); Aspartate Amino Transferase 15 U/L (0-37); Bilirubin,Total < 0.39 MG/DL (0.20-1.00); Blood Urea Nitrogen 12 MG/DL (7-18); Calcium 9.5 MG/DL (8.5-10.1); Carbon Dioxide 24 MMOL/L (21-32); Chloride 112 MMOL/L (98-107); Glucose 117 MG/DL (74-106); Osmolality,Calculated 277.5 MOS/KG (273-304); Potassium 3.3 MMOL/L (3.5-5.1); Sodium 139 MMOL/L (136-145); Total Protein 6.4 G/DL (6.4-8.2)
[2021-09-30] MEDS: INSULIN REGULAR 100 UNIT/ML SUBCUT SCH ×4 (08:06→20:20)
[2021-09-30] MEDS: BETHANECHOL 10 MG TABLET PO SCH ×2 (08:40→22:19)
[2021-09-30] MEDS: SODIUM CHLORIDE 0.9% 1,000 ML IV SCH ×2 (08:40→23:06)
[2021-09-30] MEDS: MULTIVITAMIN (OCUVITE) TABLET PO SCH ×2 (08:40→22:19)
[2021-09-30] MEDS: busPIRone 5 MG TABLET PO SCH ×2 (08:41→22:20)
[2021-09-30] MEDS: CHOLECALCIFEROL 5,000 UNIT TABLET PO SCH (08:41)
[2021-09-30] MEDS: CETIRIZINE 10 MG TABLET PO SCH (08:41)
[2021-09-30] MEDS: METHENAMINE HIPPURATE 1 GM TABLET PO SCH ×2 (08:41→22:20)
[2021-09-30] MEDS: traMADol 50 MG TABLET PO SCH ×4 (08:41→22:18)
[2021-09-30] MEDS: MULTIVITAMIN (CENTRUM) TABLET PO SCH (08:42)
[2021-09-30] MEDS: GABAPENTIN 100 MG CAPSULE PO SCH ×3 (08:42→22:20)
[2021-09-30] MEDS: BACILLUS COAGULANS CAPLET PO SCH (08:42)
[2021-09-30] MEDS: ASPIRIN EC 81 MG TABLET PO SCH (08:42)
[2021-09-30] MEDS: ZINC OXIDE 16% PASTE 57 GM TUBE TOP SCH ×2 (08:42→22:17)
[2021-09-30] MEDS: PARoxetine 10 MG TABLET PO SCH (08:42)
[2021-09-30] MEDS: PILOCARPINE 5 MG TABLET PO SCH ×3 (08:42→22:18)
[2021-09-30] MEDS: PANTOPRAZOLE 40 MG TABLET PO SCH (08:42)
[2021-09-30] MEDS: CARBOXYMETHYLCELLULOSE 1% OPH SOLN BOTH EYES SCH ×4 (08:43→22:24)
[2021-09-30] MEDS: cefTRIAXone 2,000 MG in SODIUM CHLORIDE 0.9% 100 ML IV SCH (08:53)
[2021-09-30] MEDS: AMITRIPTYLINE 10 MG TABLET PO SCH (08:53)
[2021-09-30] MEDS ORDERED: MIRTAZAPINE 15 MG TABLET PO SCH (21:00)
[2021-09-30] MEDS: MELATONIN 3 MG TABLET PO SCH (22:19)
[2021-09-30] MEDS: AMITRIPTYLINE 25 MG TABLET PO SCH (22:19)
[2021-09-30] MEDS: MONTELUKAST 10 MG TABLET PO SCH (22:20)
[2021-09-30] MEDS: MIRTAZAPINE 15 MG TABLET PO SCH (22:24)
[2021-09-30] MEDS: ENOXAPARIN 30 MG/0.3 ML SYRINGE SUBCUT SCH (22:26)
[2021-10-01] MEDS: ALBUTEROL 2.5 MG/3 ML NEB RESP TX SCH ×3 (01:07→14:28)
[2021-10-01 05:30] LABS: Basophils % 0.5 % (0.0-0.8); Eosinophils # 0.3 10*3/uL (0.0-0.87); Eosinophils % 4.6 % (0.00-10.9); Hematocrit 32.5 VOL% (35.7-47.0); Hemoglobin 9.7 GM/DL (12.0-16.0); Immature Granulocytes % 0.3 %; Immature Granulocytes Absolute 0.02 #; Lymphocytes # 2.1 10*3/uL (1.4-4.0); Lymphocytes % 33.7 % (21.3-54.2); Mean Corpuscular HGB Conc 29.8 GM/DL (32-36); Mean Corpuscular Volume 72.4 FL (87-102); Mean Platelet Volume 9.8 FL (9.6-12.0); Monocytes # 0.5 10*3/uL (0.11-0.8); Monocytes % 8.4 % (1.7-12.7); Neutrophils % 52.5 % (38.7-73.9); Platelet Count 281 T/CUMM (130-400); Red Blood Count 4.49 MC/CUMM (3.8-5.5); Red Cell Distribution Width 22.2 % (9.3-17.3); White Blood Count 6.3 T/CUMM (4-12)
[2021-10-01 05:50] LABS: Calcium 9.5 MG/DL (8.5-10.1); Osmolality,Calculated 286.7 MOS/KG (273-304); Potassium 3.4 MMOL/L (3.5-5.1)
[2021-10-01] MEDS: INSULIN REGULAR 100 UNIT/ML SUBCUT SCH ×2 (08:02→11:37)
[2021-10-01] MEDS: traMADol 50 MG TABLET PO SCH ×2 (09:05→12:09)
[2021-10-01] MEDS: CETIRIZINE 10 MG TABLET PO SCH (09:05)
[2021-10-01] MEDS: CHOLECALCIFEROL 5,000 UNIT TABLET PO SCH (09:05)
[2021-10-01] MEDS: PANTOPRAZOLE 40 MG TABLET PO SCH (09:06)
[2021-10-01] MEDS: BACILLUS COAGULANS CAPLET PO SCH (09:06)
[2021-10-01] MEDS: busPIRone 5 MG TABLET PO SCH (09:06)
[2021-10-01] MEDS: AMITRIPTYLINE 10 MG TABLET PO SCH (09:06)
[2021-10-01] MEDS: PARoxetine 10 MG TABLET PO SCH (09:06)
[2021-10-01] MEDS: BETHANECHOL 10 MG TABLET PO SCH (09:06)
[2021-10-01] MEDS: PILOCARPINE 5 MG TABLET PO SCH (09:06)
[2021-10-01] MEDS: METHENAMINE HIPPURATE 1 GM TABLET PO SCH (09:06)
[2021-10-01] MEDS: MULTIVITAMIN (CENTRUM) TABLET PO SCH (09:06)
[2021-10-01] MEDS: GABAPENTIN 100 MG CAPSULE PO SCH (09:06)
[2021-10-01] MEDS: MULTIVITAMIN (OCUVITE) TABLET PO SCH (09:06)
[2021-10-01] MEDS: ASPIRIN EC 81 MG TABLET PO SCH (09:06)
[2021-10-01] MEDS: cefTRIAXone 2,000 MG in SODIUM CHLORIDE 0.9% 100 ML IV SCH (09:07)
[2021-10-01] MEDS: CARBOXYMETHYLCELLULOSE 1% OPH SOLN BOTH EYES SCH ×2 (09:07→12:09)
[2021-10-01] MEDS: ZINC OXIDE 16% PASTE 57 GM TUBE TOP SCH (09:07)
[2021-10-01] MEDS ORDERED: PHENAZOPYRIDINE 95 MG TABLET PO SCH (12:00)
[2021-10-01 12:29] VITALS: BP 165/75
== END 2021-10-01 14:28 | DRG 690 ==
LOC: EDUNIT# → EDBD → N.ED 12:10 → N.EDINP 12:10 → SUATTDRO 15:40 → N.5E 16:19
PROVIDERS: ADMIT Internal Medicine; ATTEND Internal Medicine

== ENCOUNTER 2022-02-21 11:16 | Inpatient (IN) ==
[2022-02-21] MEDS ORDERED: SODIUM CHLORIDE 0.9% 1,000 ML IV STA ×2 (12:13→15:23)
[2022-02-21] MEDS ORDERED: LEVOFLOXACIN INJ 750 MG/150 ML PREMIX IV STA (12:16)
[2022-02-21 12:27] LABS: INR 1.1; PT Patient Result 12.1 SECS (10.1-12.1); Partial Thromboplastin Time 23.9 SECS (23.7-32.9)
[2022-02-21 12:37] LABS: Barbiturates Screen,Urine Negative (Negative); Benzodiazepines Screen,Urine Negative (Negative); Cannabinoid Screen,Urine Negative (Negative); Opiate Screen,Urine Negative (Negative); Phencyclidine Screen,Urine Negative (Negative)
[2022-02-21 12:41] LABS: RBC,Urine 20 /HPF (0-4); Squamous Epithelial Cell,Urine Occasional /HPF (0-10); Urine Appearance Cloudy (Clear); Urine Color Yellow (Yellow); Urine Specific Gravity 1.015 (1.001-1.035); Urine pH 5.5 (4.5-8.0)
[2022-02-21 12:42] LABS: Bilirubin,Urine Negative (Negative); Blood, Urine Moderate mg/dL (Negative); Glucose,Urine (UA) Negative (Negative); Ketones,Urine Negative (Negative); Nitrite,Urine Negative (Negative); Protein,Urine 30 mg/dL (Negative); Urine Urobilinogen 0.2 eU/dL (<2.0)
[2022-02-21 12:42] LABS: Basophils % 0.5 % (0.0-0.8); Eosinophils # 0.1 10*3/uL (0.0-0.87); Hematocrit 41.4 VOL% (35.7-47.0); Hemoglobin 12.5 GM/DL (12.0-16.0); Immature Granulocytes % 0.3 %; Immature Granulocytes Absolute 0.02 #; Lymphocytes # 1.6 10*3/uL (1.4-4.0); Lymphocytes % 21.3 % (21.3-54.2); Mean Corpuscular HGB Conc 30.2 GM/DL (32-36); Mean Corpuscular Volume 79.2 FL (87-102); Mean Platelet Volume 10.9 FL (9.6-12.0); Monocytes # 0.4 10*3/uL (0.11-0.8); Monocytes % 4.9 % (1.7-12.7); Platelet Count 318 T/CUMM (130-400); Red Blood Count 5.23 MC/CUMM (3.8-5.5); Red Cell Distribution Width 24.9 % (9.3-17.3); White Blood Count 7.3 T/CUMM (4-12)
[2022-02-21 12:44] LABS: Platelet Estimate Normal
[2022-02-21 12:45] LABS: Anisocytosis 1+; Macrocytosis Slight
[2022-02-21 13:18] LABS: Alanine Aminotransferase 19 U/L (13-56); Alkaline Phosphatase 67 U/L (45-117); Aspartate Amino Transferase 18 U/L (0-37); Blood Urea Nitrogen 15 MG/DL (7-18); Calcium 9.1 MG/DL (8.5-10.1); Carbon Dioxide 22 MMOL/L (21-32); Chloride 113 MMOL/L (98-107); Glucose 156 MG/DL (74-106); Potassium 3.8 MMOL/L (3.5-5.1); Sodium 143 MMOL/L (136-145); Total Protein 6.3 G/DL (6.4-8.2)
[2022-02-21] MEDS ORDERED: ONDANSETRON 4 MG/2 ML VIAL IV PRN (18:44)
[2022-02-21] MEDS ORDERED: ACETAMINOPHEN 325 MG TABLET PO PRN (18:44)
[2022-02-21] MEDS ORDERED: ZALEPLON 5 MG CAPSULE PO PRN (18:44)
[2022-02-21] MEDS ORDERED: hydrALAZINE 20 MG/1 ML VIAL IV PRN (18:44)
[2022-02-21] MEDS ORDERED: ALBUTEROL 2.5 MG/3 ML NEB RESP TX PRN (19:47)
[2022-02-21] MEDS: SODIUM CHLORIDE 0.9% 1,000 ML IV SCH (21:40)
[2022-02-21] MEDS: ENOXAPARIN 40 MG/0.4 ML SYRINGE SUBCUT SCH (23:38)
[2022-02-21] MEDS: ATORVASTATIN 40 MG TABLET PO SCH (23:39)
[2022-02-22] MEDS ORDERED: AZTREONAM 500 MG in SODIUM CHLORIDE 0.9% 100 ML IV SCH (04:00)
[2022-02-22 04:49] LABS: Basophils % 0.3 % (0.0-0.8); Eosinophils % 0.1 % (0.00-10.9); Hematocrit 34.9 VOL% (35.7-47.0); Hemoglobin 10.7 GM/DL (12.0-16.0); Immature Granulocytes % 0.9 %; Immature Granulocytes Absolute 0.14 #; Lymphocytes # 1.6 10*3/uL (1.4-4.0); Lymphocytes % 10.9 % (21.3-54.2); Mean Corpuscular HGB Conc 30.7 GM/DL (32-36); Mean Platelet Volume 10.2 FL (9.6-12.0); Monocytes # 0.7 10*3/uL (0.11-0.8); Monocytes % 4.8 % (1.7-12.7); Platelet Count 322 T/CUMM (130-400); Red Blood Count 4.53 MC/CUMM (3.8-5.5); Red Cell Distribution Width 23.8 % (9.3-17.3); White Blood Count 14.8 T/CUMM (4-12)
[2022-02-22 05:18] LABS: Albumin 2.8 G/DL (3.4-5.0); Bilirubin,Total 0.4 MG/DL (0.20-1.00); Calcium 8.7 MG/DL (8.5-10.1); Osmolality,Calculated 281.1 MOS/KG (273-304); Potassium 2.9 MMOL/L (3.5-5.1); Risk Ratio 1.97; Total Protein 6.3 G/DL (6.4-8.2); VLDL Cholesterol 14.8 MG/DL
[2022-02-22] MEDS ORDERED: POTASSIUM CHLORIDE 20 MEQ TABLET PO SCH (09:00)
[2022-02-22] MEDS ORDERED: MAGNESIUM SULF RIDER 2 GM/50 ML PREMIX IV ONE (09:00)
[2022-02-22] MEDS: SODIUM CHLORIDE 0.9% 1,000 ML IV SCH (10:00)
[2022-02-22] MEDS: LEVOFLOXACIN INJ 500 MG/100 ML PREMIX IV SCH (10:00)
[2022-02-22] MEDS: PANTOPRAZOLE 40 MG TABLET PO SCH (10:01)
[2022-02-22] MEDS: ASPIRIN EC 81 MG TABLET PO SCH (10:01)
[2022-02-22] MEDS ORDERED: POTASSIUM BICARB EFFERVESCENT 20 MEQ TAB.EFF PO ONE (12:00)
[2022-02-22] MEDS: POTASSIUM BICARB EFFERVESCENT 20 MEQ TAB.EFF PO SCH ×2 (14:01→22:16)
[2022-02-22] MEDS: ENOXAPARIN 40 MG/0.4 ML SYRINGE SUBCUT SCH (22:16)
[2022-02-22] MEDS: ATORVASTATIN 40 MG TABLET PO SCH (22:16)
[2022-02-23] MEDS: SODIUM CHLORIDE 0.9% 1,000 ML IV SCH ×3 (02:18→11:11)
[2022-02-23] MEDS: ZINC OXIDE PASTE 113 GM TUBE TOP SCH ×3 (02:18→21:08)
[2022-02-23 05:17] LABS: Calcium 8.4 MG/DL (8.5-10.1); Osmolality,Calculated 283.8 MOS/KG (273-304); Potassium 3.2 MMOL/L (3.5-5.1)
[2022-02-23] MEDS: LEVOFLOXACIN INJ 500 MG/100 ML PREMIX IV SCH (08:00)
[2022-02-23] MEDS: ASPIRIN EC 81 MG TABLET PO SCH (08:00)
[2022-02-23] MEDS: PANTOPRAZOLE 40 MG TABLET PO SCH (08:00)
[2022-02-23] MEDS: ENOXAPARIN 40 MG/0.4 ML SYRINGE SUBCUT SCH (21:08)
[2022-02-23] MEDS: ATORVASTATIN 40 MG TABLET PO SCH (21:08)
[2022-02-23] MEDS: POTASSIUM CHLORIDE 20 MEQ TABLET PO SCH (21:08)
[2022-02-24 06:31] LABS: Calcium 8.4 MG/DL (8.5-10.1); Osmolality,Calculated 281.8 MOS/KG (273-304); Potassium 3.2 MMOL/L (3.5-5.1)
[2022-02-24] MEDS: ASPIRIN EC 81 MG TABLET PO SCH (08:02)
[2022-02-24] MEDS: SODIUM CHLORIDE 0.9% 1,000 ML IV SCH ×2 (08:02)
[2022-02-24] MEDS: POTASSIUM CHLORIDE 20 MEQ TABLET PO SCH (08:02)
[2022-02-24] MEDS: ZINC OXIDE PASTE 113 GM TUBE TOP SCH (08:02)
[2022-02-24] MEDS: LEVOFLOXACIN INJ 500 MG/100 ML PREMIX IV SCH (08:03)
[2022-02-24] MEDS: PANTOPRAZOLE 40 MG TABLET PO SCH (08:03)
[2022-02-24 08:45] VITALS: BP 164/94
== END 2022-02-24 10:43 | DRG 64 ==
LOC: EDUNIT# → EDSEX → N.ED 11:16 → N.EDINP 18:43 → N.5E 20:43 → N.2E 02-23 11:09
PROVIDERS: ADMIT Internal Medicine Geriatric Medicine; ATTEND Internal Medicine Geriatric Medicine